=== PATIENT | female | born 1950 | race Native Hawaiian/Other Pacific Islander ===

== ENCOUNTER 2017-08-12 09:35 | Inpatient (IN) | payer OTHER, SELFPAY ==
[2017-08-12] VITALS (27 sets, daily range): BP systolic 80–195; BP diastolic 40–117; PULSE 61–67; RESP 11–24; TEMP 36.1–37.1; O2SAT 95–100; BMI 42.0
--- NOTE | 2017-08-12 | DI.CT.S_ITS ---
PROCEDURE: CT HEAD/BRAIN WO CON INDICATIONS: FOUND DOWN TECHNIQUE: Noncontrast 4.5 mm thick angled axial sections acquired from the foramen magnum to the vertex, with coronal and sagittal reformats. For radiation dose reduction, the following was used: automated exposure control, adjustment of mA and/or kV according to patient size. Plain films: None. FINDINGS: Image quality: Excellent. CSF spaces: Basal cisterns are patent. No extra-axial fluid collections. The ventricles are symmetric in size and shape. Brain: No intracranial bleeds or brain parenchymal masses. There is a partially calcified 8 x 9 mm radiodensity located just to the left of the posterior midline falx, likely a small meningioma without adjacent edema or mass effect There is cerebral volume loss for age, with resultant ventricular and sulcal prominence. There also is a region of what appears to be chronic encephalomalacia at the posterior right temporal parietal region, with an overall estimated dimension of up to 5.2 cm. The absence of adjacent mass effect given this low attenuation argues towards chronicity rather than subacute stroke. There are periventricular and deep white matter chronic small vessel ischemic changes. There is intracranial internal carotid artery atherosclerosis. Skull and face: Calvarium and visualized facial bones appear intact, without suspicious lesions. Sinuses: Visualized sinuses and mastoids are clear. IMPRESSION: 1. 5.2 cm area of right posterior temporal parietal low attenuation in the cortex and subcortical white matter without mass effect consistent with chronic encephalomalacia from prior stroke rather than subacute stroke. MR scanning may be warranted for more accurate assessment. 2. 8 x 9 mm presumed meningioma without adjacent mass effect or edema at the left paramedian posterior left cerebrum, occipital parietal junction, as an incidental finding. This area could be assessed with MR scanning with contrast to establish a definitive diagnosis. 3. If possible it would be valuable to obtain old head CT or MR scanning if available for comparison. Dictated by: Asa Garcia M.D. on 08/12/2017 at 9:54 Approved by: Asa Garcia M.D. on 08/12/2017 at 9:59
[2017-08-12] MEDS: KETAMINE 500 MG/5 ML INJ 300 MG IV (09:50)
[2017-08-12] MEDS: SUCCINYLCHOLINE 200 MG/10 ML VIAL 150 MG IV (09:50)
--- NOTE | 2017-08-12 09:50 | DI.RAD.S_ITS ---
PROCEDURE: XR CHEST 1V INDICATIONS: intubation TECHNIQUE: One view of the chest was acquired. COMPARISON: [facility], CT, CT ANGIO CHEST ABDOMEN PELVIS, 08/12/2017, 10:28. [facility], CR, ABDOMEN ACUTE SERIES, 07/30/2016, 14:06. FINDINGS: Surgical changes and devices: The tip of the endotracheal tube is within the right mainstem bronchus. There is a cardiac pacemaker. Lungs and pleura: Left lower lobe infiltrates suspicious for pneumonia or atelectasis. No pleural effusions or pneumothorax. Mediastinum: Mediastinal contours appear normal. Heart size is normal. Bones and chest wall: No suspicious bony lesions. Overlying soft tissues appear unremarkable. IMPRESSION: 1. The tip of the endotracheal tube is within the right mainstem bronchus. 2. Left lower lobe pneumonia or atelectasis. Dr. Johnson was informed of the result on 08/12/2017 at 1101 hours. The ET tube was pulled back. On the follow up CT, it is 1.2 cm above cezar. Dictated by: Francesco Rodriguez M.D. on 08/12/2017 at 10:58 Approved by: Francesco Rodriguez M.D. on 08/12/2017 at 11:02
--- NOTE | 2017-08-12 09:59 | DI.CT.S_ITS ---
PROCEDURE: CT ANGIO CHEST ABDOMEN PELVIS INDICATIONS: Unresponsive TECHNIQUE: Precontrast 5 mm thick sections acquired from the lung apices to the iliac crests. After the administration of intravenous contrast, 2.5 mm thick sections again acquired from the lung apices to the iliac crests. Maximum intensity projection (MIP) oblique sagittal and coronal reformats were then acquired. For radiation dose reduction, the following was used: automated exposure control. COMPARISON: [facility], CR, XR CHEST 1V, 08/12/2017, 9:49. FINDINGS: Image quality: Excellent. AORTA: The aorta is normal in caliber and position. No aneurysm or dissection. The aortic root measures 3.3 cm in diameter. The ascending aorta measures 3.2 cm in diameter. The proximal aortic arch measures 3.1 cm, tapering to 2.6 cm and is large. Descending thoracic aorta measures from 2.2 cm to 2.4 cm. Abdominal aorta is normal in size. CHEST: Lungs and pleura: Left lower lobe infiltrate and consolidation consistent with pneumonia. There is right basilar atelectasis. Mild bilateral groundglass infiltrates may be secondary to mild pulmonary edema. No pleural effusions or pneumothorax. Central and peripheral airways are patent and normal in caliber. Mediastinum: There is an endotracheal tube with the tip 1.2 cm above cezar. Heart size is normal. No pericardial effusion. No mediastinal or hilar adenopathy by size criteria. Central pulmonary arteries are normal in size. Esophagus is normal in caliber. Distal esophagus is distended likely secondary to gastroesophageal reflux. Bones and chest wall: No axillary adenopathy by size criteria. Thyroid gland is normal. No suspicious bony lesions. No vertebral body compression fractures. Multiple old left rib fractures are noted. ABDOMEN: Vasculature: Celiac trunk is patent and normal in color. 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 Inferior mesenteric artery is patent. There is a single renal artery on each side with renal artery ostium calcifications. Renal arteries are patent. Solid organs: Liver is normal in size and enhancement. Gallbladder contains ossified gallstones. Biliary system is non-dilated. Pancreas is atrophic with fatty infiltration. Spleen is normal in size and enhancement. No adrenal nodules. Both kidneys are normal in size and enhancement, without hydronephrosis. Peritoneum and bowel: No free fluid or air. Bowel loops are normal in caliber and wall thickness. Nodes and vessels: No retroperitoneal or mesenteric adenopathy by size criteria. Inferior vena cava is normal in morphology. Miscellaneous: No ventral hernias. PELVIS: Genitourinary: Bladder is contracted with a Gonzalez catheter. Miscellaneous: No inguinal hernias or adenopathy. No ventral hernias. Bones: No suspicious bony lesions. No vertebral body compression fractures. There is grade 1 anterolisthesis of L5 over S1. Degenerative disc and facet disease in thoracic and lumbar spine. IMPRESSION: 1. No evidence for aortic dissection or aneurysm. 2. High-grade stenosis of SMA. 3. Left lower lobe pneumonia. 4. Mild bilateral groundglass infiltrates may be secondary to superimposed pulmonary edema. Recommend clinical correlation. 4. Distended distal esophagus may be secondary gastroesophageal reflux. 5. Cholelithiasis. Dictated by: Francesco Rodriguez M.D. on 08/12/2017 at 11:02 Approved by: Francesco Rodriguez M.D. on 08/12/2017 at 11:18
[2017-08-12 10:27] LABS: Add Manual Diff / Slide Review NO; Basophils Percent Auto 0.5 % (0-2); Hematocrit 46.2 % (36-46); Hemoglobin 14.9 g/dL (12.0-16.0); Lymphocytes Percent Auto 3.8 % (25-40); Mean Corpuscular HGB Conc 32.2 % (30-36); Mean Corpuscular Hemoglobin 28.9 PG (26-34); Mean Corpuscular Volume 89.7 fL (80-100); Monocytes Percent Auto 3.2 % (3-14); Neutrophils Absolute Auto 11900 /uL (3000-5900); Neutrophils Percent Auto 92.5 % (50-75); Platelet Count 214 X10^3/uL (150-400); Red Blood Cell Count 5.15 X10^6/uL (4.0-5.2); Red Cell Distribution Width 14.2 % (11.6-14.8); White Blood Cell Count 12.9 X10^3/uL (4.5-11.0)
--- NOTE | 2017-08-12 10:27 | ED.GENADULT ---
HPI - General Adult General Chief complaint: Neuro Symptoms/Deficit Stated complaint: Weakness Time Seen by Provider: 08/12/17 09:50 Source: EMS Mode of arrival: EMS Limitations: altered mental status History of Present Illness HPI narrative: Patient is a 67-year-old female who was found down by her family this morning. According the EMS she was found prone and not responsive but breathing. She does have a history of stroke, and is on Eliquis for her heart. She has a known AICD. She was last known normal last night. He was doing well. She however has not been taking all of her medications due to insurance issues. Related Data Home Medications Medication Instructions Recorded Confirmed apixaban [Eliquis] 5 mg PO BID #0 07/30/16 08/12/17 atorvastatin 40 mg PO QDAY #0 07/30/16 08/12/17 carvedilol [Coreg] 25 mg PO BIDCC #0 07/30/16 08/12/17 chlorthalidone 25 mg PO DAILY #0 07/30/16 08/12/17 diltiazem HCl [Cartia XT] 120 mg PO QDAY #0 07/30/16 08/12/17 insulin glargine [Lantus Solostar 60 units SQ DAILY #0 07/30/16 08/12/17 U-100 Insulin] insulin glulisine U-100 [Apidra 1 dose SQ TIDCC #0 07/30/16 08/12/17 SoloStar U-100 Insulin] losartan 50 mg PO BID #0 07/30/16 08/12/17 trazodone 50 mg PO DAILY 08/12/17 08/12/17 Allergies Allergy/AdvReac Type Severity Reaction Status Date / Time lisinopril [LISINOPRIL] Allergy Unknown RASG Verified 08/12/17 14:48 metformin [From GLUCOPHAGE] Allergy Unknown RASH Unverified 08/12/17 14:48 naproxen [From NAPROSYN] Allergy Unknown RASH Unverified 08/12/17 14:49 Review of Systems Review of Systems Unable to obtain [facility] Medical History Diabetes (Chronic) Atrial fibrillation (Acute) Pacemaker (Chronic) Hypertension (Acute) Social History household members: family Smoking Status: Former smoker alcohol intake: never Exam Initial Vital Signs Initial Vital Signs: Vital Signs Pulse Rate 65 08/12/17 10:54 Respiratory Rate 11 L 07/06/18 10:54 Blood Pressure 163/97 H 08/12/17 10:54 Pulse Oximetry 97 08/12/17 10:54 Const General: ill appearing Other: Obtunded HENMT Head: normal to inspection, normocephalic, atraumatic and No abrasion Eyes Pupils: PERRL EOM: EOM intact bilaterally Neck Neck: normal visual inspection Chest Chest: normal inspection of the chest Resp Effort & Inspection: not able to speak in complete sentences, decreased respiratory effort, grunting and labored Cardio Rate: regular rate Rhythm: regular rhythm Heart Sounds: S1 normal and S2 normal GI Palpation: soft (obese), No firm, No guarding and No rigid Skin General: no rashes or lesions noted, No jaundice and No petechiae Neuro General: not alert, awake (Not appropriate), not oriented x3 and moves all extremities Cranial Nerves: CN's II-XI intact bilaterally and facial strength normal Procedures Intubation Time out performed: Yes sedative: Ketamine Mg Given: 300 paralytic: Succinylcholine Mg Given: 150 Laryngoscope: fiber optic video scope ([place] scope) ET Tube Size: 7.5 ET Tube Uncuffed: No Tube Secured Depth (cm): 23 Tube Secured Location: lips Tube Placement Confirmation: Visualized tube passing through cords, Equal breath sounds bilaterally, No breath sounds over epigastrium, Confirmation by capnometry and Chest Xray Patient Tolerated Procedure: Well Intubation Complications: none Course Orders Ordered: ED Orders 08/12/17 09:52 EKG-12 Lead Stat 08/12/17 09:59 CT angio chest abdomen pelvis Stat 08/12/17 10:10 Acetaminophen Stat B Type Natriuretic Peptide Stat Complete Blood Count AUTO DIFF Stat Comprehensive Metabolic Panel Stat Ethanol (ETOH) Stat Ketones (Beta-Hydroxybutyrate) Stat Lactate (Lactic Acid) Stat Partial Thromboplastin Time Stat Procalcitonin Stat Prothrombin Time INR Stat Salicylate Stat Troponin & CK Cardiac Panel Stat 08/12/17 10:30 Urinalysis and Microscopic Stat Urine Culture Stat 08/12/17 11:00 ABG [Arterial Blood Gas] Stat 08/12/17 11:35 Blood Culture Stat 08/12/17 12:08 Education, smoking cessation ONGOING 08/12/17 12:40 MRSA PCR Stat 08/12/17 13:30 Magnesium Urgent Potassium Urgent 08/12/17 13:31 Glucose Stat 08/12/17 16:10 Lactate 4HR (Lactic Acid Rflx) Stat 08/13/17 05:00 Basic Metabolic Panel Routine Complete Blood Count AUTO DIFF Routine Enoxaparin Sodium (Lovenox) 40 mg SUBCUT DAILY AMBER Levofloxacin (Levaquin) 750 mg in 150 mls @ 100 mls/hr IV Q24H AMBER Last Infusion: 08/12/17 16:28 Dose: 0 mls/hr Admin: 08/12/17 12:51 Dose: 100 mls/hr Propofol (Propofol) 1,000 mg in 100 mls @ 9 mls/hr IV TITRATE AMBER; Protocol Last Admin: 08/12/17 12:51 Dose: 9 mls/hr Sodium Chloride (Normal Saline 0.9%) 1,000 mls @ 1,000 mls/hr IV BOLUS AMBER Stop: 08/13/17 13:14 Last Infusion: 08/12/17 13:27 Dose: 0 mls/hr Admin: 08/12/17 12:49 Dose: 1,000 mls/hr Insulin Human Regular 100 unit (/ Sodium Chloride) 100 mls @ 6 mls/hr IV TITRATE AMBER; Protocol Last Titration: 08/12/17 18:05 Dose: 12 units/hr, 12 mls/hr Admin: 08/12/17 15:56 Dose: 6 units/hr, 6 mls/hr Sodium Chloride (Normal Saline 0.9%) 1,000 mls @ 150 mls/hr IV CONT AMBER Last Admin: 08/12/17 13:47 Dose: 150 mls/hr Insulin Glargine (Lantus Solostar (Pen)) 60 unit SUBCUT DAILY AMBER Last Admin: 08/12/17 16:31 Dose: 60 unit Discontinued Medications Furosemide (Lasix) 40 mg IV NOW ONE Stop: 08/12/17 10:59 Last Admin: 08/12/17 11:10 Dose: Not Given Sodium Chloride (Normal Saline 0.9%) 1,000 mls @ 150 mls/hr IV CONT AMBER Last Admin: 08/12/17 11:10 Dose: 150 mls/hr Calcium Gluconate 4.65 meq/ (Sodium Chloride) 60 mls @ 120 mls/hr IV NOW ONE Stop: 08/12/17 10:59 Last Infusion: 08/12/17 12:48 Dose: 0 mls/hr Admin: 08/12/17 11:43 Dose: 120 mls/hr Propofol (Propofol) 1,000 mg in 100 mls @ 20 mls/hr IV TITRATE AMBER; Protocol Last Admin: 08/12/17 11:53 Dose: 20 mls/hr Sodium Chloride (Normal Saline 0.9%) 1,000 mls @ 1,000 mls/hr IV BOLUS ONE Stop: 08/12/17 12:50 Last Infusion: 08/12/17 12:48 Dose: 0 mls/hr Admin: 08/12/17 11:52 Dose: 1,000 mls/hr Insulin Human Regular (Humulin R) 10 unit IV NOW ONE Stop: 08/12/17 10:59 Last Admin: 08/12/17 11:10 Dose: 10 unit Ketamine HCl (Ketalar) 300 mg IV NOW ONE Stop: 08/12/17 09:51 Last Admin: 08/12/17 09:50 Dose: 300 mg Lorazepam (Ativan) 2 mg IV NOW ONE Stop: 08/12/17 11:04 Last Admin: 08/12/17 11:10 Dose: 2 mg Propofol (Diprivan) 250 mg IV NOW ONE Stop: 08/12/17 11:58 Last Admin: 08/12/17 12:00 Dose: 250 mg Succinylcholine Chloride (Quelicin) 150 mg IV NOW ONE Stop: 08/12/17 09:51 Last Admin: 08/12/17 09:50 Dose: 150 mg Vital Signs - 8 hr 08/12/17 10:54 08/12/17 11:02 08/12/17 11:30 Temperature 97.1 F L Pulse Rate 65 61 64 Respiratory Rate 11 L 16 16 Blood Pressure 163/97 H Blood Pressure [Right Arm] 116/90 H 136/117 H Pulse Oximetry 97 100 97 08/12/17 11:39 08/12/17 12:01 08/12/17 12:03 Temperature 97.0 F L Pulse Rate 65 65 65 Respiratory Rate 16 16 16 Blood Pressure 133/85 H Blood Pressure [Right Arm] 80/55 L 104/82 H Pulse Oximetry 95 98 99 08/12/17 12:42 08/12/17 12:59 08/12/17 13:03 Temperature Pulse Rate 65 67 65 Respiratory Rate 16 16 24 Blood Pressure 119/81 H 195/116 H Blood Pressure [Right Arm] Pulse Oximetry 98 98 08/12/17 14:03 08/12/17 14:40 08/12/17 15:03 Temperature Pulse Rate 65 65 65 Respiratory Rate 15 16 16 Blood Pressure 152/51 H 89/40 L 157/86 H Blood Pressure [Right Arm] Pulse Oximetry 99 100 100 08/12/17 16:16 08/12/17 16:32 08/12/17 17:07 Temperature 98.7 F 98.4 F Pulse Rate 65 65 Respiratory Rate 16 16 Blood Pressure 122/70 H 109/79 Blood Pressure [Right Arm] Pulse Oximetry 99 99 99 08/12/17 18:08 Temperature Pulse Rate 65 Respiratory Rate 16 Blood Pressure 117/73 Blood Pressure [Right Arm] Pulse Oximetry 99 Medical Decision Making MDM Narrative Medical decision making narrative: Patient intubated for airway protection. She was quite up tendon not able to follow commands and no gag reflex she was making some purposeful movements. It sounds as though she stopped taking some of her medications due to insurance reasons. She is found to be hyperglycemic and hyperkalemic. He is given insulin and IV fluids. Other testing and workup fairly unremarkable. Family is at bedside. Dr. Storey has been called and updated on test results and current treatments. He is in the ED now to evaluate patient. Lab Data Lab results reviewed: Yes I reviewed the patient's lab results. Result diagrams: 08/12/17 10:10 08/12/17 13:31 Lab Results 08/12/17 08/12/17 08/12/17 Range/Units 10:10 10:10 10:10 WBC 12.9 H (4.5-11.0) X10^3/uL RBC 5.15 (4.0-5.2) X10^6/uL Hgb 14.9 (12.0-16.0) g/dL Hct 46.2 H (36-46) % MCV 89.7 (80-100) fL MCH 28.9 (26-34) PG MCHC 32.2 (30-36) % RDW 14.2 (11.6-14.8) % Plt Count 214 (150-400) X10^3/uL Neut % (Auto) 92.5 H (50-75) % Lymph % (Auto) 3.8 L (25-40) % [place] % (Auto) 3.2 (3-14) % Eos % (Auto) 0.0 L (2-4) % Baso % (Auto) 0.5 (0-2) % Neut # (Auto) 99584 H (9704-4768) /uL PT (10.1-12.7) SECONDS INR (0.9-1.3) APTT (26.4-36.2) SECONDS ABG pH (7.35-7.45) ABG pCO2 (35-45) mmHg ABG pO2 (80-105) mmHg ABG HCO3 (23-27) mmol/L ABG Total CO2 (23-27) mmol/L ABG O2 Saturation (95-100) % ABG Base Excess (-2-3) mmol/L FiO2 Sodium 131 L (137-145) mmol/L Potassium 6.0 H (3.4-5.1) mmol/L Chloride 95 L (98-107) mmol/L Carbon Dioxide 21 L (22-32) mmol/L BUN 42 H (7-17) mg/dL Creatinine 1.60 H (0.52-1.04) mg/dL Estimated GFR 32.2 L (>60) mL/min BUN/Creatinine Ratio 26.3 H (6-22) Glucose 643 H* (80-110) mg/dL Lactate 4.1 H (0.7-2.1) mmol/L Calcium 8.6 (8.4-10.2) mg/dL Magnesium (1.6-2.3) mg/dL Total Bilirubin 0.6 (0.2-1.3) mg/dL AST 34 (14-36) IU/L ALT 25 (9-52) IU/L Alkaline Phosphatase 201 H (38-126) U/L Total Creatine Kinase 133 (30-135) U/L CK-MB (CK-2) 4.16 H (<2.37) ng/mL CK-MB (CK-2) Rel Index 3.1 (1.5-5.0) % Troponin I 0.068 H (0.01-0.034) ng/mL B-Natriuretic Peptide (<100) Total Protein 7.5 (6.3-8.2) g/dL Albumin 3.5 (3.5-5.0) g/dL Globulin 4.0 (1.7-4.1) g/dL Albumin/Globulin Ratio 0.9 L (1.0-2.8) Procalcitonin (<0.5) ng/mL Urine Color Urine Appearance Urine pH (4.5-8.0) Ur Specific [place] (1.000-1.035) Urine Protein (Negative) Urine Glucose (UA) (Normal) g/dL Urine Ketones (NEGATIVE) Urine Occult Blood (Negative) Urine Nitrate (Negative) Urine Bilirubin (NEGATIVE) Urine Urobilinogen (0.2) E.U./dL Ur Leukocyte Esterase (NEGATIVE) Urine RBC (0-5/HPF) Urine WBC (0-5/HPF) Amorphous Sediment Urine Bacteria (None) Urine Mucus (Negative) Urine Yeast (None) Ur Culture Indicated? Micro UA Comment Nasal Screen MRSA (PCR) (Negative) Salicylates < 1.0 (<20) mg/dL Acetaminophen < 10 L (10-30) ug/mL Ethyl Alcohol < 10 mg/dL Ketones (<0.27) mmol/L 08/12/17 08/12/17 08/12/17 Range/Units 10:10 10:10 10:10 WBC (4.5-11.0) X10^3/uL RBC (4.0-5.2) X10^6/uL Hgb (12.0-16.0) g/dL Hct (36-46) % MCV (80-100) fL MCH (26-34) PG MCHC (30-36) % RDW (11.6-14.8) % Plt Count (150-400) X10^3/uL Neut % (Auto) (50-75) % Lymph % (Auto) (25-40) % [place] % (Auto) (3-14) % Eos % (Auto) (2-4) % Baso % (Auto) (0-2) % Neut # (Auto) (3283-7774) /uL PT 11.4 (10.1-12.7) SECONDS INR 1.1 (0.9-1.3) APTT 25 L (26.4-36.2) SECONDS ABG pH (7.35-7.45) ABG pCO2 (35-45) mmHg ABG pO2 (80-105) mmHg ABG HCO3 (23-27) mmol/L ABG Total CO2 (23-27) mmol/L ABG O2 Saturation (95-100) % ABG Base Excess (-2-3) mmol/L FiO2 Sodium (137-145) mmol/L Potassium (3.4-5.1) mmol/L Chloride (98-107) mmol/L Carbon Dioxide (22-32) mmol/L BUN (7-17) mg/dL Creatinine (0.52-1.04) mg/dL Estimated GFR (>60) mL/min BUN/Creatinine Ratio (6-22) Glucose (80-110) mg/dL Lactate (0.7-2.1) mmol/L Calcium (8.4-10.2) mg/dL Magnesium (1.6-2.3) mg/dL Total Bilirubin (0.2-1.3) mg/dL AST (14-36) IU/L ALT (9-52) IU/L Alkaline Phosphatase (38-126) U/L Total Creatine Kinase (30-135) U/L CK-MB (CK-2) (<2.37) ng/mL CK-MB (CK-2) Rel Index (1.5-5.0) % Troponin I (0.01-0.034) ng/mL B-Natriuretic Peptide 1120.0 H (<100) Total Protein (6.3-8.2) g/dL Albumin (3.5-5.0) g/dL Globulin (1.7-4.1) g/dL Albumin/Globulin Ratio (1.0-2.8) Procalcitonin (<0.5) ng/mL Urine Color Urine Appearance Urine pH (4.5-8.0) Ur Specific [place] (1.000-1.035) Urine Protein (Negative) Urine Glucose (UA) (Normal) g/dL Urine Ketones (NEGATIVE) Urine Occult Blood (Negative) Urine Nitrate (Negative) Urine Bilirubin (NEGATIVE) Urine Urobilinogen (0.2) E.U./dL Ur Leukocyte Esterase (NEGATIVE) Urine RBC (0-5/HPF) Urine WBC (0-5/HPF) Amorphous Sediment Urine Bacteria (None) Urine Mucus (Negative) Urine Yeast (None) Ur Culture Indicated? Micro UA Comment Nasal Screen MRSA (PCR) (Negative) Salicylates (<20) mg/dL Acetaminophen (10-30) ug/mL Ethyl Alcohol mg/dL Ketones 1.88 H (<0.27) mmol/L 08/12/17 08/12/17 08/12/17 Range/Units 10:10 10:30 11:00 WBC (4.5-11.0) X10^3/uL RBC (4.0-5.2) X10^6/uL Hgb (12.0-16.0) g/dL Hct (36-46) % MCV (80-100) fL MCH (26-34) PG MCHC (30-36) % RDW (11.6-14.8) % Plt Count (150-400) X10^3/uL Neut % (Auto) (50-75) % Lymph % (Auto) (25-40) % [place] % (Auto) (3-14) % Eos % (Auto) (2-4) % Baso % (Auto) (0-2) % Neut # (Auto) (3766-9083) /uL PT (10.1-12.7) SECONDS INR (0.9-1.3) APTT (26.4-36.2) SECONDS ABG pH 7.32 L (7.35-7.45) ABG pCO2 46.6 H (35-45) mmHg ABG pO2 370 H* (80-105) mmHg ABG HCO3 22 L (23-27) mmol/L ABG Total CO2 24 (23-27) mmol/L ABG O2 Saturation 100 (95-100) % ABG Base Excess -4.0 L (-2-3) mmol/L FiO2 100 Sodium (137-145) mmol/L Potassium (3.4-5.1) mmol/L Chloride (98-107) mmol/L Carbon Dioxide (22-32) mmol/L BUN (7-17) mg/dL Creatinine (0.52-1.04) mg/dL Estimated GFR (>60) mL/min BUN/Creatinine Ratio (6-22) Glucose (80-110) mg/dL Lactate (0.7-2.1) mmol/L Calcium (8.4-10.2) mg/dL Magnesium (1.6-2.3) mg/dL Total Bilirubin (0.2-1.3) mg/dL AST (14-36) IU/L ALT (9-52) IU/L Alkaline Phosphatase (38-126) U/L Total Creatine Kinase (30-135) U/L CK-MB (CK-2) (<2.37) ng/mL CK-MB (CK-2) Rel Index (1.5-5.0) % Troponin I (0.01-0.034) ng/mL B-Natriuretic Peptide (<100) Total Protein (6.3-8.2) g/dL Albumin (3.5-5.0) g/dL Globulin (1.7-4.1) g/dL Albumin/Globulin Ratio (1.0-2.8) Procalcitonin 0.05 (<0.5) ng/mL Urine Color Yellow Urine Appearance Clear Urine pH 5.5 (4.5-8.0) Ur Specific [place] 1.010 (1.000-1.035) Urine Protein 3+ H (Negative) Urine Glucose (UA) 3+ (Normal) g/dL Urine Ketones Trace H (NEGATIVE) Urine Occult Blood 3+ H (Negative) Urine Nitrate Negative (Negative) Urine Bilirubin Negative (NEGATIVE) Urine Urobilinogen 0.2 (0.2) E.U./dL Ur Leukocyte Esterase Negative (NEGATIVE) Urine RBC 5-10/hpf H (0-5/HPF) Urine WBC 0-1/hpf (0-5/HPF) Amorphous Sediment 2+ Urine Bacteria Few (2-10) H (None) Urine Mucus 1+ H (Negative) Urine Yeast 1-5/hpf H (None) Ur Culture Indicated? Specimen cultured Micro UA Comment Not Reportable Nasal Screen MRSA (PCR) (Negative) Salicylates (<20) mg/dL Acetaminophen (10-30) ug/mL Ethyl Alcohol mg/dL Ketones (<0.27) mmol/L 08/12/17 08/12/17 08/12/17 Range/Units 12:40 13:30 13:31 WBC (4.5-11.0) X10^3/uL RBC (4.0-5.2) X10^6/uL Hgb (12.0-16.0) g/dL Hct (36-46) % MCV (80-100) fL MCH (26-34) PG MCHC (30-36) % RDW (11.6-14.8) % Plt Count (150-400) X10^3/uL Neut % (Auto) (50-75) % Lymph % (Auto) (25-40) % [place] % (Auto) (3-14) % Eos % (Auto) (2-4) % Baso % (Auto) (0-2) % Neut # (Auto) (4618-1795) /uL PT (10.1-12.7) SECONDS INR (0.9-1.3) APTT (26.4-36.2) SECONDS ABG pH (7.35-7.45) ABG pCO2 (35-45) mmHg ABG pO2 (80-105) mmHg ABG HCO3 (23-27) mmol/L ABG Total CO2 (23-27) mmol/L ABG O2 Saturation (95-100) % ABG Base Excess (-2-3) mmol/L FiO2 Sodium (137-145) mmol/L Potassium 4.3 D (3.4-5.1) mmol/L Chloride (98-107) mmol/L Carbon Dioxide (22-32) mmol/L BUN (7-17) mg/dL Creatinine (0.52-1.04) mg/dL Estimated GFR (>60) mL/min BUN/Creatinine Ratio (6-22) Glucose 540 H* (80-110) mg/dL Lactate (0.7-2.1) mmol/L Calcium (8.4-10.2) mg/dL Magnesium 1.6 (1.6-2.3) mg/dL Total Bilirubin (0.2-1.3) mg/dL AST (14-36) IU/L ALT (9-52) IU/L Alkaline Phosphatase (38-126) U/L Total Creatine Kinase (30-135) U/L CK-MB (CK-2) (<2.37) ng/mL CK-MB (CK-2) Rel Index (1.5-5.0) % Troponin I (0.01-0.034) ng/mL B-Natriuretic Peptide (<100) Total Protein (6.3-8.2) g/dL Albumin (3.5-5.0) g/dL Globulin (1.7-4.1) g/dL Albumin/Globulin Ratio (1.0-2.8) Procalcitonin (<0.5) ng/mL Urine Color Urine Appearance Urine pH (4.5-8.0) Ur Specific [place] (1.000-1.035) Urine Protein (Negative) Urine Glucose (UA) (Normal) g/dL Urine Ketones (NEGATIVE) Urine Occult Blood (Negative) Urine Nitrate (Negative) Urine Bilirubin (NEGATIVE) Urine Urobilinogen (0.2) E.U./dL Ur Leukocyte Esterase (NEGATIVE) Urine RBC (0-5/HPF) Urine WBC (0-5/HPF) Amorphous Sediment Urine Bacteria (None) Urine Mucus (Negative) Urine Yeast (None) Ur Culture Indicated? Micro UA Comment Nasal Screen MRSA (PCR) Negative for mrsa (Negative) Salicylates (<20) mg/dL Acetaminophen (10-30) ug/mL Ethyl Alcohol mg/dL Ketones (<0.27) mmol/L 08/12/17 Range/Units 16:10 WBC (4.5-11.0) X10^3/uL RBC (4.0-5.2) X10^6/uL Hgb (12.0-16.0) g/dL Hct (36-46) % MCV (80-100) fL MCH (26-34) PG MCHC (30-36) % RDW (11.6-14.8) % Plt Count (150-400) X10^3/uL Neut % (Auto) (50-75) % Lymph % (Auto) (25-40) % [place] % (Auto) (3-14) % Eos % (Auto) (2-4) % Baso % (Auto) (0-2) % Neut # (Auto) (4164-6973) /uL PT (10.1-12.7) SECONDS INR (0.9-1.3) APTT (26.4-36.2) SECONDS ABG pH (7.35-7.45) ABG pCO2 (35-45) mmHg ABG pO2 (80-105) mmHg ABG HCO3 (23-27) mmol/L ABG Total CO2 (23-27) mmol/L ABG O2 Saturation (95-100) % ABG Base Excess (-2-3) mmol/L FiO2 Sodium (137-145) mmol/L Potassium (3.4-5.1) mmol/L Chloride (98-107) mmol/L Carbon Dioxide (22-32) mmol/L BUN (7-17) mg/dL Creatinine (0.52-1.04) mg/dL Estimated GFR (>60) mL/min BUN/Creatinine Ratio (6-22) Glucose (80-110) mg/dL Lactate 3.3 H (0.7-2.1) mmol/L Calcium (8.4-10.2) mg/dL Magnesium (1.6-2.3) mg/dL Total Bilirubin (0.2-1.3) mg/dL AST (14-36) IU/L ALT (9-52) IU/L Alkaline Phosphatase (38-126) U/L Total Creatine Kinase (30-135) U/L CK-MB (CK-2) (<2.37) ng/mL CK-MB (CK-2) Rel Index (1.5-5.0) % Troponin I (0.01-0.034) ng/mL B-Natriuretic Peptide (<100) Total Protein (6.3-8.2) g/dL Albumin (3.5-5.0) g/dL Globulin (1.7-4.1) g/dL Albumin/Globulin Ratio (1.0-2.8) Procalcitonin (<0.5) ng/mL Urine Color Urine Appearance Urine pH (4.5-8.0) Ur Specific [place] (1.000-1.035) Urine Protein (Negative) Urine Glucose (UA) (Normal) g/dL Urine Ketones (NEGATIVE) Urine Occult Blood (Negative) Urine Nitrate (Negative) Urine Bilirubin (NEGATIVE) Urine Urobilinogen (0.2) E.U./dL Ur Leukocyte Esterase (NEGATIVE) Urine RBC (0-5/HPF) Urine WBC (0-5/HPF) Amorphous Sediment Urine Bacteria (None) Urine Mucus (Negative) Urine Yeast (None) Ur Culture Indicated? Micro UA Comment Nasal Screen MRSA (PCR) (Negative) Salicylates (<20) mg/dL Acetaminophen (10-30) ug/mL Ethyl Alcohol mg/dL Ketones (<0.27) mmol/L Imaging Data CT scan - head: Radiologist's impression: PROCEDURE: CT HEAD/BRAIN WO CON INDICATIONS: FOUND DOWN TECHNIQUE: Noncontrast 4.5 mm thick angled axial sections acquired from the foramen magnum to the vertex, with coronal and sagittal reformats. For radiation dose reduction, the following was used: automated exposure control, adjustment of mA and/or kV according to patient size. Plain films: None. FINDINGS: Image quality: Excellent. CSF spaces: Basal cisterns are patent. No extra-axial fluid collections. The ventricles are symmetric in size and shape. Brain: No intracranial bleeds or brain parenchymal masses. There is a partially calcified 8 x 9 mm radiodensity located just to the left of the posterior midline falx, likely a small meningioma without adjacent edema or mass effect There is cerebral volume loss for age, with resultant ventricular and sulcal prominence. There also is a region of what appears to be chronic encephalomalacia at the posterior right temporal parietal region, with an overall estimated dimension of up to 5.2 cm. The absence of adjacent mass effect given this low attenuation argues towards chronicity rather than subacute stroke. There are periventricular and deep white matter chronic small vessel ischemic changes. There is intracranial internal carotid artery atherosclerosis. Skull and face: Calvarium and visualized facial bones appear intact, without suspicious lesions. Sinuses: Visualized sinuses and mastoids are clear. IMPRESSION: 1. 5.2 cm area of right posterior temporal parietal low attenuation in the cortex and subcortical white matter without mass effect consistent with chronic encephalomalacia from prior stroke rather than subacute stroke. MR scanning may be warranted for more accurate assessment. 2. 8 x 9 mm presumed meningioma without adjacent mass effect or edema at the left paramedian posterior left cerebrum, occipital parietal junction, as an incidental finding. This area could be assessed with MR scanning with contrast to establish a definitive diagnosis. 3. If possible it would be valuable to obtain old head CT or MR scanning if available for comparison. Dictated by: Asa Garcia M.D. on 08/12/2017 at 9:54 Approved by: Asa Garcia M.D. on 08/12/2017 at 9:59 Chest x-ray: Radiologist's impression: PROCEDURE: XR CHEST 1V INDICATIONS: intubation TECHNIQUE: One view of the chest was acquired. COMPARISON: Located Within [facility], CT, CT ANGIO CHEST ABDOMEN PELVIS, 08/12/2017, 10:28. Located Within [facility], CR, ABDOMEN ACUTE SERIES, 07/30/2016, 14:06. FINDINGS: Surgical changes and devices: The tip of the endotracheal tube is within the right mainstem bronchus. There is a cardiac pacemaker. Lungs and pleura: Left lower lobe infiltrates suspicious for pneumonia or atelectasis. No pleural effusions or pneumothorax. Mediastinum: Mediastinal contours appear normal. Heart size is normal. Bones and chest wall: No suspicious bony lesions. Overlying soft tissues appear unremarkable. IMPRESSION: 1. The tip of the endotracheal tube is within the right mainstem bronchus. 2. Left lower lobe pneumonia or atelectasis. Dr. Johnson was informed of the result on 08/12/2017 at 1101 hours. The ET tube was pulled back. On the follow up CT, it is 1.2 cm above cezar. Dictated by: Francesco Rodriguez M.D. on 08/12/2017 at 10:58 Approved by: Francesco Rodriguez M.D. on 08/12/2017 at 11:02 angio chest ab pelvis: Radiologist's impression: PROCEDURE: CT ANGIO CHEST ABDOMEN PELVIS INDICATIONS: Unresponsive TECHNIQUE: Precontrast 5 mm thick sections acquired from the lung apices to the iliac crests. After the administration of intravenous contrast, 2.5 mm thick sections again acquired from the lung apices to the iliac crests. Maximum intensity projection (MIP) oblique sagittal and coronal reformats were then acquired. For radiation dose reduction, the following was used: automated exposure control. COMPARISON: Located Within [facility], CR, XR CHEST 1V, 08/12/2017, 9:49. FINDINGS: Image quality: Excellent. AORTA: The aorta is normal in caliber and position. No aneurysm or dissection. The aortic root measures 3.3 cm in diameter. The ascending aorta measures 3.2 cm in diameter. The proximal aortic arch measures 3.1 cm, tapering to 2.6 cm and is large. Descending thoracic aorta measures from 2.2 cm to 2.4 cm. Abdominal aorta is normal in size. CHEST: Lungs and pleura: Left lower lobe infiltrate and consolidation consistent with pneumonia. There is right basilar atelectasis. Mild bilateral groundglass infiltrates may be secondary to mild pulmonary edema. No pleural effusions or pneumothorax. Central and peripheral airways are patent and normal in caliber. Mediastinum: There is an endotracheal tube with the tip 1.2 cm above cezar. Heart size is normal. No pericardial effusion. No mediastinal or hilar adenopathy by size criteria. Central pulmonary arteries are normal in size. Esophagus is normal in caliber. Distal esophagus is distended likely secondary to gastroesophageal reflux. Bones and chest wall: No axillary adenopathy by size criteria. Thyroid gland is normal. No suspicious bony lesions. No vertebral body compression fractures. Multiple old left rib fractures are noted. ABDOMEN: Vasculature: Celiac trunk is patent and normal in color. 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 Inferior mesenteric artery is patent. There is a single renal artery on each side with renal artery ostium calcifications. Renal arteries are patent. Solid organs: Liver is normal in size and enhancement. Gallbladder contains ossified gallstones. Biliary system is non-dilated. Pancreas is atrophic with fatty infiltration. Spleen is normal in size and enhancement. No adrenal nodules. Both kidneys are normal in size and enhancement, without hydronephrosis. Peritoneum and bowel: No free fluid or air. Bowel loops are normal in caliber and wall thickness. Nodes and vessels: No retroperitoneal or mesenteric adenopathy by size criteria. Inferior vena cava is normal in morphology. Miscellaneous: No ventral hernias. PELVIS: Genitourinary: Bladder is contracted with a Gonzalez catheter. Miscellaneous: No inguinal hernias or adenopathy. No ventral hernias. Bones: No suspicious bony lesions. No vertebral body compression fractures. There is grade 1 anterolisthesis of L5 over S1. Degenerative disc and facet disease in thoracic and lumbar spine. IMPRESSION: 1. No evidence for aortic dissection or aneurysm. 2. High-grade stenosis of SMA. 3. Left lower lobe pneumonia. 4. Mild bilateral groundglass infiltrates may be secondary to superimposed pulmonary edema. Recommend clinical correlation. 4. Distended distal esophagus may be secondary gastroesophageal reflux. 5. Cholelithiasis. Dictated by: Francesco Rodriguez M.D. on 08/12/2017 at 11:02 Approved by: Francesco Rodriguez M.D. on 08/12/2017 at 11:18 ECG Data Attestation: I personally reviewed and interpreted this ECG as follows: Prior ECG tracings: available for review Interpretation: Paced rhythm rate [address] changes similar to previous EKG Discharge Plan Departure Patient Disposition: Admitted As Inpatient Clinical Impression: Acute metabolic encephalopathy, Respiratory failure, Acute hyperglycemia, Acute hyperkalemia Discharge Date/Time: 08/12/17 13:05 Interventions: ED Discharge Assessment Last Done: 08/12/17 12:42 Admit Date/Time: 08/12/17 11:50 Admit Provider: Amado Storey
[2017-08-12 10:38] LABS: Acetaminophen < 10 ug/mL (10-30); Alanine Aminotransferase 25 IU/L (9-52); Albumin 3.5 g/dL (3.5-5.0); Albumin Globulin Ratio 0.9 (1.0-2.8); Alkaline Phosphatase 201 U/L (38-126); Aspartate Aminotransferase 34 IU/L (14-36); BUN Creatinine Ratio 26.3 (6-22); Bilirubin Total 0.6 mg/dL (0.2-1.3); Blood Urea Nitrogen 42 mg/dL (7-17); Calcium 8.6 mg/dL (8.4-10.2); Carbon Dioxide 21 mmol/L (22-32); Chloride 95 mmol/L (98-107); Creatine Kinase 133 U/L (30-135); Estimated Glomerular Filt Rate 32.2 mL/min (>60); Ethanol (ETOH) < 10 mg/dL; INR 1.1 (0.9-1.3); Lactate (Lactic Acid) 4.1 mmol/L (0.7-2.1); Prothrombin Time 11.4 SECONDS (10.1-12.7); Sodium 131 mmol/L (137-145); Total Protein 7.5 g/dL (6.3-8.2)
[2017-08-12 10:40] LABS: PTT Partial Thromboplastin Tim 25 SECONDS (26.4-36.2)
[2017-08-12 10:45] LABS: Salicylate < 1.0 mg/dL (<20)
[2017-08-12 10:49] LABS: Troponin I 0.068 ng/mL (0.01-0.034)
[2017-08-12 10:51] LABS: Glucose 643 mg/dL (80-110)
[2017-08-12 10:52] LABS: CKMB % Relative Index 3.1 % (1.5-5.0); Creatine Kinase MB 4.16 ng/mL (<2.37); HEMOLYSIS 33 (0-50)
[2017-08-12] MEDS: SODIUM CHLORIDE 0.9% 1,000 ML 150 ML IV ×3 (11:10→20:29)
[2017-08-12] MEDS: LORazepam 2 MG/ML SYRINGE IV (11:10)
[2017-08-12] MEDS: INSULIN REGULAR 100 UNIT/ML 3 ML VIAL 10 UNIT IV (11:10)
[2017-08-12 11:22] LABS: Appearance Urine UA CLEAR; Bilirubin Urine UA NEGATIVE (NEGATIVE); Color Urine UA YELLOW; Glucose Urine UA 3+ g/dL (Normal); Ketones Urine UA TRACE (NEGATIVE); Leukocyte Esterase Urine UA NEGATIVE (NEGATIVE); Nitrite Urine UA Negative (Negative); Occult Blood Urine UA 3+ (Negative); Protein Urine UA 3+ (Negative); Urobilinogen Urine UA 0.2 E.U./dL (0.2); pH Urine UA 5.5 (4.5-8.0)
[2017-08-12 11:23] LABS: Ketones (Beta-Hydroxybutyrate) 1.88 mmol/L (<0.27)
[2017-08-12 11:31] LABS: Amorphous Sediment Urine 2+; Bacteria Urine Few (2-10); Mucus Urine 1+ (Negative); RBC Urine 5-10/HPF (0-5/HPF); WBC Urine 0-1/HPF (0-5/HPF)
[2017-08-12 11:32] LABS: Culture Indicated Urine Specimen Cultured
[2017-08-12] MEDS: CALCIUM GLUCONATE 4.65 MEQ in SODIUM CHLORIDE 0.9% 50 ML 120 ML IV (11:43)
[2017-08-12 11:45] LABS: Procalcitonin 0.05 ng/mL (<0.5)
[2017-08-12] MEDS: SODIUM CHLORIDE 0.9% 1,000 ML 1000 ML IV ×2 (11:52→12:49)
[2017-08-12] MEDS: PROPOFOL 1,000 MG/10 ML VIAL 20 MG IV (11:53)
[2017-08-12] MEDS: PROPOFOL 200 MG/20 ML VIAL 250 MG IV (12:00)
[2017-08-12] MEDS: PROPOFOL 1,000 MG/100 ML VIAL 9 MG IV ×2 (12:51→22:31)
[2017-08-12] MEDS: levoFLOXacin 750 MG/150 ML PIGGYBACK 100 MG IV (12:51)
[2017-08-12 12:53] LABS: pH ABG 7.32 (7.35-7.45)
[2017-08-12 12:54] LABS: Fractionated Inspired Oxygen 100; HCO3 ABG 22 mmol/L (23-27); Oxygen Saturation ABG 100 % (95-100); PO2 ABG 370 mmHg (80-105); TCO2 ABG 24 mmol/L (23-27)
--- NOTE | 2017-08-12 13:12 | P.HP_ITS ---
History of Present Illness Date Patient Seen: 08/12/17 Chief complaint: Weakness Narrative: Patient is a 67-year-old female found unresponsive by a family member earlier this morning. Patient lives with her son. He states that she seemed in usual state of health last night. This morning her granddaughter found her face down in the bathroom covered in vomitus. Also noted incontinent of stool in urine. Medics were called and patient was intubated in the ER for airway protection. Patient apparently has history of atrial fibrillation and had pacemaker placement due to bradycardia. She does not have known coronary artery disease. Family states that she ran out of her prescription pills sometime ago and did not have pills refilled due to lost her insurance. It is unclear if she has been taking her insulin. Her blood sugar was over 600 in the ER with anion gap of 16 and negative acetones. Lactic acid elevated at 4.1. Potassium 6.0. Tox screen negative. She did have some hypotension after started on propofol drip post intubation. ABG post intubation on 100% FiO2 pH 7.32, pCO2 46, PO2 307, base excess -4.0. Patient History Medical History Diabetes (Chronic) Atrial fibrillation (Acute) Pacemaker (Chronic) Hypertension (Acute) Meds Home Medications Medication Instructions Recorded Confirmed Type apixaban [Eliquis] 5 mg PO BID #0 07/30/16 08/12/17 History atorvastatin 40 mg PO QDAY #0 07/30/16 08/12/17 History carvedilol [Coreg] 25 mg PO BIDCC #0 07/30/16 08/12/17 History chlorthalidone 25 mg PO DAILY #0 07/30/16 08/12/17 History diltiazem HCl [Cartia XT] 120 mg PO QDAY #0 07/30/16 08/12/17 History insulin glargine [Lantus Solostar 60 units SQ DAILY #0 07/30/16 08/12/17 History U-100 Insulin] insulin glulisine U-100 [Apidra 1 dose SQ TIDCC #0 07/30/16 08/12/17 History SoloStar U-100 Insulin] losartan 50 mg PO BID #0 07/30/16 08/12/17 History trazodone 50 mg PO DAILY 08/12/17 08/12/17 History Allergies Allergy/AdvReac Type Severity Reaction Status Date / Time lisinopril [LISINOPRIL] Allergy Unknown RASG Unverified 05/18/17 12:27 metformin [From GLUCOPHAGE] Allergy Unknown RASH Unverified 05/18/17 12:27 naproxen [From NAPROSYN] Allergy Unknown RASH Unverified 05/18/17 12:27 Review of Systems Review of Systems unobtainable due to mental status Exam Vital Signs (past 8 hours): - 08/12/17 10:54 08/12/17 11:02 08/12/17 11:30 Temperature 97.1 F L Pulse Rate 65 61 64 Respiratory Rate 11 L 16 16 Blood Pressure 163/97 H Blood Pressure [Right Arm] 116/90 H 136/117 H Pulse Oximetry 97 100 97 08/12/17 11:39 08/12/17 12:01 08/12/17 12:42 Temperature Pulse Rate 65 65 65 Respiratory Rate 16 16 16 Blood Pressure 119/81 H Blood Pressure [Right Arm] 80/55 L 104/82 H Pulse Oximetry 95 98 98 08/12/17 12:59 Temperature Pulse Rate 67 Respiratory Rate 16 Blood Pressure Blood Pressure [Right Arm] Pulse Oximetry Oxygen Delivery Method Mechanical Ventilation Oxygen Flow Rate 15 Narrative Exam Narrative: GENERAL: This is an alert well-nourished, well-developed patient , in no apparent distress. HEAD: Atraumatic. Normocephalic. EYES: Pupils equal, round and reactive. Extraocular motions intact. No scleral icterus. No injection or drainage. OROPHARYNX: moist mucosa NECK: Trachea midline. No JVD or lymphadenopathy. CARDIOVASCULAR: Regular rate and rhythm without murmurs, gallops, or rubs. RESPIRATORY: Clear to auscultation bilaterally. GASTROINTESTINAL: Abdomen nondistended, soft, non-tender. No hepato- splenomegaly, or palpable masses. EXTREMITIES: No edema. NEUROLOGICAL: Alert, well oriented, speech is intact, normal bilateral upper and lower extremity strength SKIN: warm, dry, no rash Objective Labs Result Diagrams: 08/12/17 10:10 08/12/17 10:10 Labs: EKG: Ventricular paced rhythm Head CT: 1. 5.2 cm area of right posterior temporal parietal low attenuation in the cortex and subcortical white matter without mass effect consistent with chronic encephalomalacia from prior stroke rather than subacute stroke. MR scanning may be warranted for more accurate assessment. 2. 8 x 9 mm presumed meningioma without adjacent mass effect or edema at the left paramedian posterior left cerebrum, occipital parietal junction, as an incidental finding. This area could be assessed with MR scanning with contrast to establish a definitive diagnosis. 3. If possible it would be valuable to obtain old head CT or MR scanning if available for comparison. CT angio chest abdomen pelvis: 1. No evidence for aortic dissection or aneurysm. 2. High-grade stenosis of SMA. 3. Left lower lobe pneumonia. 4. Mild bilateral groundglass infiltrates may be secondary to superimposed pulmonary edema. Recommend clinical correlation. 4. Distended distal esophagus may be secondary gastroesophageal reflux. 5. Cholelithiasis. Laboratory Results - last 24 hr 08/12/17 08/12/17 08/12/17 10:10 10:10 10:10 WBC 12.9 H RBC 5.15 Hgb 14.9 Hct 46.2 H MCV 89.7 MCH 28.9 MCHC 32.2 RDW 14.2 Plt Count 214 Neut % (Auto) 92.5 H Lymph % (Auto) 3.8 L Tift % (Auto) 3.2 Eos % (Auto) 0.0 L Baso % (Auto) 0.5 Neut # (Auto) 79530 H PT INR APTT ABG pH ABG pCO2 ABG pO2 ABG HCO3 ABG Total CO2 ABG O2 Saturation ABG Base Excess FiO2 Sodium 131 L Potassium 6.0 H Chloride 95 L Carbon Dioxide 21 L BUN 42 H Creatinine 1.60 H Estimated GFR 32.2 L BUN/Creatinine Ratio 26.3 H Glucose 643 H* Lactate 4.1 H Calcium 8.6 Total Bilirubin 0.6 AST 34 ALT 25 Alkaline Phosphatase 201 H Total Creatine Kinase 133 CK-MB (CK-2) 4.16 H CK-MB (CK-2) Rel Index 3.1 Troponin I 0.068 H B-Natriuretic Peptide Total Protein 7.5 Albumin 3.5 Globulin 4.0 Albumin/Globulin Ratio 0.9 L Procalcitonin Urine Color Urine Appearance Urine pH Ur Specific [place] Urine Protein Urine Glucose (UA) Urine Ketones Urine Occult Blood Urine Nitrate Urine Bilirubin Urine Urobilinogen Ur Leukocyte Esterase Urine RBC Urine WBC Amorphous Sediment Urine Bacteria Urine Mucus Urine Yeast Ur Culture Indicated? Micro UA Comment Salicylates < 1.0 Acetaminophen < 10 L Ethyl Alcohol < 10 Ketones 08/12/17 08/12/1708/12/18 10:10 10:10 10:10 WBC RBC Hgb Hct MCV MCH MCHC RDW Plt Count Neut % (Auto) Lymph % (Auto) Tift % (Auto) Eos % (Auto) Baso % (Auto) Neut # (Auto) PT 11.4 INR 1.1 APTT 25 L ABG pH ABG pCO2 ABG pO2 ABG HCO3 ABG Total CO2 ABG O2 Saturation ABG Base Excess FiO2 Sodium Potassium Chloride Carbon Dioxide BUN Creatinine Estimated GFR BUN/Creatinine Ratio Glucose Lactate Calcium Total Bilirubin AST ALT Alkaline Phosphatase Total Creatine Kinase CK-MB (CK-2) CK-MB (CK-2) Rel Index Troponin I B-Natriuretic Peptide 1120.0 H Total Protein Albumin Globulin Albumin/Globulin Ratio Procalcitonin Urine Color Urine Appearance Urine pH Ur Specific [place] Urine Protein Urine Glucose (UA) Urine Ketones Urine Occult Blood Urine Nitrate Urine Bilirubin Urine Urobilinogen Ur Leukocyte Esterase Urine RBC Urine WBC Amorphous Sediment Urine Bacteria Urine Mucus Urine Yeast Ur Culture Indicated? Micro UA Comment Salicylates Acetaminophen Ethyl Alcohol Ketones 1.88 H 08/12/17 08/12/17 08/12/17 10:10 10:30 11:00 WBC RBC Hgb Hct MCV MCH MCHC RDW Plt Count Neut % (Auto) Lymph % (Auto) Tift % (Auto) Eos % (Auto) Baso % (Auto) Neut # (Auto) PT INR APTT ABG pH 7.32 L ABG pCO2 46.6 H ABG pO2 370 H* ABG HCO3 22 L ABG Total CO2 24 ABG O2 Saturation 100 ABG Base Excess -4.0 L FiO2 100 Sodium Potassium Chloride Carbon Dioxide BUN Creatinine Estimated GFR BUN/Creatinine Ratio Glucose Lactate Calcium Total Bilirubin AST ALT Alkaline Phosphatase Total Creatine Kinase CK-MB (CK-2) CK-MB (CK-2) Rel Index Troponin I B-Natriuretic Peptide Total Protein Albumin Globulin Albumin/Globulin Ratio Procalcitonin 0.05 Urine Color Yellow Urine Appearance Clear Urine pH 5.5 Ur Specific [place] 1.010 Urine Protein 3+ H Urine Glucose (UA) 3+ Urine Ketones Trace H Urine Occult Blood 3+ H Urine Nitrate Negative Urine Bilirubin Negative Urine Urobilinogen 0.2 Ur Leukocyte Esterase Negative Urine RBC 5-10/hpf H Urine WBC 0-1/hpf Amorphous Sediment 2+ Urine Bacteria Few (2-10) H Urine Mucus 1+ H Urine Yeast 1-5/hpf H Ur Culture Indicated? Specimen cultured Micro UA Comment Not Reportable Salicylates Acetaminophen Ethyl Alcohol Ketones Assessment & Plan Plan: Assessment/Plan Narrative: 1. Diabetic nonketotic hyperosmolar coma: Patient presented with obtundation, glucose above 600, lactic acidosis with history of possible insulin noncompliance. This seems likely cause of obtundation. Differential diagnosis includes sepsis, acute CVA, seizure, or other toxic encephalopathy. However, her WBC is only mildly elevated with normal procalcitonin and absence of fever making sepsis less likely. Head CT without acute findings but does show previous stroke as well as incidental meningioma without mass effect. She was observed to be moving all 4 extremities equally when more alert which suggests she does not have acute stroke. She does not have seizure history. Plan: Hydrate with normal saline, IV insulin drip, ICU monitoring. 2. Intubation for airway protection: Her ABG does not suggest acute respiratory failure. Titrate down on O2. Hopefully she can be extubated in the next 12-24 hours once more stable. Diet see a nurse has noted severe swollen tongue from where she might have bit her tongue and this may complicate extubation if blocking her airway. 3. Volume depletion, acute kidney injury: She has lactic acidosis, hemoconcentrated, elevated BUN to creatinine ratio and significant drops in blood pressure after intubation all suggestive of severe volume depletion likely secondary to hyperglycemia. Current creatinine 1.6 versus baseline creatinine 1.3. BNP greater than 1000 but clinically she appears dry and not in acute heart failure. Plan: Normal saline x3 L bolus then 150 cc/hour. 4. Hyperkalemia: Likely acute due to hyperglycemia and renal failure. She received IV fluids, insulin, calcium gluconate. Recheck serum potassium ordered. 5. Possible aspiration or other bacterial pneumonia: There is suggestion of left lower lobe consolidation on CT. However procalcitonin is less than 0.05 and WBC only mildly elevated. She is afebrile. She was found with vomitus in mouth and may have aspirated although she has not had any significant secretions from the ET tube. However, she should be treated for bacterial pneumonia until she can be more definitively ruled out. Blood cultures done in ED and urine microscopic not suggestive of UTI. Plan: Levaquin 750 mg IV daily. 6. Atrial fibrillation, ventricular pacemaker: She is in ventricular paced rhythm. She does not have known coronary artery disease. She is supposed to be on Eliquis anticoagulation, rate control and other blood pressure lowering drugs but ran out and has not been taking for probable the past couple of months. 7. DVT prophylaxis: Low-dose Lovenox 8. Meningioma noted on head CT: This appears incidental and not causing any mass effect. A can be followed up on as outpatient. 9. Disposition: Admitted to ICU. Total time of critical care management 1.5 hr during course of admitting patient and subsequent encounters during course of day.
[2017-08-12 14:03] LABS: HEMOLYSIS 49 (0-50); Magnesium 1.6 mg/dL (1.6-2.3); Potassium 4.3 mmol/L (3.4-5.1)
[2017-08-12 14:21] LABS: Reflexed Lactate in 2 Hours Y
[2017-08-12 14:54] LABS: Glucose 540 mg/dL (80-110)
--- NOTE | 2017-08-12 15:48 | PC.NURSE ---
Admission Note: Pt admitted to ICU from ER intubated, sedated on propofol gtts at 15 mcg/kg/min. Pt unresponsive except to noxious stimulus. Both arms moving with what appears to be decerebrate posturing, less noticeable as shift goes on. PERRlA, 3-4 mm. Moving feet spontaneously, not following commands or opening eyes. Periorbital edema with some petichiae noted. Tongue swollen and reddened, possibly traumatic. MD notified. Pt received with 100% v-pacing, HR 65. BP mainly 120-150s/50s-60s. Pt's son at bedside, unable to take full history d/t pt being sedated and unresponsive. Will continue to monitor, notify MD with changes.
[2017-08-12] MEDS: INSULIN REGULAR, HUMAN 100 UNIT in SODIUM CHLORIDE 0.9% 100 ML 6 ML IV (15:56)
[2017-08-12 16:30] LABS: Lactate 2HR (Lactic Acid Rflx) 3.3 mmol/L (0.7-2.1)
[2017-08-12] MEDS: INSULIN GLARGINE 100 UNIT/ML 3ML PEN 60 UNIT SUBCUT (16:31)
--- NOTE | 2017-08-12 17:51 | PC.NURSE ---
1530 - Insulin gtt intiated at 6 units/hr, per md order. 1545 - Titrating propofol to off. Assessment of readiness to extubate. Propofol at 7mcg/kg/min. 1600 - Propofol at 5 mcg/kg/min. 1610 - Propofol to off. MD and RT at bedside. Initated C-pap trial. intermittent periods of apnea when not stimulated. 1640 - Pt wakefulness not at a level for safe extubation. Per Dr. Storey, resume propofol for sedation pt to remain intubated overnight. Pt son at bedside. Educated to treatment plan. Asking approriate question. Propofol at 10mcg/kg/min. Insulin gtt at 6 units/hr. NS at 150cc/hr. Vent settings per RT. Sats 99%.
[2017-08-13] VITALS (33 sets, daily range): BP systolic 90–203; BP diastolic 58–103; PULSE 28–84; RESP 13–24; TEMP 36.4–37.4; O2SAT 97–100
--- NOTE | 2017-08-13 01:57 | PC.NURSE ---
Addendum entered by Maria Esther Shahid R.N. 08/13/17 05:15: Patient had been calmly sedated with propofol gtt 5-10mcg/min until am lab draw, became very agitated, reaching for ETT, eyes open but not making eye contact, tracking, or following commands, propofol increased to 20mcg/min temporarily until patient relaxed, then titrated back to 10mcg/min, current BP 108/63(83) Thick white secretions sx from ETT. CBGs have been 81-102 since 0200, insulin gtt has been off. Original Note: Received patient sedated on ventilator. SpO2 99% on FIO2 30% TV 450 PEEP 5, riding RR setting of 16. Propofol gtt at 10mcg/min, no movement to extremeties, grimaces or bites down during turning and oral care only. Pupils 4mm and sluggish. Titrating insulin infusion to keep BG to goal of 100-150-see titration flow sheet. V-paced, generalized edema, hands are puffy, elevated on pillows, monitoring hypotension closely, titrating propofol for RASS and hypotension.
[2017-08-13] MEDS: SODIUM CHLORIDE 0.9% 1,000 ML 150 ML IV (03:15)
[2017-08-13 05:36] LABS: Add Manual Diff / Slide Review NO; Basophils Percent Auto 0.4 % (0-2); Hematocrit 41.4 % (36-46); Hemoglobin 13.5 g/dL (12.0-16.0); Lymphocytes Percent Auto 19.2 % (25-40); Mean Corpuscular HGB Conc 32.6 % (30-36); Mean Corpuscular Hemoglobin 28.7 PG (26-34); Monocytes Percent Auto 7.2 % (3-14); Neutrophils Absolute Auto 14000 /uL (3000-5900); Neutrophils Percent Auto 73.2 % (50-75); Platelet Count 187 X10^3/uL (150-400); Red Cell Distribution Width 14.2 % (11.6-14.8); White Blood Cell Count 19.2 X10^3/uL (4.5-11.0)
[2017-08-13 05:38] LABS: BUN Creatinine Ratio 22.2 (6-22); Blood Urea Nitrogen 40 mg/dL (7-17); Calcium 8.3 mg/dL (8.4-10.2); Carbon Dioxide 22 mmol/L (22-32); Chloride 110 mmol/L (98-107); Estimated Glomerular Filt Rate 28.1 mL/min (>60); Glucose 80 mg/dL (80-110); HEMOLYSIS 17 (0-50); Potassium 4.2 mmol/L (3.4-5.1); Sodium 140 mmol/L (137-145)
[2017-08-13] MEDS: DEXTROSE 5%-0.45% NS 1,000 ML 150 ML IV ×3 (06:36→22:08)
[2017-08-13] MEDS: ENOXAPARIN 40 MG/0.4 ML SYRINGE SUBCUT (08:40)
[2017-08-13] MEDS: INSULIN GLARGINE 100 UNIT/ML 3ML PEN 60 UNIT SUBCUT (08:40)
--- NOTE | 2017-08-13 10:50 | PC.NURSE ---
pt able to be extubated this am to 2l nc o2 with spo2 98-100% will decrease o2 as indicated, lungs remain coarse and pt remains weak but clearing mentation. Insuling gtt off.
--- NOTE | 2017-08-13 11:08 | CM.DANOTE ---
Discharge Planning/Care Management CM Discharge Assessment Start: 08/13/17 11:05 Freq: Status: Active Protocol: Document 08/13/17 11:05 ITV (Rec: 08/13/17 11:08 [email or web address] [email or web address]) Discharge Planning Assessment History Provided By Medical Record Prior Living Arrangements House Household Members family Comment Per chief of service notes: pt lives with family. Family was present when pt admitted. Currently not available and pt now medically stable for discussion with this DCPlanner . Review Status In Process Next Review Type Continued Stay Review
--- NOTE | 2017-08-13 11:09 | CM.DANOTE ---
Discharge Planning/Care Management DCP: case received, EMR reviewed and looked in on pt (in bed in ICU). Pt with eyes closed and not appropriate for a discussion re d/c process at this time. White board in room in updated re DCP contact information. Pt is a 67 year old female who admitted yesterday from the ER to ICU on ventilator support. Hospitalist team following. Payer: [facility] Medicare B (but review of [facility] notes indicates Medicare is inactive.) Will try to get some clarity re this. PCP: listed as Christiano Orr Full dx and POC are in process but Dr. Storey does state pt admitted in a diabetic non-ketotic coma and this may have been in part from losing some insurance coverage. P: pt has just been extubated today. DCP team will be meeting with pt as able and reaching out to family for further information. Anticipate PT/OT will be involved when appropriate. CM Discharge Assessment Start: 08/13/17 11:05 Freq: Status: Active Protocol: Document 08/13/17 11:05 ITV (Rec: 08/13/17 11:08 [email or web address] [email or web address]) Discharge Planning Assessment History Provided By Medical Record Prior Living Arrangements House Household Members family Comment Per management sme notes: pt lives with family. Family was present when pt admitted. Currently not available and pt now medically stable for discussion with this DCPlanner . Review Status In Process Next Review Type Continued Stay Review Document 08/13/17 11:09 ITV (Rec: 08/13/17 11:09 ITV [email or web address]) Discharge Planning Assessment History Provided By Medical Record Prior Living Arrangements House Household Members family Comment Per management sme notes: pt lives with family. Family was present when pt admitted. Currently not available and pt now medically stable for discussion with this DCPlanner . Review Status In Process Next Review Type Continued Stay Review Document 08/13/17 11:09 ITV (Rec: 08/13/17 11:09 ITV [email or web address]) Discharge Planning Assessment History Provided By Medical Record Prior Living Arrangements House Household Members family Comment Per management sme notes: pt lives with family. Family was present when pt admitted. Currently not available and pt now medically stable for discussion with this DCPlanner . Review Status In Process Next Review Type Continued Stay Review
[2017-08-13 12:17] LABS: Procalcitonin 0.23 ng/mL (<0.5)
--- NOTE | 2017-08-13 12:24 | P.PN_ITS ---
Subjective Date Patient Seen: 08/13/17 Interval history: Patient is seen in ICU. She did well off sedation with 30 min of CPAP trial and successfully extubated around 10:00 a.m. this morning. Blood sugar this morning in low 100 range and insulin drip discontinued. Exam Vital Signs (past 8 hours): - 08/13/17 05:00 08/13/17 06:05 08/13/17 07:00 Temperature 98.3 F Pulse Rate 65 65 65 Respiratory Rate 16 16 16 Blood Pressure 108/68 102/71 171/69 H Pulse Oximetry 99 100 100 08/13/17 07:49 08/13/17 08:00 08/13/17 08:58 Temperature 98.3 F 98.3 F Pulse Rate 65 65 65 Respiratory Rate 16 16 16 Blood Pressure 93/58 L 93/58 L 90/59 L Pulse Oximetry 97 98 97 08/13/17 09:36 08/13/17 09:58 08/13/17 10:44 Temperature Pulse Rate 65 65 Respiratory Rate 13 18 Blood Pressure 113/84 H Pulse Oximetry 100 100 100 08/13/17 11:19 Temperature 99.2 F Pulse Rate 65 Respiratory Rate 24 Blood Pressure 123/76 H Pulse Oximetry 100 Fraction of Inspired Oxygen 0.30 Oxygen Delivery Method Mechanical Ventilation Oxygen Flow Rate 2 Narrative Exam Narrative: GENERAL: Patient just extubated HEENT: There is bilateral periorbital mild swelling and bruising. Patient has swollen tongue with bite wounds. CHEST: Clear to auscultation bilaterally. CARDIAC: Regular rate and rhythm. ABDOMEN: Nondistended, soft, nontender EXTREMITIES: no pretibial edema. NEUROLOGICAL: Lethargic, non agitated, following simple commands, no focal weakness SKIN: Warm, dry, no petechiae, no rash Objective Labs Result Diagrams: 08/13/17 04:45 08/13/17 04:45 Labs: Laboratory Results - last 24 hr 08/12/17 08/12/17 08/12/17 11:00 12:40 13:30 WBC RBC Hgb Hct MCV MCH MCHC RDW Plt Count Neut % (Auto) Lymph % (Auto) [place] % (Auto) Eos % (Auto) Baso % (Auto) Neut # (Auto) ABG pH 7.32 L ABG pCO2 46.6 H ABG pO2 370 H* ABG HCO3 22 L ABG Total CO2 24 ABG O2 Saturation 100 ABG Base Excess -4.0 L FiO2 100 Sodium Potassium 4.3 D Chloride Carbon Dioxide BUN Creatinine Estimated GFR BUN/Creatinine Ratio Glucose Lactate Calcium Magnesium 1.6 Procalcitonin Nasal Screen MRSA (PCR) Negative for mrsa 08/12/17 08/12/17 08/13/17 13:31 16:10 04:45 WBC 19.2 H RBC 4.70 Hgb 13.5 Hct 41.4 MCV 88.0 MCH 28.7 MCHC 32.6 RDW 14.2 Plt Count 187 Neut % (Auto) 73.2 Lymph % (Auto) 19.2 L [place] % (Auto) 7.2 Eos % (Auto) 0.0 L Baso % (Auto) 0.4 Neut # (Auto) 15742 H ABG pH ABG pCO2 ABG pO2 ABG HCO3 ABG Total CO2 ABG O2 Saturation ABG Base Excess FiO2 Sodium Potassium Chloride Carbon Dioxide BUN Creatinine Estimated GFR BUN/Creatinine Ratio Glucose 540 H* Lactate 3.3 H Calcium Magnesium Procalcitonin Nasal Screen MRSA (PCR) 08/13/17 08/13/17 04:45 04:45 WBC RBC Hgb Hct MCV MCH MCHC RDW Plt Count Neut % (Auto) Lymph % (Auto) [place] % (Auto) Eos % (Auto) Baso % (Auto) Neut # (Auto) ABG pH ABG pCO2 ABG pO2 ABG HCO3 ABG Total CO2 ABG O2 Saturation ABG Base Excess FiO2 Sodium 140 Potassium 4.2 Chloride 110 H Carbon Dioxide 22 BUN 40 H Creatinine 1.80 H Estimated GFR 28.1 L BUN/Creatinine Ratio 22.2 H Glucose 80 D Lactate Calcium 8.3 L Magnesium Procalcitonin 0.23 Nasal Screen MRSA (PCR) Assessment & Plan Plan: Assessment/Plan Narrative: 1. Diabetic nonketotic hyperosmolar coma: Patient was affect treated with IV fluids, insulin drip and given her usual dose of Lantus with blood sugars this morning close to normal. She presented obtunded, glucose above 600, lactic acidosis with history of possible insulin noncompliance. This seems likely cause of obtundation. Differential diagnosis includes sepsis, acute CVA, seizure, or other toxic encephalopathy. Head CT without acute findings but does show previous stroke as well as incidental meningioma without mass effect. There is no findings on exam to suggest acute stroke. She does not have seizure history. Plan: Continue IV hydration, Lantus 60 units each morning, NovoLog sliding scale. Obtain further history from patient post extubation regarding insulin compliance. 2. Intubation for airway protection: Extubated a.m. of 08/13/2017. Oxygen saturations have been good post extubation. 3. Volume depletion, acute kidney injury: Initial labs highly suggestive of severe volume depletion with lactic acidosis, hemoconcentrated, elevated BUN to creatinine ratio in setting of severe hyperglycemia. Urine output a little sluggish this a.m.. Creatinine 1.8, admission 1.6 versus baseline creatinine 1.3. BNP greater than 1000 but clinically she appears dry and not in acute heart failure. Plan: Continue IV hydration, currently on D5 half normal saline at 150 cc/hour. 4. Hyperkalemia: Corrected with potassium back to normal. 5. Possible aspiration or other bacterial pneumonia: Diagnosis uncertain. Patient found at home with vomitus on self and may have aspirated. There is suggestion of left lower lobe consolidation on CT. WBC increased to 19,000 this morning although no left shift. Initial procalcitonin less than 0.05 and repeat procalcitonin 0.2 still low. Blood cultures remain negative and urine microscopic not suggestive of UTI. Plan: Continue Levaquin 750 mg IV daily but recommend early discontinuation of antibiotic if white blood cell count is going back to normal and patient remains afebrile. 6. Atrial fibrillation, ventricular pacemaker: She is in ventricular paced rhythm. She does not have known coronary artery disease. She is supposed to be on Eliquis anticoagulation, rate control and other blood pressure lowering drugs but apparently ran out and has not been taking for probable the past couple of months. Currently BP and heart rate normal range but I will start her back on Eliquis. 7. DVT prophylaxis: Stopped Lovenox and put patient back on her Eliquis. 8. Meningioma noted on head CT: This appears incidental and not causing any mass effect. It can be followed up on as outpatient with repeat imaging in 6- 12 months or specialist referral. 9. Disposition: Continue ICU management. Total time of critical care management 1 hr during course of admitting patient and subsequent encounters during course of day.
--- NOTE | 2017-08-13 16:14 | DI.CT.S_ITS ---
PROCEDURE: CT HEAD/BRAIN WO CON INDICATIONS: hypertensive, hx of cva TECHNIQUE: Noncontrast 4.5 mm thick angled axial sections acquired from the foramen magnum to the vertex, with coronal and sagittal reformats. For radiation dose reduction, the following was used: automated exposure control, adjustment of mA and/or kV according to patient size. COMPARISON: [facility], CT, CT HEAD/BRAIN WO CON, 08/12/2017, 9:33. FINDINGS: Image quality: Excellent. CSF spaces: Basal cisterns are patent. No extra-axial fluid collections. There is mild cerebral volume loss, with resultant ventricular and sulcal prominence. Brain: No intracranial hemorrhage or midline shift. Bilateral areas of encephalomalacia are redemonstrated within the right parietal lobe extending to the posterior temporal lobe and within the left frontal lobe. Findings are consistent with sequela of prior infarcts. There are subcortical, periventricular and deep white matter hypodensities consistent with pino-nj-sgrvyucs chronic small vessel ischemic changes. Focal hypodensity is also demonstrated within the right caudate nucleus compatible with a lacunar infarct of indeterminate acuity. There is a calcified extra-axial mass redemonstrated along the posterior left parietal lobe consistent with a meningioma. This measures up to approximately 1.0 x 1.0 cm in transverse dimension. There is intracranial internal carotid artery atherosclerosis. Skull and face: Calvarium and visualized facial bones are intact, without suspicious lesions. Sinuses: Visualized sinuses demonstrate moderate mucosal thickening bilaterally in the maxillary sinuses with sinus retention cysts or mucosal polyps inferiorly. There is also mild mucosal thickening within the ethmoid sinuses. Mastoid air cells are clear. IMPRESSION: 1. No acute intracranial hemorrhage. 2. Bilateral areas of encephalomalacia redemonstrated consistent with prior infarcts. 3. Small lacunar infarct in the right caudate of indeterminate acuity. 4. Small calcified extra-axial mass redemonstrated along the posterior left parietal lobe compatible with a meningioma. 5. Xxec-mh-[id number] chronic white matter some of his ischemic changes and mild cerebral volume loss. Dictated by: Lex Dodson M.D. on 08/13/2017 at 17:45 Approved by: Lex Dodson M.D. on 08/13/2017 at 17:50
--- NOTE | 2017-08-13 16:17 | PC.NURSE ---
Patient awake, head turned awake to the left/ saying slurred words/ shaking head yes to all questions. SHook head yes to question are you cold because hands are cool. Warm blankets applied. Bp elevated to 203/103 after repositioned. Had been in the 180/90s since 1400- Dr. Storey notified about BP, and patient now awake, but not following specific commands. Orders for Labetolol and head CT scan.
[2017-08-13] MEDS: LABETALOL 20 MG/4 ML SYRINGE IV ×2 (16:26→22:06)
--- NOTE | 2017-08-13 20:08 | PC.NURSE ---
Son in to visit- family says she had an episode last year in April similar- did not know family- not speaking- thought it was due to her taking medication incorrectly. Patient unable to say son's name or her own at this time. Keeps repeating very cold- family says she is from [facility] and [place]
--- NOTE | 2017-08-13 21:45 | PC.NURSE ---
Patient to head ct scan @ 1650 per monitored bed with RN- results unchanged and called to dr. santos.
[2017-08-13 22:19] LABS: PCO2 ABG 43.6 mmHg (35-45)
[2017-08-14] VITALS (10 sets, daily range): BP systolic 105–181; BP diastolic 49–97; PULSE 65–72; RESP 18–24; TEMP 35.9–36.9; O2SAT 95–99
[2017-08-14] MEDS: DEXTROSE 5%-0.45% NS 1,000 ML 150 ML IV ×3 (05:03→19:52)
[2017-08-14 05:18] LABS: BUN Creatinine Ratio 18.7 (6-22); Blood Urea Nitrogen 28 mg/dL (7-17); Calcium 7.8 mg/dL (8.4-10.2); Carbon Dioxide 20 mmol/L (22-32); Chloride 109 mmol/L (98-107); Estimated Glomerular Filt Rate 34.6 mL/min (>60); Glucose 82 mg/dL (80-110); HEMOLYSIS < 15 (0-50); Potassium 3.3 mmol/L (3.4-5.1); Sodium 140 mmol/L (137-145)
[2017-08-14 05:29] LABS: Add Manual Diff / Slide Review NO; Basophils Percent Auto 0.7 % (0-2); Eosinophils Percent Auto 1.3 % (2-4); Hematocrit 38.1 % (36-46); Hemoglobin 12.7 g/dL (12.0-16.0); Mean Corpuscular HGB Conc 33.5 % (30-36); Mean Corpuscular Hemoglobin 29.3 PG (26-34); Mean Corpuscular Volume 87.6 fL (80-100); Monocytes Percent Auto 7.1 % (3-14); Neutrophils Absolute Auto 8000 /uL (3000-5900); Neutrophils Percent Auto 64.9 % (50-75); Platelet Count 161 X10^3/uL (150-400); Red Blood Cell Count 4.35 X10^6/uL (4.0-5.2); Red Cell Distribution Width 14.3 % (11.6-14.8); White Blood Cell Count 12.3 X10^3/uL (4.5-11.0)
[2017-08-14] MEDS: APIXABAN 5 MG TABLET PO ×2 (10:09→21:19)
[2017-08-14] MEDS: INSULIN GLARGINE 100 UNIT/ML 3ML PEN 60 UNIT SUBCUT (10:09)
[2017-08-14] MEDS: levoFLOXacin 750 MG/150 ML PIGGYBACK 100 MG IV (11:38)
[2017-08-14] MEDS: POTASSIUM CHLORIDE 20 MEQ TAB 40 MEQ PO (11:40)
--- NOTE | 2017-08-14 11:54 | PM.PN.1 ---
Subjective Date Patient Seen: 08/14/17 Interval history: Patient with some improvement in mentation. Yesterday she was not responding to questions. This morning she is talking but perseverating a lot with repeating the same thing over in and over with limited attention span to answer more than 1 question. She states she was using her Apidra insulin with meals but cannot tell me if she was using her once daily Lantus as well. Exam Vital Signs (past 8 hours): - 08/14/17 04:00 08/14/17 04:27 08/14/17 06:20 Temperature 98.3 F Pulse Rate 65 Respiratory Rate 18 Blood Pressure 140/70 H Pulse Oximetry 96 97 95 08/14/17 07:30 08/14/17 09:09 Temperature 98 F Pulse Rate 65 Respiratory Rate 24 Blood Pressure 160/97 H Pulse Oximetry 96 98 Fraction of Inspired Oxygen 0.30 Oxygen Delivery Method Room Air Oxygen Flow Rate 2 Narrative Exam Narrative: GENERAL: Patient is alert, not agitated, HEENT: There is mild bilateral periorbital bruising, the tongue swelling is much better CHEST: Clear to auscultation bilaterally. CARDIAC: Regular paced rhythm ABDOMEN: Nondistended, soft, nontender EXTREMITIES: no pretibial edema. NEUROLOGICAL: Alert, oriented to person and place, still confused, with tendency to perseverate, and unable to have full conversation SKIN: Warm, dry, no petechiae, no rash Objective Labs Result Diagrams: 08/14/17 04:52 08/14/17 04:52 Labs: Laboratory Results - last 24 hr 08/12/17 08/13/17 08/14/17 11:00 04:45 04:52 WBC 12.3 H RBC 4.35 Hgb 12.7 Hct 38.1 MCV 87.6 MCH 29.3 MCHC 33.5 RDW 14.3 Plt Count 161 Neut % (Auto) 64.9 Lymph % (Auto) 26.0 [place] % (Auto) 7.1 Eos % (Auto) 1.3 L Baso % (Auto) 0.7 Neut # (Auto) 8000 H ABG pCO2 43.6 Sodium Potassium Chloride Carbon Dioxide BUN Creatinine Estimated GFR BUN/Creatinine Ratio Glucose Calcium Procalcitonin 0.23 08/14/17 04:52 WBC RBC Hgb Hct MCV MCH MCHC RDW Plt Count Neut % (Auto) Lymph % (Auto) [place] % (Auto) Eos % (Auto) Baso % (Auto) Neut # (Auto) ABG pCO2 Sodium 140 Potassium 3.3 L Chloride 109 H Carbon Dioxide 20 L BUN 28 H Creatinine 1.50 H Estimated GFR 34.6 L BUN/Creatinine Ratio 18.7 Glucose 82 Calcium 7.8 L Procalcitonin Assessment & Plan Plan: Assessment/Plan Narrative: 1. Diabetic nonketotic hyperosmolar coma: Patient was treated with IV fluids, insulin drip and given her usual dose of Lantus with blood sugars normalized since a.m. August 13. She presented obtunded, glucose above 600, lactic acidosis > 4 with history of possible insulin noncompliance. This seems likely cause of obtundation. Differential diagnosis includes acute CVA, seizure, seizure, or other toxic encephalopathy. Head CT x 2 without obvious acute findings but does show sequelae of previous strokes, chronic small vessel disease, as well as incidental meningioma without mass effect. She does not have seizure history. Plan: Continue IV hydration. Glucose running a little low, decrease Lantus to 50 units each morning. Continue NovoLog medium dose sliding scale. She is supposed to be on Lantus and Apidra as outpatient. 2. Intubation for airway protection: Extubated a.m. of 08/13/2017. Oxygen saturations have been good post extubation and patient without cough. 3. Volume depletion, acute kidney injury: Initial labs highly suggestive of severe volume depletion with lactic acidosis, hemoconcentrated, elevated BUN to creatinine ratio in setting of severe hyperglycemia. Urine output improving with continue hydration. Creatinine 1.5, peak creatinine 1.8, admission 1.6 versus baseline creatinine 1.3. BNP greater than 1000 but clinically she appears dry and not in acute heart failure. Plan: Continue IV hydration until patient able to take adequate fluids by mouth, currently on D5 half normal saline at 150 cc/hour. 4. Hyperkalemia: Correcting with oral potassium. 5. Possible aspiration or other bacterial pneumonia: Diagnosis uncertain. Patient has been afebrile. She was found at home with vomitus on self and may have aspirated. There is suggestion of left lower lobe consolidation on CT. WBC was up to 19,000 but without left shift and now improved. Initial procalcitonin less than 0.05 and repeat procalcitonin 0.2 still low. Blood cultures remain negative and urine microscopic not suggestive of UTI. Plan: Continue Levaquin 750 mg IV daily through 08/16/2017 to complete 5 day course. Antibiotic stop order was entered. 6. Atrial fibrillation, ventricular pacemaker: She is in ventricular paced rhythm. She does not have known coronary artery disease. She is supposed to be on Eliquis anticoagulation, rate control and other blood pressure lowering drugs but apparently ran out and has not been taking for probable the past couple of months. Resumed Eliquis. 7. Hypertension: BP running moderately to severely elevated since improved hydration. Using labetalol IV as needed. Restarted patient's routine medications now that she is able to take pills by mouth. 8. DVT prophylaxis: Stopped Lovenox and put patient back on her Eliquis. 9. Meningioma noted on head CT: This appears incidental and not causing any mass effect. It can be followed up on as outpatient with repeat imaging in 6-12 months or specialist referral. 10. Fluids/nutrition/mobility: Continue IV fluids, clear liquid diet. Speech therapy to assess swallowing. Physical therapy consult to mobilize out of bed. 11. Disposition: Inpatient floor care.
--- NOTE | 2017-08-14 12:45 | PC.NURSE ---
PT IMPROVING WITH SPEECH- REPEATS HERSELF FREQUENTLY AND DOES NOT FOLLOW COMMANDS BY STAFF- TAKING FEW BITES OF APPLESAUCE WITH CRUSHED MEDS OTHERWISE AWAITING FORMAL SPPECH EVAL ( 08-15-17) -CHANGED TO FLOOR CARE STATUS AND WILL INITIATE PT WELL
[2017-08-14] MEDS: CARVEDILOL 25 MG TABLET PO ×2 (13:32→21:20)
[2017-08-14] MEDS: LOSARTAN 50 MG TABLET PO (13:32)
--- NOTE | 2017-08-14 14:00 | PT.IIE ---
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 Mobility and Gait indep. ambulator without device. Able to do stairs indoors with rails. Activities of Daily Living and IADL's Indep. ADLs including showering Social History Household Members family Living Arrangements House Number of Floors (Floors) Two Floors Number of Stairs To Enter/Railing? 0 to enter Home Environment Standard Height Toilet Tub/Shower Home Equipment Four Wheel Walker Additional Social History Comment Son, Xavier, recently bought grab-bars to install in . Pt lives downstairs with no step entry, all needs on main level. There are 5 steps to get to the rest of the living areas, but she does not need to manage that to d/c home. M2 PT-IP Current Condition Start: 08/14/17 14:48 Freq: Status: Active Protocol: Document 08/14/17 14:00 [facility] (Rec: 08/14/17 15:14 [facility] [id number]) Physical Therapy Current Condition Current Condition Evaluation Date 08/14/17 Treatment Diagnosis weakness, diabetic nonketotic hyperosmolar coma, dec. activity tolerance Onset Date 08/12/17 M3 PT-IP Subjective Start: 08/14/17 14:48 Freq: Status: Active Protocol: Document 08/14/17 14:00 [facility] (Rec: 08/14/17 15:14 [facility] [id number]) Subjective Physical Therapy Visit Type Type Initial Evaluation Visit Start Time 13:35 Visit Stop Time 14:00 Total Visit Minutes 25 Notes Pt mostly non-verbal at time of evaluation. She is perseverating with motion when attempting to test coordination, MMT, etc. Number of DRIER AND PULVERIZER TENDER Visits 0 Physical Therapy Visit Comments Patient Comments Pt stated yes to some answers but inconsistent return with conversation. M4 PT-IP Mobility and Gait Start: 08/14/17 14:48 Freq: Status: Active Protocol: Document 08/14/17 14:00 [facility] (Rec: 08/14/17 15:14 [facility] [id number]) PT-Bed Mobility Assessment Supine to Sit Supine to Sit Total Assistance 1 Person Assistance Sit to Supine Sit to Supine Maximum Assistance 2 Person Assistance Scooting Scooting to Edge of Bed Maximum Assistance PT-Transfer Assessment Sit to and From Stand Sit to and from Stand Moderate Assistance 2 Person Assistance Use of Upper Extremities Comments Mobility Comments Not safe to transfer (not following commands). Pt stood for 1 min at EOB, standing marching x2 each LE. Gait Assessment Comments Gait Comments not able to ambulate at this time. PT-Balance Assessment Sitting Balance and Reactions Static Sitting Balance Ability Good Dynamic Sitting Balance Ability Fair Standing Balance and Reactions Static Standing Balance Ability Poor Dynamic Standing Balance Ability Poor Device Used FWW M5 PT-IP Objective Assessments Start: 08/14/17 14:48 Freq: Status: Active Protocol: Document 08/14/17 14:00 [facility] (Rec: 08/14/17 15:14 [facility] [id number]) Orientation Orientation/Cognition Level of Alertness Confusional State Safety Awareness Decreased Safety Awareness Comments unable to verbally communicate besides a few yes answers to simple questions Gross Range of Motion Upper Extremity ROM Assessment Within Functional Limits Strength Comments Strength Comments not able to be formally tested due to confusion. Able to perform SLR bilaterally and pump ankles up/down and perform LAQ sitting on EOB. Coordination Assessment Gross Coordination Gross Coordination Impaired Assessment Coordination Comments Pt able to perform R index to nose with eyes open, cannot close eyes on command. Not willing/able to do finger to nose without assistance. Pt continued to perform R index to nose continuously while standing. Sensation Assessment Comments Sensation Comments unable to test or answer. M6 PT-IP Treatment Start: 08/14/17 14:48 Freq: Status: Active Protocol: Document 08/14/17 14:00 [facility] (Rec: 08/14/17 15:14 [facility] [id number]) Physical Therapy Treatment Exercises Exercises Ankle Pumps Shoulder Flexion M7 PT-IP Assessment and Plan Start: 08/14/17 14:48 Freq: Status: Active Protocol: Document 08/14/17 14:00 [facility] (Rec: 08/14/17 15:14 [facility] [id number]) PT Summary Assessment and Plan Potential Rehabilitation Potential Fair Status of Condition at Evaluation Unstable Summary Impairments Strength Balance Coordination Cognition Bed Mobility Transfers Gait Activity Tolerance Assessment Summary Pt able to participate with physical therapy and stand at bedside with 2 assist. Pt's most limiting factor appears to be her confusion. She perseverates motion which increases her risk for falls, impairs safety, and makes it difficult to mobilize beyond standing and 2 standing marches with 2 assistance. Pt' s son was helpful via phone to provide living situation and PLOF, and states he would like her to come home and they can have 24/7 assistance. He also stated that she had an episode like this in the past and was taken to [facility], cleared up in 2-3 days and discharged home. If pt continues to improve medically and becomes more cognitively aware, 24/7 assistance at home is possible with supportive family. At this time, the recommendation would be for SNF rehabilitation due to high skilled need for mobility and care. We will continue to follow. Goals Bed Mobility Goal Contact Guard Assistance Transfer Goal Contact Guard Assistance Front Wheeled Walker Gait Goal Contact Guard Assistance Front Wheel Walker Gait Distance 50 Days to Meet Goals 6 Frequency of Treatment Frequency Of Treatment Twice a Day Treatment Plan Physical Therapy Treatment Plan Bed Mobility Training Transfer Training Gait Training Therapeutic Exercise Balance Retraining Discharge Planning Neuromuscular Re-ed Coordination Retraining Recommendations To Nursing Amount of Assist Needed PT/OT Assist Only Discharge Recommendations PT Discharge Recommendations Home with 24/7 Assist Home Health SNF Rehab Other Discharge Recommendations SNF vs. home with 24/7 and HH- depends on medical and cognitive condition Equipment Needed for Home Before tub transfer bench, FWW Discharge
--- NOTE | 2017-08-14 14:01 | CM.DPC ---
DCP: continued: Met briefly with pt as planned after discussion with FLORENCIO Vazquez Introduced self and role. Pt now showing s/s neurological deficits per care team members. Full dx and POC remain in process. PT [facility] will see pt this afternoon. OT order is obtained. FLORENCIO Hernandez notes that pt's son Xavier, with whom she lives, is a helpful advocate. P: CM/DCP team to reach out to Xavier and follow closely for d/c issues and options as these become clearer. Pt remains in ICU setting at this time but as floor care status. Insurance issues need to be clarified, see notes of 08/13.
[2017-08-14] MEDS: INSULIN ASPART 100 UNIT/ML INSULN PEN SUBCUT (22:10)
--- NOTE | 2017-08-14 22:49 | PC.NURSE ---
Patient more alert and talkative than yesterday. Asking to go to bathroom several times- explained too weak to get up out of bed today- assisted onto bedpan 4 times- passing flatus but no stool. tolerated soft pudding and water without any problems. Denied pain- unable to state where/why in the hospital- reoriented to events and plan with each check. Face coloring becomes very florid and red when head of bed lowered and turned to side. Kept head of bed elevated.
[2017-08-15] VITALS (8 sets, daily range): BP systolic 129–144; BP diastolic 82–97; PULSE 65–66; RESP 16–21; TEMP 35.8–36.9; O2SAT 94–100; BMI 44.9
[2017-08-15] MEDS: DEXTROSE 5%-0.45% NS 1,000 ML 150 ML IV (02:33)
[2017-08-15 05:36] LABS: Add Manual Diff / Slide Review NO; Basophils Percent Auto 0.8 % (0-2); Hematocrit 42.9 % (36-46); Hemoglobin 14.1 g/dL (12.0-16.0); Lymphocytes Percent Auto 23.3 % (25-40); Mean Corpuscular HGB Conc 32.8 % (30-36); Mean Corpuscular Hemoglobin 28.9 PG (26-34); Mean Corpuscular Volume 88.1 fL (80-100); Monocytes Percent Auto 7.2 % (3-14); Neutrophils Absolute Auto 6700 /uL (3000-5900); Neutrophils Percent Auto 66.7 % (50-75); Platelet Count 189 X10^3/uL (150-400); Red Blood Cell Count 4.87 X10^6/uL (4.0-5.2); Red Cell Distribution Width 14.6 % (11.6-14.8)
[2017-08-15 05:50] LABS: Blood Urea Nitrogen 18 mg/dL (7-17); Carbon Dioxide 24 mmol/L (22-32); Chloride 108 mmol/L (98-107); Estimated Glomerular Filt Rate 44.8 mL/min (>60); Glucose 68 mg/dL (80-110); HEMOLYSIS < 15 (0-50); Potassium 3.6 mmol/L (3.4-5.1); Sodium 139 mmol/L (137-145)
--- NOTE | 2017-08-15 09:00 | PT.IPTN ---
Current Diagnoses Type 2 diabetes mellitus with hyperosmolarity with coma (08/12/17) Physical Therapy Treatment Note M2 PT-IP Current Condition Start: 08/14/17 14:48 Freq: Status: Active Protocol: Document 08/14/17 14:00 RCC (Rec: 08/14/17 15:14 RCC [id number]) Physical Therapy Current Condition Current Condition Evaluation Date 08/14/17 Treatment Diagnosis weakness, diabetic nonketotic hyperosmolar coma, dec. 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 Patient/Caregiver Goals unable to state M4 PT-IP Mobility and Gait Start: 08/14/17 14:48 Freq: Status: Active Protocol: Document 08/15/17 08:44 RS (Rec: 08/15/17 09:00 RS [id number]) PT-Bed Mobility Assessment Supine to Sit Supine to Sit Moderate Assistance Head of Bed Elevated Bedrails Scooting Scooting to Edge of Bed Moderate Assistance PT-Transfer Assessment Sit to and From Stand Sit to and from Stand Minimal Assistance 2 Person Assistance Use of Upper Extremities Equipment Transfer Assistive Device Gait Belt Transfers Transfer Destination Chair Transfer Technique sidestepping from EOB to chair Comments Mobility Comments Pt used PT as a hand-hold to get to EOB but did not need further assistance for bed mobility. Pt needing cues for hand position for initially standing up with FWW but had great difficulty moving the RLE for stepping forward and maneuvering the FWW. Pt ended up side-stepping the entire way to the chair without the FWW with hand held assist. Gait Assessment Gait Gait Assistance Required: Moderate Assistance 1 Person Assist Distance (Feet) (feet) 5 Assistive Devices Assistive Device Gait Belt Gait Deviations General Gait Pattern Decreased Stride Length Decreased Feet Clearance Wide Based Gait Factors Limiting Gait Function Factors Limiting Gait Function Decreased Activity Tolerance Difficulty Following Directions Poor Balance Poor Safety Awareness Comments Gait Comments walked about 5 feet without AD , with gait belt, PT in front holding onto gait belt, pt's hands on PT's forearms, close chair follow behind the patient. PT-Balance Assessment Sitting Balance and Reactions Static Sitting Balance Ability Good Dynamic Sitting Balance Ability Fair Standing Balance and Reactions Static Standing Balance Ability Poor Dynamic Standing Balance Ability Poor Device Used none M5 PT-IP Objective Assessments Start: 08/14/17 14:48 Freq: Status: Active Protocol: Document 08/14/17 14:00 RCC (Rec: 08/14/17 15:14 [facility] [id number]) Orientation Orientation/Cognition Level of Alertness Confusional State Safety Awareness Decreased Safety Awareness Comments unable to verbally communicate besides a few yes answers to simple questions Gross Range of Motion Upper Extremity ROM Assessment Within Functional Limits Strength Comments Strength Comments not able to be formally tested due to confusion. Able to perform SLR bilaterally and pump ankles up/down and perform LAQ sitting on EOB. Coordination Assessment Gross Coordination Gross Coordination Impaired Assessment Coordination Comments Pt able to perform R index to nose with eyes open, cannot close eyes on command. Not willing/able to do finger to nose without assistance. Pt continued to perform R index to nose continuously while standing. Sensation Assessment Comments Sensation Comments unable to test or answer. M6 PT-IP Treatment Start: 08/14/17 14:48 Freq: Status: Active Protocol: Document 08/14/17 14:00 RCC (Rec: 08/14/17 15:14 [facility] [id number]) Physical Therapy Treatment Exercises Exercises Ankle Pumps Shoulder Flexion M7 PT-IP Assessment and Plan Start: 08/14/17 14:48 Freq: Status: Active Protocol: Document 08/15/17 08:44 RS (Rec: 08/15/17 09:00 RS [id number]) PT Summary Assessment and Plan Potential Rehabilitation Potential Fair Status of Condition at Evaluation Evolving Summary Impairments Strength Balance Coordination Cognition Bed Mobility Transfers Gait Activity Tolerance Progress Towards Goals Progressing Toward Goals Assessment Summary Pt better able to follow instructions today and does much better with functional cues let's get out of bed or let's get in the chair. Pt still impulsive but safe enough to participate in more mobility today. Despite slow improvement pt is still significantly below reported functional baseline and will greatly benefit from daily skilled therapy at SNF once medically ready. RN reports pt 's family would prefer to take her directly home 30/08 assist. Pt and family would need to participate in extensive caregiver training prior to this happening. Frequency of Treatment Frequency Of Treatment Twice a Day Treatment Plan Physical Therapy Treatment Plan Bed Mobility Training Transfer Training Gait Training Therapeutic Exercise Balance Retraining Discharge Planning Neuromuscular Re-ed Coordination Retraining Recommendations To Nursing Amount of Assist Needed 2 Person Assist Discharge Recommendations PT Discharge Recommendations Home with 24/7 Assist Home Health SNF Rehab Other Discharge Recommendations SNF vs. home with 24/7 and HH- depends on medical and cognitive condition
--- NOTE | 2017-08-15 09:11 | P.PN_ITS ---
Subjective Date Patient Seen: 08/15/17 Time Patient Seen: 09:03 Interval history: Patient continues to have improvement in mentation. She is not perseverating this morning and she is asking appropriate questions related to her hospitalization. Exam Vital Signs (past 8 hours): - 08/15/17 05:12 08/15/17 07:42 Temperature 96.4 F L 98.5 F Pulse Rate 66 65 Respiratory Rate 20 16 Blood Pressure 129/88 H 138/97 H Pulse Oximetry 97 99 Fraction of Inspired Oxygen 0.30 Oxygen Delivery Method Room Air Oxygen Flow Rate 2 Const General: cooperative and comfortable Nutritional Appearance: obese Orientation: alert, awake, oriented x3, oriented to person and oriented to place [facility] Head: normal to inspection, normocephalic and atraumatic Eyes General: appearance normal, both eyes and all related structures Pupils: PERRL and pupil size (3.0) bilaterally Chest Chest: normal inspection of the chest Resp Effort & Inspection: normal respiratory effort, able to speak in complete sentences and cough (Nonproductive, dry) Cardio Heart Sounds: S1 normal and S2 normal Other: No rubs clicks or murmurs appreciated. GI Inspection: normal to inspection Palpation: soft Auscultation: normal bowel sounds Other: Nontender Other: Urinary catheter on drain in place. Draining large amounts penny urine. Skin Other: Bilateral lower leg venous stasis rash present. Neuro General: alert, awake and oriented (Person and place) Speech: speech normal Motor: muscle tone normal throughout Extrem General: normal to inspection, capillary refill normal and no calf tenderness Other: No pretibial or ankle edema. Psych Appearance: grossly normal Mental Status: mental status grossly normal Mood: congruent mood Affect: normal affect Attitude: cooperative Objective Labs Result Diagrams: 08/15/17 05:10 08/15/17 05:10 Labs: Laboratory Results - last 24 hr 08/15/17 08/15/17 05:10 05:10 WBC 10.0 RBC 4.87 Hgb 14.1 Hct 42.9 MCV 88.1 MCH 28.9 MCHC 32.8 RDW 14.6 Plt Count 189 Neut % (Auto) 66.7 Lymph % (Auto) 23.3 L Delta % (Auto) 7.2 Eos % (Auto) 2.0 Baso % (Auto) 0.8 Neut # (Auto) 6700 H Sodium 139 Potassium 3.6 Chloride 108 H Carbon Dioxide 24 BUN 18 H Creatinine 1.20 H Estimated GFR 44.8 L BUN/Creatinine Ratio 15.0 Glucose 68 L Calcium 8.0 L Assessment & Plan Plan: Assessment/Plan Narrative: 1. Diabetic nonketotic hyperosmolar coma: Patient was treated with IV fluids, insulin drip and given her usual dose of Lantus with blood sugars normalized since a.m. August 13. She presented obtunded, glucose above 600, lactic acidosis > 4 with history of possible insulin noncompliance. This seems likely cause of obtundation. Differential diagnosis includes acute CVA, seizure, seizure, or other toxic encephalopathy. Head CT x 2 without obvious acute findings but does show sequelae of previous strokes, chronic small vessel disease, as well as incidental meningioma without mass effect. She does not have seizure history. This morning her glucose was 68. Plan: Discontinue IV hydration as she is taking po fluids well. Glucose running a little low, she received Lantus 60 units yesterday and we will decreased to 40 units Q morning. Continue NovoLog medium dose sliding scale. She is supposed to be on Lantus and Apidra as outpatient. 2. Intubation for airway protection: Extubated a.m. of 08/13/2017. Oxygen saturations have been good post extubation and patient with minimal cough. She is on room air this morning with saturations running in the high 90s. 3. Volume depletion, acute kidney injury: Initial labs highly suggestive of severe volume depletion with lactic acidosis, hemoconcentrated, elevated BUN to creatinine ratio in setting of severe hyperglycemia. Urine output improved with hydration. Creatinine peak creatinine 1.8, versus baseline creatinine 1.3. Her creatinine this morning is back to her baseline at 1.2. BUN of 18. BNP greater than 1000 on admission but clinically she appeared dry and was not in acute heart failure. She is more euvolemic at this point in time Plan: Saline lock IV as she is taking adequate fluids by mouth. DC urinary catheter. 4. Hyperkalemia: Correcting with oral potassium. Resolved. 5. Possible aspiration or other bacterial pneumonia: Diagnosis uncertain. Patient has been afebrile. She was found at home with vomitus on self and may have aspirated. There is suggestion of left lower lobe consolidation on CT. WBC was up to 19,000 but without left shift and now improved. Her white count this morning is 10.0. Initial procalcitonin less than 0.05 and repeat procalcitonin 0.2 still low. Blood cultures remain negative and urine microscopic not suggestive of UTI. Plan: Continue Levaquin 750 mg IV daily through 08/16/2017 to complete 5 day course. Antibiotic stop order was entered. 6. Atrial fibrillation, ventricular pacemaker: She is in ventricular paced rhythm. She does not have known coronary artery disease. She is supposed to be on Eliquis anticoagulation, rate control and other blood pressure lowering drugs but apparently ran out and has not been taking for probable the past couple of months. Resumed Eliquis. 7. Hypertension: BP running moderately to severely elevated since improved hydration. Using labetalol IV as needed. Restarted patient's routine medications now that she is able to take pills by mouth. 8. DVT prophylaxis: Stopped Lovenox and put patient back on her Eliquis. 9. Meningioma noted on head CT: This appears incidental and not causing any mass effect. It can be followed up on as outpatient with repeat imaging in 6- 12 months or specialist referral. 10. Fluids/nutrition/mobility: Stop IV fluids, clear liquid diet. Speech therapy to assess swallowing. Physical therapy consult to mobilize out of bed. 11. Acute metabolic encephalopathy due to 1. Resolving. 12. Disposition: Inpatient floor care.
--- NOTE | 2017-08-15 09:41 | OT.IP.EVAL ---
Current Diagnoses Type 2 diabetes mellitus with hyperosmolarity with coma (08/12/17) Past Medical History (Last Updated 08/12/17 @ 13:28 by Amado Storey MD) Diabetes (Chronic) Atrial fibrillation (Acute) Pacemaker (Chronic) Hypertension (Acute) Occupational Therapy Inpatient Evaluation/Re-Eval M1 PT/OT-IP Prior Functional Status Start: 08/14/17 14:48 Freq: Status: Active Protocol: Document 08/14/17 14:00 RCC (Rec: 08/14/17 15:14 RCC [id number]) Medical Review Prior Functional Status Medical History Reviewed Yes Communication indep. Mobility and Gait indep. ambulator without device. Able to do stairs indoors with rails. Activities of Daily Living and IADL's Indep. ADLs including showering Social History Household Members family Living Arrangements House Number of Floors (Floors) Two Floors Number of Stairs To Enter/Railing? 0 to enter Home Environment Standard Height Toilet Tub/Shower Home Equipment Four Wheel Walker Additional Social History Comment Xavier Carter, recently bought grab-bars to install in [place]. Pt lives downstairs with no step entry, all needs on main level. There are 5 steps to get to the rest of the living areas, but she does not need to manage that to d/c home. M1 PT/OT-IP Prior Functional Status Start: 08/15/17 09:29 Freq: NEEDED Status: Active Protocol: Document 08/15/17 08:45 ADH (Rec: 08/15/17 09:40 ADH [id number]) Medical Review Prior Functional Status Medical History Reviewed Yes Communication indep. Mobility and Gait indep. ambulator without device. Able to do stairs indoors with rails. Activities of Daily Living and IADL's Indep. ADLs including showering Social History Household Members family Living Arrangements House Number of Floors (Floors) Two Floors Number of Stairs To Enter/Railing? 0 to enter Home Environment Standard Height Toilet Tub/Shower Home Equipment Four Wheel Walker Additional Social History Comment Xavier Carter, recently bought grab-bars to install in BR. Pt lives downstairs with no step entry, all needs on main level. There are 5 steps to get to the rest of the living areas, but she does not need to manage that to d/c home. M3 OT- IP Subjective and Pain Start: 08/15/17 09:29 Freq: Status: Active Protocol: Document 08/15/17 08:45 ADH (Rec: 08/15/17 09:40 [facility] [id number]) OT- Subjective Occupational Therapy Visit Type Type Initial Evaluation Visit Start Time 08:23 Visit Stop Time 08:45 Total Visit Minutes 22 Occupational Therapy Visit Comments Patient Comments Pt agreeable to therapy services, pleasant throughout OT Pain Assessment Pain When Pain Assessed During Mobility Pain Present Pain Present Denied Pain M4 OT- IP ADL's Start: 08/15/17 09:29 Freq: Status: Active Protocol: Document 08/15/17 08:45 ADH (Rec: 08/15/17 09:40 ADH [id number]) OT ADL-Grooming General Evaluation Grooming Ability Standby Assistance Areas Needing Assistance Retrieving/Set-up of Grooming Items Comments OT Grooming Comments Pt presented with warm washcloth and hairbrush, able to complete familiar grooming tasks without additional cues, but needed cues to cease tasks d/t perseveration. OT ADL-Toileting Comments OT Toileting Comments dependent; catheter M7 OT- IP Mobility and Balance Start: 08/15/17 09:29 Freq: Status: Active Protocol: Document 08/15/17 08:45 ADH (Rec: 08/15/17 09:40 [facility] [id number]) OT- Bed Mobility Assessment Supine to Sit Supine to Sit Assist Contact Guard Assistance Scooting Scooting to Edge of Bed Contact Guard Assistance OT-Transfer Assessment Sit to and From Stand Sit to and from Stand Minimal Assistance Transfers Transfer Ability Moderate Assistance 2 Person Assistance Technique Transfer Destination Bed Chair Transfer Technique Stand Step Pivot Devices Transfer Assistive Devices Gait Belt Front Wheeled Walker Comments Mobility Comments Pt c difficulty using FWW safely, able to transfer with mod A of 2 with 0 device, holding on to therapist. Pt with decreased foot clearance and difficulty raising R knee. Nursing notified and demonstrated technique. OT- Gait Assessment Gait Gait Assistance Required: Moderate Assistance 2 Person Assist Able to Maintain Weight Bearing Status Yes During Gait Assistive Devices Assistive Device Gait Belt OT- Balance Assessment Sitting Balance and Reactions Static Sitting Balance Ability Good Standing Balance and Reactions Static Standing Balance Ability Good M8 OT- IP Objective Assessments Start: 08/15/17 09:29 Freq: Status: Active Protocol: Document 08/15/17 08:45 ADH (Rec: 08/15/17 09:40 ADH [id number]) OT Gross Range of Motion Upper Extremity Range of Motion Assessment Within Functional Limits OT Strength Upper Extremity Strength Assessment Within Functional Limits Comments Strength Comments Pt with difficulty following visual and verbal directions for MMT, perseveration throughout. Pt able to complete tasks with familiar vs abstract cues. M9 OT- IP Assessment and Plan Start: 08/15/17 09:29 Freq: Status: Active Protocol: Document 08/15/17 08:45 ADH (Rec: 08/15/17 09:40 [facility] [id number]) OT Summary Assessment and Plan Potential Rehabilitation Potential Good Analytic Complexity at Evaluation Low Summary OT Impairments Functional Cognition Functional Mobility Progress Towards Goals Progressing Toward Goals Assessment Summary Pt with progress in functional mobility and functional task performance over admit status r/t improved medical status. Pt currently below reported baseline, and needs 24/7 care at this time. Pt likely to improve, but will continue to need increased assistance over baseline. Recommend SNF d/t pt's difficulty performing familiar tasks with A of 1-2 at this time. Recognize pt's family may wish to take pt home and provide A, if that's the case recommend pt's family participate in caregiver education and DME assessment. Goals Toileting Goal Contact Guard Assistance Toilet Transfer Goal Contact Guard Assistance Frequency of Treatment Frequency Of Treatment Once a Day Treatment Plan OT Treatment Plan ADL Training Functional Cognition Training Functional Mobility Patient/Family Education Discharge Planning Discharge Recommendations OT Discharge Recommendations SNF Rehab
--- NOTE | 2017-08-15 10:59 | ST.IPIE ---
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 Per OT, patient has made improvements in mobility and cognition, but continues to be perseverative in tasks requiring cueing. Evaluation Liquids Trialed Ice Chips Solids Trialed Puree Dysphagia Mechanical Administration Type Tea Spoon Straw Oral Impairment Mildly Impaired Oral Strategies Upright at 90 degrees Oral Phase Comments Missing upper dentition, patient reports her dentures are at home. Observed perseveration with mastication of dysphagia mechanical trials eventually requiring verbal prompt to swallow. No oral residue present following trials of puree or dysphagia mechanical. No advanced textures trialed due to perseverative mastication. Pharyngeal Impairment Mildly Impaired Pharyngeal Phase Strategies Small Bites and Sips Pharyngeal Phase Comments Patient coughed with initial sip of thin liquids, but no overt s/sx of aspiration were observed with the remaining trials of liquids or solids. Findings Dysphagia Type Oropharyngeal Rehabilitation Potential Good Impressions Patient presents with mild oral dysphagia characterized by reduced efficiency of mastication secondary to impaired cognition. She also presents with suspected mild pharyngeal dysphagia likely due to impaired cognition and slow response time. She would benefit from 1:1 assistance as well as aspiration precautions including slow rate, small bites/sips, alternate liquids and solids. Diet Recommendations Liquids Order Thin Diet Order Dysphagia Blenderized Medication Recommendations As Tolerated Additional Dietary Needs 1:1 Assistance Reminders to Use Strategies Aspiration Precautions Recommended Precautions Upright at 90 Degrees Alternate Liquids/Solids Small Bites/Sips Treatment Plan Placement Recommendations after Snf Facility Discharge Therapy Recommendations Follow patient for dysphagia management to include potential for diet texture upgrade when appropriate. Dysphagia Goals Krystle will demonstrate the ability to adequately self- monitor swallowing skills and perform appropriate compensatory techniques to improve efficiency and safety during meals. DIRECT CASTING OPERATOR Cognitive/Memory Evaluation Start: 08/15/17 10:34 Freq: Status: Active Protocol: Document 08/15/17 10:34 TLC (Rec: 08/15/17 10:59 TLC [id number]) Evaluation of Cognition - - Cognition - Memory - Findings Cognitive/Memory Impressions Patient scored 10/30 on the Rafi Cognitive Assessment (MOCA) indicating impaired cognition. She scored 3/3 possible points on naming and 3/6 possible points on Orientation. She exhibited perseveration of previous tasks and required repetition of all directions. In conversation, she answered questions appropriately, but demonstrated slow processing time and frequent repetition of questions. Recommendations Recommendations Recommend ongoing assessment and treatment of cognitive impairments to include improving attention to more effectively communicate and follow multi-step directions. Recommend SNF stay at time of d/c due to impaired cognition which affects patient's safety awareness.
--- NOTE | 2017-08-15 11:20 | OT.IP.TRT ---
Current Diagnoses Type 2 diabetes mellitus with hyperosmolarity with coma (08/12/17) Occupational Therapy Treatment Note M3 OT- IP Subjective and Pain Start: 08/15/17 09:29 Freq: Status: Active Protocol: Document 08/15/17 08:45 ADH (Rec: 08/15/17 09:40 ADH [id number]) OT- Subjective Occupational Therapy Visit Type Type Initial Evaluation Visit Start Time 08:23 Visit Stop Time 08:45 Total Visit Minutes 22 Occupational Therapy Visit Comments Patient Comments Pt agreeable to therapy services, pleasant throughout OT Pain Assessment Pain When Pain Assessed During Mobility Pain Present Pain Present Denied Pain M4 OT- IP ADL's Start: 08/15/17 09:29 Freq: Status: Active Protocol: Document 08/15/17 11:17 ADH (Rec: 08/15/17 11:19 ADH [id number]) OT ADL-Bathing Bathing Type Bathing Type Sponge Bath General Evaluation Bathing Ability Minimal Assistance Comments OT Bathing Comments RESTAURANT AREA DIRECTOR reports pt able to complete sponge bath with min A, with appropriate timing/ sequencing. M6 OT- IP Functional Cognition Start: 08/15/17 09:29 Freq: Status: Active Protocol: Document 08/15/17 11:17 ADH (Rec: 08/15/17 11:19 ADH [id number]) Cognitive Factors Limiting Selfcare Function Cognitive Ability Level of Alertness Alert Patient Orientation Name Attention Span Ability Capable of Focused Attention Unable to Sustain Attention Ability to Follow Commands Able to Follow One Step Commands Memory Description Immediate Intact Safety Awareness Underestimates Need for Assistance Problem Solving Ability Needs Assist to Identify Solutions Executive Function Ability Unable to Hold Focus Unable to Filter Distractions Cognitive Comments Cognitive Assessment Comments Pt noted to have improved cognition over a.m. OT eval, as evidenced by ability to follow simple cues, minimal perseveration on task, and improved ability to engage in tasks for appropiate amount of time. M7 OT- IP Mobility and Balance Start: 08/15/17 09:29 Freq: Status: Active Protocol: Document 08/15/17 11:17 ADH (Rec: 08/15/17 11:19 ADH [id number]) OT-Transfer Assessment Sit to and From Stand Sit to and from Stand Contact Guard Assistance Transfers Transfer Ability 1 Person Assistance Comments Mobility Comments Pt able to ambulate with 1 person assist, w/c follow. Gait belt and hand hold only, no FWW used. M8 OT- IP Objective Assessments Start: 08/15/17 09:29 Freq: Status: Active Protocol: Document 08/15/17 08:45 ADH (Rec: 08/15/17 09:40 ADH [id number]) OT Gross Range of Motion Upper Extremity Range of Motion Assessment Within Functional Limits OT Strength Upper Extremity Strength Assessment Within Functional Limits Comments Strength Comments Pt with difficulty following visual and verbal directions for MMT, perseveration throughout. Pt able to complete tasks with familiar vs abstract cues. M9 OT- IP Assessment and Plan Start: 08/15/17 09:29 Freq: Status: Active Protocol: Document 08/15/17 08:45 ADH (Rec: 08/15/17 09:40 ADH [id number]) OT Summary Assessment and Plan Potential Rehabilitation Potential Good Analytic Complexity at Evaluation Low Summary OT Impairments Functional Cognition Functional Mobility Progress Towards Goals Progressing Toward Goals Assessment Summary Pt with progress in functional mobility and functional task performance over admit status r/t improved medical status. Pt currently below reported baseline, and needs 24/7 care at this time. Pt likely to improve, but will continue to need increased assistance over baseline. Recommend SNF d/t pt's difficulty performing familiar tasks with A of 1-2 at this time. Recognize pt's family may wish to take pt home and provide A, if that's the case recommend pt's family participate in caregiver education and DME assessment. Goals Toileting Goal Contact Guard Assistance Toilet Transfer Goal Contact Guard Assistance Frequency of Treatment Frequency Of Treatment Once a Day Treatment Plan OT Treatment Plan ADL Training Functional Cognition Training Functional Mobility Patient/Family Education Discharge Planning Discharge Recommendations OT Discharge Recommendations SNF Rehab
[2017-08-15] MEDS: CARVEDILOL 25 MG TABLET PO ×2 (11:24→21:46)
[2017-08-15] MEDS: LOSARTAN 50 MG TABLET PO (11:24)
[2017-08-15] MEDS: INSULIN GLARGINE 100 UNIT/ML 3ML PEN 40 UNIT SUBCUT (11:25)
[2017-08-15] MEDS: APIXABAN 5 MG TABLET PO ×2 (11:25→21:47)
--- NOTE | 2017-08-15 15:15 | PT.IPTN ---
Current Diagnoses Type 2 diabetes mellitus with hyperosmolarity with coma (08/12/17) Physical Therapy Treatment Note M2 PT-IP Current Condition Start: 08/14/17 14:48 Freq: Status: Active Protocol: Document 08/14/17 14:00 RCC (Rec: 08/14/17 15:14 RCC [id number]) Physical Therapy Current Condition Current Condition Evaluation Date 08/14/17 Treatment Diagnosis weakness, diabetic nonketotic hyperosmolar coma, dec. activity tolerance Onset Date 08/12/17 M3 PT-IP Subjective Start: 08/14/17 14:48 Freq: Status: Active Protocol: Document 08/15/17 11:25 RS (Rec: 08/15/17 15:15 RS [id number]) Subjective Physical Therapy Visit Type Type Treatment Note Visit Start Time 10:50 Visit Stop Time 11:25 Total Visit Minutes 35 Notes Pt just finishing with a bath w/ REFINER OPERATOR. Physical Therapy Visit Comments Patient Comments Pt reports feeling better after her bath, agreeable to participate in therapy. When questioned about pain, pt did report again having pain in her breasts but was unable to describe the pain quality or intensity. Therapy Pain Assessment Pain When Pain Assessed At Rest Pain Present Pain Present Pain Reported Location Bilateral Breast Scale Used pt unable to state number or descrive the pain in quality or intensity. M4 PT-IP Mobility and Gait Start: 08/14/17 14:48 Freq: Status: Active Protocol: Document 08/15/17 11:25 RS (Rec: 08/15/17 15:15 RS [id number]) PT-Transfer Assessment Sit to and From Stand Sit to and from Stand Contact Guard Assistance 1 Person Assistance Use of Upper Extremities Equipment Transfer Assistive Device Gait Belt Comments Mobility Comments Pt able to push up to standing with only CGA x 1 but did need a little steadying assist when first standing. Gait Assessment Gait Gait Assistance Required: Contact Guard Assist Moderate Assistance 1 Person Assist Distance (Feet) (feet) 100 Assistive Devices Assistive Device Gait Belt Gait Deviations General Gait Pattern Decreased Stride Length Decreased Feet Clearance Lateral Trunk Lean Wide Based Gait Factors Limiting Gait Function Factors Limiting Gait Function Decreased Activity Tolerance Difficulty Following Directions Poor Balance Poor Safety Awareness Comments Gait Comments Initially began walking with bilat hand-held assist, PT walking backward in front of pt. Pt required grossly min A with this technique. Switched to PT standing on R side with CGA at gait belt and pt without UE support. Pt able to walk with this technique at a CGA most of the time. Pt's stepping pattern improved as the session progressed, intially having trouble moving the RLE but gait was quite symmetrical by the end. Pt did have two major LOBs that required mod<>max A from PT to prevent a fall. They both occurred when pt was distracted and looking away from her pathway. FGA items were trialed while walking with definite degradation of gait quality. Pt was a little winded once back in the room sitting in recliner. Stair Climbing Assessment Comments Stair Climbing Comments not yet tested PT-Balance Assessment Sitting Balance and Reactions Static Sitting Balance Ability Good Dynamic Sitting Balance Ability Good Standing Balance and Reactions Static Standing Balance Ability Fair Dynamic Standing Balance Ability Fair Device Used none M5 PT-IP Objective Assessments Start: 08/14/17 14:48 Freq: Status: Active Protocol: Document 08/14/17 14:00 RCC (Rec: 08/14/17 15:14 RCC [id number]) Orientation Orientation/Cognition Level of Alertness Confusional State Safety Awareness Decreased Safety Awareness Comments unable to verbally communicate besides a few yes answers to simple questions Gross Range of Motion Upper Extremity ROM Assessment Within Functional Limits Strength Comments Strength Comments not able to be formally tested due to confusion. Able to perform SLR bilaterally and pump ankles up/down and perform LAQ sitting on EOB. Coordination Assessment Gross Coordination Gross Coordination Impaired Assessment Coordination Comments Pt able to perform R index to nose with eyes open, cannot close eyes on command. Not willing/able to do finger to nose without assistance. Pt continued to perform R index to nose continuously while standing. Sensation Assessment Comments Sensation Comments unable to test or answer. M6 PT-IP Treatment Start: 08/14/17 14:48 Freq: Status: Active Protocol: Document 08/14/17 14:00 RCC (Rec: 08/14/17 15:14 RCC [id number]) Physical Therapy Treatment Exercises Exercises Ankle Pumps Shoulder Flexion M7 PT-IP Assessment and Plan Start: 08/14/17 14:48 Freq: Status: Active Protocol: Document 08/15/17 11:25 RS (Rec: 08/15/17 15:15 RS [id number]) PT Summary Assessment and Plan Potential Rehabilitation Potential Good Status of Condition at Evaluation Evolving Summary Impairments Strength Balance Coordination Cognition Bed Mobility Transfers Gait Activity Tolerance Progress Towards Goals Progressing Toward Goals Assessment Summary Pt able to participate in more activity with significantly less assist this session. Pt able to follow delayed instructions as well without need for additional cues. Pt is improving each session but is still below reported functional baseline. Continue to recommend pt transition to SNF rehab as pt will greatly benefit from daily skilled therapy. However, if pt/family ultimately wish to discharge directly home then this is becoming an appropriate option as pt is quickly improving. If pt goes home she will definitely need 24/7 assist and HHPT. Recommendations To Nursing Amount of Assist Needed 1 Person Assist 2 Person Assist Discharge Recommendations PT Discharge Recommendations Home with 24/7 Assist Home Health SNF Rehab Other Discharge Recommendations SNF vs. home with 24/7 and HH- depends on medical and cognitive condition and family preference.
--- NOTE | 2017-08-15 15:23 | CM.DPC ---
DCP/continued: Reviewed chart. MANAGER PRINTING met with patient, son/Xavier and Parvez-Elda/Chinyere at bedside explained CM/SW role. Patient seen by therapy today. Current recommendation is SNF vs. home with HH and 24/ supervision. Therapy and RN report patient significantly getting stronger daily. Patient's family unsure about d/c plan at this time. Although son reports that patient would prefer to go home. Patient communicating somewhat and agreed that she wants to return home. Patient resides in [place] and lives with 4 family members. Family reports that they are there most of the time? Michael/Chinyere reports that she is unclear on patient's medical insurance? Chinyere indicates that she has been to the social security office and believes that patient is supposed to have Medicare part A&B. Chinyere adds that patient did not qualify for state assistance because of her monthly income of over $1,000.00 per month. Family very confused on patient's current primary and secondary payor. With patient/family permission offered to ask SNF in [facility] to check on benefits for [facility] and whether or not patient has Medicare part A and or Medicaid. Family reports that this would be a recent change because they recently have been in social security office for clarification. MANAGER PRINTING placed call to Ariadne at [facility] she is happy to have billing office check benefit. Asked VEENA/Nila to fax demographic sheet. Ariadne reports that she will touch base with CM team on 08-16-17. P: Pending. If patient continues to improve, family would like to take her home. Family open to HH if covered by health plan and recommended. [facility] checking on benefit per CM team request and family/patient permission. KATY Domínguez
--- NOTE | 2017-08-15 22:23 | PC.NURSE ---
Evenign Shift Note Alert, oriented to self/birthday/place/situation, increased confusion at end of night, easily redirected, bed alarm on. VSS, 100% RA, SOB w/ exertion. No complaints of pain. Tolerating diet, partials now at pts bedside. Up w/ max 2p assist w/ gait/FWW to bedside commode, continent of urine, brief on. CBG 76 & 148. no SSI given this shift, at full meals. L arm PIV SL.
[2017-08-16] VITALS (12 sets, daily range): BP systolic 125–191; BP diastolic 83–110; PULSE 60–67; RESP 17–22; TEMP 36.4–37.1; O2SAT 90–100
[2017-08-16 05:40] LABS: BUN Creatinine Ratio 18.3 (6-22); Blood Urea Nitrogen 22 mg/dL (7-17); Calcium 7.9 mg/dL (8.4-10.2); Carbon Dioxide 25 mmol/L (22-32); Chloride 107 mmol/L (98-107); Estimated Glomerular Filt Rate 44.8 mL/min (>60); Glucose 113 mg/dL (80-110); HEMOLYSIS 22 (0-50); Potassium 3.7 mmol/L (3.4-5.1); Sodium 137 mmol/L (137-145)
[2017-08-16 05:42] LABS: Add Manual Diff / Slide Review NO; Basophils Percent Auto 0.8 % (0-2); Eosinophils Percent Auto 1.7 % (2-4); Hematocrit 38.8 % (36-46); Hemoglobin 12.9 g/dL (12.0-16.0); Lymphocytes Percent Auto 27.1 % (25-40); Mean Corpuscular HGB Conc 33.2 % (30-36); Mean Corpuscular Volume 87.3 fL (80-100); Monocytes Percent Auto 7.9 % (3-14); Neutrophils Absolute Auto 5300 /uL (3000-5900); Neutrophils Percent Auto 62.5 % (50-75); Platelet Count 162 X10^3/uL (150-400); Red Blood Cell Count 4.45 X10^6/uL (4.0-5.2); Red Cell Distribution Width 14.2 % (11.6-14.8); White Blood Cell Count 8.6 X10^3/uL (4.5-11.0)
[2017-08-16] MEDS: LABETALOL 20 MG/4 ML SYRINGE IV (06:42)
[2017-08-16] MEDS: SODIUM CHLORIDE 0.9% FLUSH 10 ML IV ×3 (06:43→21:48)
[2017-08-16] MEDS: CARVEDILOL 25 MG TABLET PO ×2 (09:21→20:45)
[2017-08-16] MEDS: APIXABAN 5 MG TABLET PO ×2 (09:21→20:44)
[2017-08-16] MEDS: INSULIN GLARGINE 100 UNIT/ML 3ML PEN 40 UNIT SUBCUT (09:22)
[2017-08-16] MEDS: LOSARTAN 50 MG TABLET PO ×2 (09:22→20:46)
--- NOTE | 2017-08-16 09:33 | PM.PN.1 ---
Subjective Date Patient Seen: 08/16/17 Time Patient Seen: 09:33 Interval history: Patient continues slow improvement in her mentation. She responds appropriately to verbal commands, and is no longer perseverating. She appears comfortable sitting in the chair at the bedside of the bed. Exam Vital Signs (past 8 hours): - 08/16/17 06:40 08/16/17 06:42 08/16/17 07:37 Temperature 97.8 F 97.9 F Pulse Rate 65 65 60 Respiratory Rate 17 22 Blood Pressure 178/98 H 178/98 H 172/86 H Pulse Oximetry 97 91 Fraction of Inspired Oxygen 0.30 Oxygen Delivery Method Room Air Oxygen Flow Rate 0 Narrative Exam Narrative: General: cooperative and comfortable Nutritional Appearance: obese Orientation: alert, awake, oriented x3, oriented to person and oriented to place HENMT Head: normal to inspection, normocephalic and atraumatic Eyes General: appearance normal, both eyes and all related structures Pupils: PERRL and pupil size (3.0) bilaterally Chest Chest: normal inspection of the chest Resp Effort & Inspection: normal respiratory effort, able to speak in complete sentences and cough (Nonproductive, dry) Cardio Heart Sounds: S1 normal and S2 normal Other: No rubs clicks or murmurs appreciated. GI Inspection: normal to inspection Palpation: soft Auscultation: normal bowel sounds Other: Nontender Other: Voiding Skin Other: Bilateral lower leg venous stasis rash present. Trace pitting edema bilateral ankles. Neuro General: alert, awake and oriented (Person and place) Speech: speech normal Motor: muscle tone normal throughout Extrem General: normal to inspection, capillary refill normal and no calf tenderness Appearance: grossly normal Mental Status: mental status grossly normal Mood: congruent mood Affect: normal affect Attitude: cooperative Objective Labs Result Diagrams: 08/16/17 05:18 08/16/17 05:18 Labs: Laboratory Results - last 24 hr 08/16/17 08/16/17 08/16/17 05:18 05:18 05:18 WBC 8.6 RBC 4.45 Hgb 12.9 Hct 38.8 MCV 87.3 MCH 29.0 MCHC 33.2 RDW 14.2 Plt Count 162 Neut % (Auto) 62.5 Lymph % (Auto) 27.1 [place] % (Auto) 7.9 Eos % (Auto) 1.7 L Baso % (Auto) 0.8 Neut # (Auto) 5300 Sodium 137 Potassium 3.7 Chloride 107 Carbon Dioxide 25 BUN 22 H Creatinine 1.20 H Estimated GFR 44.8 L BUN/Creatinine Ratio 18.3 Glucose 113 H Calcium 7.9 L B-Natriuretic Peptide 928.0 H Assessment & Plan Plan: Assessment/Plan Narrative: 1. Diabetic nonketotic hyperosmolar coma: Patient was treated with IV fluids, insulin drip and given her usual dose of Lantus with blood sugars normalized since a.m. August 13. She presented obtunded, glucose above 600, lactic acidosis > 4 with history of possible insulin noncompliance. This seems likely cause of obtundation. Differential diagnosis includes acute CVA, seizure, seizure, or other toxic encephalopathy. Head CT x 2 without obvious acute findings but does show sequelae of previous strokes, chronic small vessel disease, as well as incidental meningioma without mass effect. She does not have seizure history. This morning her glucose was 113. Plan: She received Lantus 40 units yesterday. Continue NovoLog medium dose sliding scale. She is supposed to be on Lantus and Apidra as outpatient. 2. Intubation for airway protection: Extubated a.m. of 08/13/2017. Oxygen saturations have been good post extubation and patient with minimal cough. She is on room air this morning with saturations running in the high 90s. No signs of respiratory distress. 3. Volume depletion, acute kidney injury: Initial labs highly suggestive of severe volume depletion with lactic acidosis, hemoconcentrated, elevated BUN to creatinine ratio in setting of severe hyperglycemia. Urine output improved with hydration. Creatinine peak creatinine 1.8, versus baseline creatinine 1.3. Her creatinine this morning is back to her baseline at 1.2. BUN of 22. BNP greater than 1000 on admission but clinically she appeared dry and was not in acute heart failure. She is more euvolemic at this point in time. Saline lock IV as she is taking adequate fluids by mouth. Urinary catheter was removed yesterday. 4. Hyperkalemia: Correcting with oral potassium. Resolved. 5. Possible aspiration or other bacterial pneumonia: Diagnosis uncertain. Patient has been afebrile. She was found at home with vomitus on self and may have aspirated. There is suggestion of left lower lobe consolidation on CT. WBC was up to 19,000 but without left shift and now improved. Her white count this morning is 10.0. Initial procalcitonin less than 0.05 and repeat procalcitonin 0.2 still low. Blood and urine cultures remain negative and urine microscopic not suggestive of UTI. Plan: Continue Levaquin 750 mg IV daily through 08/16/2017 to complete 5 day course. Antibiotic stop order was entered. 6. Atrial fibrillation, ventricular pacemaker: She is in ventricular paced rhythm. She does not have known coronary artery disease. She is supposed to be on Eliquis anticoagulation, rate control and other blood pressure lowering drugs but apparently ran out and has not been taking for probable the past couple of months. Resumed Eliquis. 7. Hypertension: BP running moderately high since improved hydration. She has been on her home medications of carvedilol and half of her typical dose of losartan since August 14. Labetalol IV was administered as needed. Now that she is taking fluids and solid diet we increased her losartan to 50 mg twice a day, and resume her diltiazem of 60 mg SR b.i.d. Will stop the chlorthalidone as this may contribute to her hyperglycemia. 8. DVT prophylaxis: Stopped Lovenox and put patient back on her Eliquis. 9. Meningioma noted on head CT: This appears incidental and not causing any mass effect. It can be followed up on as outpatient with repeat imaging in 6-12 months or specialist referral. 10. Fluids/nutrition/mobility: Stop IV fluids, clear liquid diet. Speech therapy to assess swallowing. Physical therapy consult to mobilize out of bed. 11. Acute metabolic encephalopathy due to 1. Resolving. 12. Disposition: Inpatient floor care. If she continues to improve will plan on discharging her in the morning to either to snf facility or to home with home health.
--- NOTE | 2017-08-16 11:00 | PT.IPTN ---
Current Diagnoses Type 2 diabetes mellitus with hyperosmolarity with coma (08/12/17) Physical Therapy Treatment Note M2 PT-IP Current Condition Start: 08/14/17 14:48 Freq: Status: Active Protocol: Document 08/14/17 14:00 RCC (Rec: 08/14/17 15:14 RCC [id number]) Physical Therapy Current Condition Current Condition Evaluation Date 08/14/17 Treatment Diagnosis weakness, diabetic nonketotic hyperosmolar coma, dec. activity tolerance Onset Date 08/12/17 M3 PT-IP Subjective Start: 08/14/17 14:48 Freq: Status: Active Protocol: Document 08/16/17 11:00 AB (Rec: 08/16/17 11:35 AB [id number]) Subjective Physical Therapy Visit Type Type Treatment Note Visit Start Time 11:00 Visit Stop Time 11:25 Total Visit Minutes 25 Number of PROOFREADER Visits 0 Physical Therapy Visit Comments Patient Comments pt agreeable to get up M4 PT-IP Mobility and Gait Start: 08/14/17 14:48 Freq: Status: Active Protocol: Document 08/16/17 11:00 AB (Rec: 08/16/17 11:35 AB [id number]) PT-Bed Mobility Assessment Supine to Sit Supine to Sit Maximum Assistance 1 Person Assistance Gait Assessment Gait Gait Assistance Required: Contact Guard Assist Distance (Feet) (feet) 125 Able to Maintain Weight Bearing Status Yes During Gait Assistive Devices Assistive Device Gait Belt Front Wheeled Walker Orthotic/Prosthetic Devices or Brace: No Gait Deviations General Gait Pattern Antalgic Decreased Stride Length Decreased Feet Clearance Factors Limiting Gait Function Factors Limiting Gait Function Decreased Activity Tolerance Decreased Strength Poor Balance Poor Safety Awareness Comments Gait Comments noted R LE in external rotation, pt stated that she has R knee problem. also stated that she uses a 4WW inside her house occasionally for mobility. M5 PT-IP Objective Assessments Start: 08/14/17 14:48 Freq: Status: Active Protocol: Document 08/14/17 14:00 RCC (Rec: 08/14/17 15:14 RCC [id number]) Orientation Orientation/Cognition Level of Alertness Confusional State Safety Awareness Decreased Safety Awareness Comments unable to verbally communicate besides a few yes answers to simple questions Gross Range of Motion Upper Extremity ROM Assessment Within Functional Limits Strength Comments Strength Comments not able to be formally tested due to confusion. Able to perform SLR bilaterally and pump ankles up/down and perform LAQ sitting on EOB. Coordination Assessment Gross Coordination Gross Coordination Impaired Assessment Coordination Comments Pt able to perform R index to nose with eyes open, cannot close eyes on command. Not willing/able to do finger to nose without assistance. Pt continued to perform R index to nose continuously while standing. Sensation Assessment Comments Sensation Comments unable to test or answer. M6 PT-IP Treatment Start: 08/14/17 14:48 Freq: Status: Active Protocol: Document 08/14/17 14:00 RCC (Rec: 08/14/17 15:14 RCC [id number]) Physical Therapy Treatment Exercises Exercises Ankle Pumps Shoulder Flexion M7 PT-IP Assessment and Plan Start: 08/14/17 14:48 Freq: Status: Active Protocol: Document 08/16/17 11:00 AB (Rec: 08/16/17 11:35 AB [id number]) PT Summary Assessment and Plan Potential Rehabilitation Potential Good Summary Impairments Pain ROM Strength Balance Sensation Cognition Bed Mobility Transfers Gait Activity Tolerance Progress Towards Goals Slow Progress due to Activity Tolerance Assessment Summary pt progressing slowly with increase in ambulation but continues to have decrease safety awareness. pt stated that her children works and cannot assist her at home. d/ c plan depending on progress and safety but may need SNF to improve strength/activity tolerance and independence. Goals Bed Mobility Goal Standby Assistance Transfer Goal Standby Assistance Four Wheeled Walker Gait Goal Standby Assistance Front Wheel Walker Gait Distance 200 Days to Meet Goals 3 Frequency of Treatment Frequency Of Treatment Twice a Day Treatment Plan Physical Therapy Treatment Plan Bed Mobility Training Transfer Training Gait Training Therapeutic Exercise Balance Retraining Discharge Planning Neuromuscular Re-ed Coordination Retraining Recommendations To Nursing Amount of Assist Needed 1 Person Assist Discharge Recommendations PT Discharge Recommendations Home with 24/7 Assist Home Health SNF Rehab Other Discharge Recommendations SNF vs. home with 24/7 and HH- depends on medical and cognitive condition and family preference.
--- NOTE | 2017-08-16 11:37 | ST.IPTN ---
INDEPENDENT TRADER Treatment Note INDEPENDENT TRADER Treatment Note Start: 08/16/17 10:24 Freq: Status: Active Protocol: Document 08/16/17 10:24 JEFFERY (Rec: 08/16/17 10:32 JEFEFRY [id number]) Speech Pathology Treatment Note Session Time Visit Start Time 09:05 Visit Stop Time 09:25 Total Visit Minutes 15 Setting Treatment Setting Acute Care Visit Type Note Type Treatment Note Subjective Identification Type Name Observations/Patient Presentation Pt was sitting up in chair with breakfast tray. She was alert and when asked how she was, stated that she was confused. She asked who the doctor was who had just seen her and was provided answer. The pt was oriented to place and generally why she was in the hospital, stating, They thought I had a stroke or something. She recalled having had a stroke in past, about 2 years ago, I think. The pt also recalled that her upper dentures/partials had been brought to her, that they didn't fit without adhesive, and stated that she often eats without them. Chief Complaint(s) Swallowing Cognitive Objective Short Term Goals Follow patient for dysphagia management to include potential for diet texture upgrade when appropriate. Economics Lecturer Goals Krystle will demonstrate the ability to adequately self- monitor swallowing skills and perform appropriate compensatory techniques to improve efficiency and safety during meals. Treatment Activities Cognitive Communication: The pt was not highly verbose during the session; however, her limited verbal communication was appropriate, and she was oriented to self, place, and generally recent medical events. Although she stated she was confused, she did not exhibit confusion in conversation and activities involving eating breakfast. Dysphagia: Pt self fed with minimal setup assistance including moving items to within reach. She did drop food from her spoon once and dropped silverware from her hands twice, demonstrating some coordination difficulties . She tolerated thin liquid from straw and cup in single and consecutive sips, pureed and dysphagia mechanical texture. Mastication was mildly prolonged secondary to minimal dentition but not perseverative, and A/P propulsion and swallow trigger were prompt. Mild-moderate oral residue was frequently observed but did clear adequately with additional swallows and/or liquid wash. Assessment Patient Response to Treatment Good Rehab Potential Good Impairments Identified Cognitive-Linguistic Skills Dysphagia Assessment of Overall Progress Improving Assessment of Improvement The pt is improving in awareness and swallow safety. Upgrade to dysphagia mechanical diet texture. Continue thin liquids, straws ok, medication as tolerated, distant supervision with setup assistance as needed. Recommend dc to SNF with ongoing ST interventions targeting dysphagia and cognitive communication. Reviewed with Patient Goals Progress Being Made Patient/Caregiver Understanding Fair Plan Provided Patient/Caregiver Instruction Plan of Care Questions/Concerns Therapy Recommendations Continue with Current Program Visit Care Team Role Provider Type Christiano Orr MD Family Provider Non-Staff Primary Care Provider Address: [address] , [place], [address] Peg Johnson DO Emergency Provider Physician Address: [address] [place] [address], [id number] Amado Storey MD Admit Provider Physician Attending Provider Address: [address] [place] [address], [id number]
[2017-08-16] MEDS: ATORVASTATIN 20 MG TABLET 40 MG PO (12:30)
[2017-08-16] MEDS: INSULIN ASPART 100 UNIT/ML INSULN PEN SUBCUT ×3 (12:30→21:30)
[2017-08-16] MEDS: levoFLOXacin 750 MG/150 ML PIGGYBACK 100 MG IV (12:33)
--- NOTE | 2017-08-16 12:37 | CM.DPC ---
Message received from Ariadne at [facility]. States they cannot accept this patient; they do not accept , and she does not know of any facility in [facility] who accepts this insurance. States we may need to look up in [facility] or down in [place]. Sorry they cannot accept. They are still looking into whether or not this patient has Medicaid coverage and have not received answer yet. She will call us back when she finds out. (Note: patient has active MCR Part B only, no part A.) Visit from DAVID Webster for Hospitalist team, who gave update that patient will be ready to d/c to home tomorrow with Home Health. Order written by undersigned as [facility]VOC for Dr. Storey for HH PT, OT and RN. (Patient declines bath aide.) DCP visited patient who agreed that she will be happy to d/c to home with HH services and stated no bath aide. Reminded Gilson that we will need a signed F2F by Hospitalist tomorrow and he said Dr. Ray would do this. Contacted: Called Xiomara at [facility]. She stated they will look into whether or not they can see patient with coverage. [facility] faxed pertinent clinicals to them today at [phone] (NOTE: Their usual FAX number is not working reliably; she requested we fax to this new #). Plan: D/C to home tomorrow with [facility] if they can accept pt insurance. NEEDS close follow up in AM. Need signed F2F. Maryanne Ashley RN
--- NOTE | 2017-08-16 13:45 | OT.IP.TRT ---
Current Diagnoses Type 2 diabetes mellitus with hyperosmolarity with coma (08/12/17) Type 2 diabetes mellitus without complications (08/12/17) Occupational Therapy Treatment Note M3 OT- IP Subjective and Pain Start: 08/15/17 09:29 Freq: Status: Active Protocol: Document 08/16/17 13:45 PJM (Rec: 08/16/17 15:26 [facility] [id number]) OT- Subjective Occupational Therapy Visit Type Type Treatment Note Visit Start Time 12:55 Visit Stop Time 13:45 Total Visit Minutes 50 Notes Pt awake in chair; would like to shower. OT Pain Assessment Pain When Pain Assessed After Treatment Pain Present Pain Present Denied Pain M4 OT- IP ADL's Start: 08/15/17 09:29 Freq: Status: Active Protocol: Document 08/16/17 13:45 PJM (Rec: 08/16/17 15:26 [facility] [id number]) OT ADL-Grooming General Evaluation Grooming Ability Standby Assistance Areas Needing Assistance Retrieving/Set-up of Grooming Items Comments OT Grooming Comments pt combing hair seated in chair with good thoroughness after set up OT ADL-Oral Care General Eval Oral Care Ability Minimal Assistance Areas of Assistance Brushing Teeth Managing Dentures Retrieving/Set-Up of Items Comments Oral Care Comments Pt needs mod verbal cues to problem solve unfamiliar set up, decreased self monitoring noted e.g. spilling when rinsing mouth, and needed assist to open Efferdent package and cap on toothpaste OT ADL-Dressing General Eval Upper Body Dressing Ability Moderate Assistance Lower Body Dressing Ability Moderate Assistance Maximum Assistance Areas Needing Assistance Retrieving/Set-up of Clothing Underpants/Brief Socks Comments OT Dressing Comments Pt has difficulty reaching feet and needed mod assist with brief and max assist with donning and doffing socks this session. OT ADL-Bathing Bathing Type Bathing Type Shower General Evaluation Bathing Ability Moderate Assistance Areas Needing Assistance Retrieving/Setting Up Items Wash/Dry Upper Body Wash/Dry Back Wash/Dry Lower Extremities Devices Bathing Equipment Hand Held Shower Sprayer Shower Chair without Arms Grab Bars Comments OT Bathing Comments Heavy use of grab bars in standing. Poor thoroughness cleaning/drying under pannus requiring max assist. Decreased organization/ sequencing of task requiring max cues. M6 OT- IP Functional Cognition Start: 08/15/17 09:29 Freq: Status: Active Protocol: Document 08/15/17 11:17 ADH (Rec: 08/15/17 11:19 [facility] [id number]) Cognitive Factors Limiting Selfcare Function Cognitive Ability Level of Alertness Alert Patient Orientation Name Attention Span Ability Capable of Focused Attention Unable to Sustain Attention Ability to Follow Commands Able to Follow One Step Commands Memory Description Immediate Intact Safety Awareness Underestimates Need for Assistance Problem Solving Ability Needs Assist to Identify Solutions Executive Function Ability Unable to Hold Focus Unable to Filter Distractions M7 OT- IP Mobility and Balance Start: 08/15/17 09:29 Freq: Status: Active Protocol: Document 08/16/17 13:45 PJ (Rec: 08/16/17 15:26 [facility] [id number]) OT-Transfer Assessment Sit to and From Stand Sit to and from Stand Contact Guard Assistance Transfers Transfer Ability Contact Guard Assistance 1 Person Assistance Technique Transfer Destination Chair Shower Stall Transfer Technique Stand Step Pivot Devices Transfer Assistive Devices Gait Belt Front Wheeled Walker Comments Mobility Comments close CGA for mobility with FWW and min cues for FWW use OT- Gait Assessment Gait Gait Assistance Required: Contact Guard Assist Assistive Devices Assistive Device Gait Belt Front Wheeled Walker Comments Gait Ability Comments Pt walked total of 50 feet to and from shower room with FWW OT- Balance Assessment Sitting Balance and Reactions Static Sitting Balance Ability Good Dynamic Sitting Balance Ability Fair Standing Balance and Reactions Static Standing Balance Ability Fair Dynamic Standing Balance Ability Fair Comments Other Balance Tests/Deviations/Treatment Pt needs close CGA and use of : grab bar for dynamic standing activities M9 OT- IP Assessment and Plan Start: 08/15/17 09:29 Freq: Status: Active Protocol: Document 08/16/17 13:45 PJ (Rec: 08/16/17 15:26 [facility] [id number]) OT Summary Assessment and Plan Potential Rehabilitation Potential Good Summary OT Impairments Strength Balance Coordination Functional Cognition Functional Mobility Grooming Dressing Toileting Bathing Toilet Transfers Shower Transfers Progress Towards Goals Slow Progress due to Activity Tolerance Slow Progress due to Cognition Assessment Summary Pt needs significant assist with showering and dressing with slow speed of processing. Pt needs verbal cues for sequencing/organization and thoroughness of basic self care tasks. Speech difficult to understand at times. Pt making daily progress but is still far below her baseline level of function. Pt states both her son and daughter in law work and she is normally home alone for long periods of time. No family here to confirm home situation. Pt currently needs 24 hr assist for safety and for all functional mobility, transfers , dressing, bathing, and toileting. Recommend short term SNF prior to return home to increase functional cognition, safety, endurance and indep in all self care and functional mobility. Goals Grooming Goal Standby Assistance Dressing Goal Minimal Assistance Long Handled Shoe Horn Building Architect Sock Aid Toileting Goal Contact Guard Assistance Bathing Goal Minimal Assistance Toilet Transfer Goal Contact Guard Assistance Shower Transfer Goal Standby Assistance Shower Chair Grab Bars Patient/Caregiver Education Goal Caregiver Independent Assisting Patient OT-Other Goals Grooming to be done standing at sink. Pt to complete medication management task with min cues and 90% accuracy. Days to Meet Goals 5 Frequency of Treatment Frequency Of Treatment Once a Day Treatment Plan OT Treatment Plan ADL Training Functional Cognition Training Functional Mobility Patient/Family Education Discharge Planning Discharge Recommendations OT Discharge Recommendations SNF Rehab Home Equipment Needs shower chair, grab bars, sloop captain, sock aid, long shoe horn
--- NOTE | 2017-08-16 14:31 | PT.IPTN ---
Current Diagnoses Type 2 diabetes mellitus with hyperosmolarity with coma (08/12/17) Type 2 diabetes mellitus without complications (08/12/17) Physical Therapy Treatment Note M2 PT-IP Current Condition Start: 08/14/17 14:48 Freq: Status: Active Protocol: Document 08/14/17 14:00 [facility] (Rec: 08/14/17 15:14 [facility] [id number]) Physical Therapy Current Condition Current Condition Evaluation Date 08/14/17 Treatment Diagnosis weakness, diabetic nonketotic hyperosmolar coma, dec. activity tolerance Onset Date 08/12/17 M3 PT-IP Subjective Start: 08/14/17 14:48 Freq: Status: Active Protocol: Document 08/16/17 13:40 CLB (Rec: 08/16/17 14:31 CLB [email or web address]) Subjective Physical Therapy Visit Type Type Treatment Note Visit Start Time 13:40 Visit Stop Time 13:55 Total Visit Minutes 15 Notes Pt just finishing with shower with OT Kim. Number of ELDER COUNSELOR Visits 1 Physical Therapy Visit Comments Patient Comments pt agreeable to get up M4 PT-IP Mobility and Gait Start: 08/14/17 14:48 Freq: Status: Active Protocol: Document 08/16/17 13:40 CLB (Rec: 08/16/17 14:31 CLB [id number]) PT-Transfer Assessment Sit to and From Stand Sit to and from Stand Contact Guard Assistance 1 Person Assistance Use of Upper Extremities Equipment Transfer Assistive Device Gait Belt Front Wheeled Walker Transfers Transfer Destination Chair Transfer Technique after walk Comments Mobility Comments Pt able to stand CGA from chair to FWW. Gait Assessment Gait Gait Assistance Required: Contact Guard Assist Distance (Feet) (feet) 150 Able to Maintain Weight Bearing Status Yes During Gait Assistive Devices Assistive Device Gait Belt Front Wheeled Walker Orthotic/Prosthetic Devices or Brace: No Gait Deviations General Gait Pattern Antalgic Decreased Stride Length Decreased Feet Clearance Factors Limiting Gait Function Factors Limiting Gait Function Decreased Activity Tolerance Decreased Strength Poor Balance Poor Safety Awareness Comments Gait Comments Pt increased ambulation with minor c/o R knee pain. PT-Balance Assessment Sitting Balance and Reactions Static Sitting Balance Ability Good Dynamic Sitting Balance Ability Good Standing Balance and Reactions Static Standing Balance Ability Fair Dynamic Standing Balance Ability Fair Device Used none M5 PT-IP Objective Assessments Start: 08/14/17 14:48 Freq: Status: Active Protocol: Document 08/14/17 14:00 RCC (Rec: 08/14/17 15:14 [facility] [id number]) Orientation Orientation/Cognition Level of Alertness Confusional State Safety Awareness Decreased Safety Awareness Comments unable to verbally communicate besides a few yes answers to simple questions Gross Range of Motion Upper Extremity ROM Assessment Within Functional Limits Strength Comments Strength Comments not able to be formally tested due to confusion. Able to perform SLR bilaterally and pump ankles up/down and perform LAQ sitting on EOB. Coordination Assessment Gross Coordination Gross Coordination Impaired Assessment Coordination Comments Pt able to perform R index to nose with eyes open, cannot close eyes on command. Not willing/able to do finger to nose without assistance. Pt continued to perform R index to nose continuously while standing. Sensation Assessment Comments Sensation Comments unable to test or answer. M6 PT-IP Treatment Start: 08/14/17 14:48 Freq: Status: Active Protocol: Document 08/14/17 14:00 RCC (Rec: 08/14/17 15:14 [facility] [id number]) Physical Therapy Treatment Exercises Exercises Ankle Pumps Shoulder Flexion M7 PT-IP Assessment and Plan Start: 08/14/17 14:48 Freq: Status: Active Protocol: Document 08/16/17 13:40 CLB (Rec: 08/16/17 14:31 CLB [id number]) PT Summary Assessment and Plan Potential Rehabilitation Potential Good Status of Condition at Evaluation Evolving Summary Impairments Pain ROM Strength Balance Sensation Cognition Bed Mobility Transfers Gait Activity Tolerance Progress Towards Goals Slow Progress due to Activity Tolerance Assessment Summary Pt increased gait distance with c/o R knee pain. Pt continues to need cues for safety during ambulation with turn. Depending on pt progress pt may need SNF rehab to increase activity tolerance and safety. Goals Bed Mobility Goal Standby Assistance Transfer Goal Standby Assistance Four Wheeled Walker Gait Goal Standby Assistance Front Wheel Walker Gait Distance 200 Days to Meet Goals 3 Frequency of Treatment Frequency Of Treatment Twice a Day Treatment Plan Physical Therapy Treatment Plan Bed Mobility Training Transfer Training Gait Training Therapeutic Exercise Balance Retraining Discharge Planning Neuromuscular Re-ed Coordination Retraining Recommendations To Nursing Amount of Assist Needed 1 Person Assist Discharge Recommendations PT Discharge Recommendations Home with 24/7 Assist Home Health SNF Rehab Other Discharge Recommendations SNF vs. home with 24/7 and HH- depends on medical and cognitive condition and family preference.
[2017-08-16] MEDS: dilTIAZem SR 60 MG PO (20:46)
--- NOTE | 2017-08-16 21:36 | PC.NURSE ---
Patient awake and conversant, able to answer questions appropriately. Reveiwed events of admission, present plan of care. Family in to visit this evening- aware plan patient to be discharged tomorrow- they were notifying son. Patient up walking to bathroom with walker- standby assist. Stable on feet. also ambulated in hallway around nurses station. states she feels like usual level of strength- ability to walk this evening.
[2017-08-17] VITALS (7 sets, daily range): BP systolic 116–155; BP diastolic 67–104; PULSE 65–66; RESP 18–20; TEMP 35.8–36.8; O2SAT 95–98
[2017-08-17 06:55] LABS: BUN Creatinine Ratio 18.3 (6-22); Blood Urea Nitrogen 22 mg/dL (7-17); Calcium 8.1 mg/dL (8.4-10.2); Carbon Dioxide 26 mmol/L (22-32); Chloride 104 mmol/L (98-107); Estimated Glomerular Filt Rate 44.8 mL/min (>60); Glucose 133 mg/dL (80-110); HEMOLYSIS 33 (0-50); Potassium 3.7 mmol/L (3.4-5.1); Sodium 137 mmol/L (137-145)
--- NOTE | 2017-08-17 10:05 | PT.IPTN ---
Current Diagnoses Type 2 diabetes mellitus with hyperosmolarity with coma (08/12/17) Type 2 diabetes mellitus without complications (08/12/17) Physical Therapy Treatment Note M2 PT-IP Current Condition Start: 08/14/17 14:48 Freq: Status: Active Protocol: Document 08/14/17 14:00 RCC (Rec: 08/14/17 15:14 [facility] [id number]) Physical Therapy Current Condition Current Condition Evaluation Date 08/14/17 Treatment Diagnosis weakness, diabetic nonketotic hyperosmolar coma, dec. activity tolerance Onset Date 08/12/17 M3 PT-IP Subjective Start: 08/14/17 14:48 Freq: Status: Active Protocol: Document 08/17/17 10:05 GGD (Rec: 08/17/17 11:29 [facility] [id number]) Subjective Physical Therapy Visit Type Type Treatment Note Visit Start Time 09:50 Visit Stop Time 10:05 Total Visit Minutes 15 Number of ANIMAL SERVICES OFFICER Visits 2 Physical Therapy Visit Comments Patient Comments Pt willing to work with PT. Therapy Pain Assessment Pain When Pain Assessed At Rest Pain Present Pain Present Denied Pain M4 PT-IP Mobility and Gait Start: 08/14/17 14:48 Freq: Status: Active Protocol: Document 08/17/17 10:05 GGD (Rec: 08/17/17 11:29 [facility] [id number]) PT-Transfer Assessment Sit to and From Stand Sit to and from Stand Contact Guard Assistance Use of Upper Extremities Equipment Transfer Assistive Device Gait Belt Front Wheeled Walker Transfers Transfer Destination Chair Gait Assessment Gait Gait Assistance Required: Contact Guard Assist Distance (Feet) (feet) 150 Able to Maintain Weight Bearing Status Yes During Gait Assistive Devices Assistive Device Gait Belt Front Wheeled Walker Orthotic/Prosthetic Devices or Brace: No Gait Deviations General Gait Pattern Antalgic Decreased Stride Length Decreased Feet Clearance Factors Limiting Gait Function Factors Limiting Gait Function Decreased Activity Tolerance Decreased Strength Poor Balance Poor Safety Awareness Stair Climbing Assessment Evaluation Level of Assist On Stairs Contact Guard Assistance Devices Stair Climbing Assistive Devices Right Railing Technique/Endurance Stair Climbing Direction Ascend and Descend Stair Climbing Technique Step to Step Number of Steps Climbed 1 Query Text: Stair Climbing Set # Repetitions (reps) 3 M5 PT-IP Objective Assessments Start: 08/14/17 14:48 Freq: Status: Active Protocol: Document 08/14/17 14:00 RCC (Rec: 08/14/17 15:14 [facility] [id number]) Orientation Orientation/Cognition Level of Alertness Confusional State Safety Awareness Decreased Safety Awareness Comments unable to verbally communicate besides a few yes answers to simple questions Gross Range of Motion Upper Extremity ROM Assessment Within Functional Limits Strength Comments Strength Comments not able to be formally tested due to confusion. Able to perform SLR bilaterally and pump ankles up/down and perform LAQ sitting on EOB. Coordination Assessment Gross Coordination Gross Coordination Impaired Assessment Coordination Comments Pt able to perform R index to nose with eyes open, cannot close eyes on command. Not willing/able to do finger to nose without assistance. Pt continued to perform R index to nose continuously while standing. Sensation Assessment Comments Sensation Comments unable to test or answer. M6 PT-IP Treatment Start: 08/14/17 14:48 Freq: Status: Active Protocol: Document 08/14/17 14:00 RCC (Rec: 08/14/17 15:14 [facility] [id number]) Physical Therapy Treatment Exercises Exercises Ankle Pumps Shoulder Flexion M7 PT-IP Assessment and Plan Start: 08/14/17 14:48 Freq: Status: Active Protocol: Document 08/17/17 10:05 GGD (Rec: 08/17/17 11:29 [facility] [id number]) PT Summary Assessment and Plan Summary Assessment Summary Pt improving with mobility. She need cues for stair mobility. She had no unsteadiness with gait with FWW. Frequency of Treatment Frequency Of Treatment Twice a Day Treatment Plan Physical Therapy Treatment Plan Bed Mobility Training Transfer Training Gait Training Therapeutic Exercise Balance Retraining Discharge Planning Neuromuscular Re-ed Coordination Retraining Recommendations To Nursing Amount of Assist Needed 1 Person Assist Discharge Recommendations PT Discharge Recommendations Home with 24/7 Assist Home Health SNF Rehab Other Discharge Recommendations SNF vs. home with 24/7 and HH- depends on medical and cognitive condition and family preference.
--- NOTE | 2017-08-17 10:25 | ST.IPTN ---
TAXI PROPRIETOR Treatment Note TAXI PROPRIETOR Treatment Note Start: 08/16/17 10:24 Freq: Status: Active Protocol: Document 08/17/17 10:16 TLC (Rec: 08/17/17 10:25 [facility] [id number]) Speech Pathology Treatment Note Session Time Visit Start Time 08:45 Visit Stop Time 09:05 Total Visit Minutes 20 Setting Treatment Setting Acute Care Visit Type Note Type Treatment Note Subjective Identification Type Name Observations/Patient Presentation Patient was sitting up in chair in room with breakfast tray. She required assistance with opening her utensils and condiments. She denied any confusions and correctly stated her location as well as recalled use of call light when prompted. Chief Complaint(s) Swallowing Cognitive Objective Short Term Goals Follow patient for dysphagia management to include potential for diet texture upgrade when appropriate. - goal met, upgraded to dysphagia mechanical Hydroponics Worker Goals Krystle will demonstrate the ability to adequately self- monitor swallowing skills and perform appropriate compensatory techniques to improve efficiency and safety during meals. Treatment Activities Cognitive communication: patient is oriented, but safety awareness remains decreased as evidenced by inconsistent use of the call light per nursing. Training provided to patient for use of call light. Dysphagia: patient self-fed with minimal set-up assistance . She dropped her utensil on one occasion showing ongoing difficulty with coordination. She consumed thin liquids and dysphagia mechanical textures (scrambled eggs and hash browns ) with out overt signs of aspiration or difficulty. Her partials were on the table, but she requested they not be put in stating they don't stay in well. Assessment Patient Response to Treatment Good Rehab Potential Good Impairments Identified Cognitive-Linguistic Skills Dysphagia Assessment of Overall Progress Improving Assessment of Improvement The patient's dysphagia and cognition continue to improve. Continue dysphagia mechanical , thin liquids, straws ok, medication as tolerated, distant supervision with setup assistance as needed. Recommend [facility] at time of d/c home for ongoing assessment and treatment of cognition to include safety awareness training as needed. Reviewed with Patient Goals Progress Being Made Patient/Caregiver Understanding Fair Plan Provided Patient/Caregiver Instruction Plan of Care Questions/Concerns Therapy Recommendations Continue with Current Program Visit Care Team Role Provider Type Christiano Orr MD Family Provider Non-Staff Primary Care Provider Address: [address], [place], [address] Peg Johnson DO Emergency Provider Physician Address: [address] [place] [address], [id number] Amado Storey MD Admit Provider Physician Attending Provider Address: [address] [place] [address], [address]
[2017-08-17] MEDS: ATORVASTATIN 20 MG TABLET 40 MG PO (10:36)
[2017-08-17] MEDS: INSULIN GLARGINE 100 UNIT/ML 3ML PEN 50 UNIT SUBCUT (10:36)
[2017-08-17] MEDS: dilTIAZem SR 60 MG PO ×2 (10:36→20:47)
[2017-08-17] MEDS: LOSARTAN 50 MG TABLET PO ×2 (10:36→20:48)
[2017-08-17] MEDS: APIXABAN 5 MG TABLET PO ×2 (10:38→20:48)
[2017-08-17] MEDS: CARVEDILOL 25 MG TABLET PO ×2 (10:38→20:47)
--- NOTE | 2017-08-17 11:29 | CM.DPC ---
DCP Cont: Left message for son to call regarding home situation. Left message for Xiomara from [facility] home health to call back this nurse regarding paperwork that was faxed P: Will continue to monitor discharge progress, and home health situation. Shahla Amador RN/Pneumatic Tube Fitter
--- NOTE | 2017-08-17 11:56 | P.PN_ITS ---
Subjective Date Patient Seen: 08/17/17 Time Patient Seen: 09:48 Interval history: Patient sitting at bedside having breakfast. Appears to be in no acute distress. She is pleasant in conversation and is oriented to person and place Exam Vital Signs (past 8 hours): - 08/17/17 04:45 08/17/17 04:49 08/17/17 07:52 Temperature 96.5 F L 97.5 F L Pulse Rate 65 66 Respiratory Rate 20 18 Blood Pressure 118/73 117/67 Pulse Oximetry 97 97 97 Fraction of Inspired Oxygen 0.30 Oxygen Delivery Method Room Air Oxygen Flow Rate 0 Narrative Exam Narrative: cooperative and comfortable Nutritional Appearance: obese Orientation: alert, awake, oriented x2, oriented to person and oriented to place HENNV Head: normal to inspection, normocephalic and atraumatic Eyes General: appearance normal, both eyes and all related structures Pupils: PERRL and pupil size (3.0) bilaterally Chest Chest: normal inspection of the chest Resp Effort & Inspection: normal respiratory effort, able to speak in complete sentences no cough Cardio Heart Sounds: S1 normal and S2 normal Other: No rubs clicks or murmurs appreciated. GI Inspection: normal to inspection Palpation: soft Auscultation: normal bowel sounds Other: Nontender Other: Voiding Skin Other: Bilateral lower leg venous stasis rash present. Trace pitting edema bilateral ankles. Neuro General: alert, awake and oriented (Person and place) Speech: speech normal Motor: muscle tone normal throughout Extrem General: normal to inspection, capillary refill normal and no calf tenderness Appearance: grossly normal Mental Status: mental status grossly normal Mood: congruent mood Affect: normal affect Attitude: cooperative Objective Labs Result Diagrams: 08/16/17 05:18 08/17/17 06:15 Labs: Laboratory Results - last 24 hr 08/17/17 06:15 Sodium 137 Potassium 3.7 Chloride 104 Carbon Dioxide 26 BUN 22 H Creatinine 1.20 H Estimated GFR 44.8 L BUN/Creatinine Ratio 18.3 Glucose 133 H Calcium 8.1 L Assessment & Plan Plan: Assessment/Plan Narrative: 1. Diabetic nonketotic hyperosmolar coma: Patient was treated with IV fluids, insulin drip and given her usual dose of Lantus with blood sugars normalized since a.m. August 13. She presented obtunded, glucose above 600, lactic acidosis > 4 with history of possible insulin noncompliance. This seems likely cause of obtundation. Differential diagnosis includes acute CVA, seizure, seizure, or other toxic encephalopathy. Head CT x 2 without obvious acute findings but does show sequelae of previous strokes, chronic small vessel disease, as well as incidental meningioma without mass effect. She does not have seizure history. This morning her glucose was 133. Plan: She received Lantus 40 units yesterday. We will increase her to 50 units of Lantus today. Continue NovoLog medium dose sliding scale. She is supposed to be on Lantus and Apidra as outpatient. 2. Intubation for airway protection: Extubated a.m. of 08/13/2017. Oxygen saturations have been good post extubation and patient with no cough. She is on room air this morning with saturations running in the high 90s. No signs of respiratory distress. 3. Volume depletion, acute kidney injury: Initial labs highly suggestive of severe volume depletion with lactic acidosis, hemoconcentrated, elevated BUN to creatinine ratio in setting of severe hyperglycemia. Urine output improved with hydration. Creatinine peak creatinine 1.8, versus baseline creatinine 1.3. Her creatinine this morning is back to her baseline at 1.2. BUN of 22. BNP greater than 1000 on admission but clinically she appeared dry and was not in acute heart failure. She is more euvolemic at this point in time. Saline lock IV as she is taking adequate fluids by mouth. Voiding. 4. Hyperkalemia: Correcting with oral potassium. Resolved. 5. Possible aspiration or other bacterial pneumonia: Diagnosis uncertain. Patient has been afebrile. She was found at home with vomitus on self and may have aspirated. There is suggestion of left lower lobe consolidation on CT. WBC was up to 19,000 but without left shift and now improved. Her white count this morning is 8.6. Initial procalcitonin less than 0.05 and repeat procalcitonin 0.2 still low. Blood and urine cultures remain negative and urine microscopic not suggestive of UTI. Plan: Will stop Levaquin IV today. 6. Atrial fibrillation, ventricular pacemaker: She is in ventricular paced rhythm. She does not have known coronary artery disease. She is supposed to be on Eliquis anticoagulation, rate control and other blood pressure lowering drugs but apparently ran out and has not been taking for probable the past couple of months. Resumed Eliquis. 7. Hypertension: BP running moderately high since improved hydration. She has been on her home medications of carvedilol and half of her typical dose of losartan since August 14. Labetalol IV was administered as needed. Now that she is taking fluids and solid diet we increased her losartan to 50 mg twice a day, and resume her diltiazem of 60 mg SR b.i.d. Will stop the chlorthalidone as this may contribute to her hyperglycemia. 8. DVT prophylaxis: Stopped Lovenox and put patient back on her Eliquis. 9. Meningioma noted on head CT: This appears incidental and not causing any mass effect. It can be followed up on as outpatient with repeat imaging in 6- 12 months or specialist referral. 10. Fluids/nutrition/mobility: Stop IV fluids, clear liquid diet. Speech therapy to assess swallowing. Physical therapy consult to mobilize out of bed. 11. Acute metabolic encephalopathy due to 1. Resolving. 12. Disposition: Inpatient floor care. If she continues to improve will plan on discharging her in the morning to either to care home facility or to home with home health. A care home facility in our local areas not authorized on her insurance. [facility] is searching for 1 in the [place] area. If this is not possible and she will probably be discharged tomorrow with home health. She does have children that live with her but not home 24 hr a day.
--- NOTE | 2017-08-17 12:30 | CM.DPC ---
Attempted to reach son, Xavier, to inquire if they would be assisting patient when she returns home. Spoke to DAVID Riggins, will plan on discharge tomorrow, to give time if additional plans need to be changed, and if skilled facility may be needed. Spoke to Xiomara at [facility]. Stated that they accept patient's current insurance, but not [employer] or bath aide. Paperwork was faxed over. Shahla Amador RN/Portfolio Manager
--- NOTE | 2017-08-17 12:36 | OT.IP.TRT ---
Current Diagnoses Type 2 diabetes mellitus with hyperosmolarity with coma (08/12/17) Type 2 diabetes mellitus without complications (08/12/17) Occupational Therapy Treatment Note M3 OT- IP Subjective and Pain Start: 08/15/17 09:29 Freq: Status: Active Protocol: Document 08/17/17 12:36 PJM (Rec: 08/17/17 18:23 PJ [id number]) OT- Subjective Occupational Therapy Visit Type Type Treatment Note Visit Start Time 11:40 Visit Stop Time 12:36 Total Visit Minutes 56 OT Pain Assessment Pain When Pain Assessed After Treatment Pain Present Pain Present Denied Pain M4 OT- IP ADL's Start: 08/15/17 09:29 Freq: Status: Active Protocol: Document 08/17/17 12:36 PJM (Rec: 08/17/17 18:23 PJ [id number]) OT LTS-[id number]-Dtyeaib General Evaluation Self-Feeding Ability Independent OT ADL-Toileting General Evaluation Toileting Ability Standby Assistance Comments OT Toileting Comments adelita care after urination M6 OT- IP Functional Cognition Start: 08/15/17 09:29 Freq: Status: Active Protocol: Document 08/17/17 12:36 PJM (Rec: 08/17/17 18:23 PJ [id number]) Cognitive Factors Limiting Selfcare Function Cognitive Ability Level of Alertness Confusional State Patient Orientation Name Month Date Place Attention Span Ability Capable of Focused Attention Ability to Follow Commands Able to Follow One Step Commands Memory Description Immediate Impaired Short Term Impaired Working Impaired Safety Awareness Decreased Recall of Precautions Decreased Ability to Apply Precautions Underestimates Need for Assistance Problem Solving Ability Unable to Identify Errors Needs Assist to Identify Solutions Executive Function Ability Unable to Switch Focus Unable to Filter Distractions Unable to Make Plans Unable to Organize Plans Unable to Remember Details Abstract Thinking Ability Unable to Make Generalizations Unable to Draw Logical Conclusions Unable to Apply Concepts to New Surroundings Unable to Apply Concepts to New Situations Cognitive Tests MOCA 30 compared to previous score here of /30. Norm is 26/30 Pt still has significant difficulty with basic orientation facts, unable to recall her zip code or phone number. Pt had difficulty with Trails B task and clock drawing task. She recalls 1/5 words immediately, 0/5 after 5 min delay. Pt unable to do mental math and has decreased working memory. ACL 3.4/6.0 Persons at this level need 24 hour supervision for safety due to decreased problem solving and awareness of potential hazards, and inability to problem solve home safety situations. Pt needs assistance with all medication and financial internship and hot meal preparation due to memory deficits. Cognitive Comments Cognitive Assessment Comments Pt demonstrating slow improvement in cognitive function but still requires 24 hr assistance/supervision for safety at home. OT- Vision and Hearing OT- Hearing Assessment OT- Hearing Assessment WFL OT- Vision Assessment Visual Acuity WFL Glasses For Reading M7 OT- IP Mobility and Balance Start: 08/15/17 09:29 Freq: Status: Active Protocol: Document 08/17/17 12:36 PJM (Rec: 08/17/17 18:23 PJ [id number]) OT-Transfer Assessment Sit to and From Stand Sit to and from Stand Contact Guard Assistance Transfers Transfer Ability Contact Guard Assistance Technique Transfer Destination Toilet Devices Transfer Assistive Devices Gait Belt Front Wheeled Walker OT- Gait Assessment Gait Gait Assistance Required: Contact Guard Assist Distance (Feet) (feet) 30 Assistive Devices Assistive Device Gait Belt Front Wheeled Walker Comments Gait Ability Comments 15 ft to bathroom and back; pt steadier on feet today OT- Balance Assessment Sitting Balance and Reactions Static Sitting Balance Ability Good Standing Balance and Reactions Static Standing Balance Ability Good Dynamic Standing Balance Ability Fair Comments Other Balance Tests/Deviations/Treatment standing balance with FWW : M8 OT- IP Objective Assessments Start: 08/15/17 09:29 Freq: Status: Active Protocol: Document 08/15/17 08:45 ADH (Rec: 08/15/17 09:40 ADH [id number]) OT Gross Range of Motion Upper Extremity Range of Motion Assessment Within Functional Limits OT Strength Upper Extremity Strength Assessment Within Functional Limits Comments Strength Comments Pt with difficulty following visual and verbal directions for MMT, perseveration throughout. Pt able to complete tasks with familiar vs abstract cues. M9 OT- IP Assessment and Plan Start: 08/15/17 09:29 Freq: Status: Active Protocol: Document 08/17/17 12:36 PJM (Rec: 08/17/17 18:23 PJM [id number]) OT Summary Assessment and Plan Summary OT Impairments Strength Balance Functional Cognition Functional Mobility Dressing Toileting Bathing Toilet Transfers Shower Transfers Progress Towards Goals Slow Progress due to Cognition Assessment Summary Pt making slow steady daily progress, but has not yet been cleared for independent ambulation and has persistent significant cognitive deficits on standardized screening tests as described above. No family here to confirm how much assist they can provide at home. Pt would benefit from further rehab services at SNF to increase indep, safety, endurance and functional cognition prior to return home . Pt would benefit from the daily therapy there and structured setting. If pt can receive 24 hr assist at home and family prefers home d/c, recommend HH PT/OT/ST/Bath aide. Goals Grooming Goal Standby Assistance Dressing Goal Minimal Assistance Long Handled Shoe Horn Work From Home Sock Aid Toileting Goal Standby Assistance Bathing Goal Minimal Assistance Toilet Transfer Goal Independent Shower Transfer Goal Standby Assistance Shower Chair Grab Bars Patient/Caregiver Education Goal Caregiver Independent Assisting Patient OT-Other Goals Grooming to be done standing at sink. Pt to complete medication management task with min cues and 90% accuracy. Frequency of Treatment Frequency Of Treatment Once a Day Treatment Plan OT Treatment Plan ADL Training Functional Cognition Training Functional Mobility Patient/Family Education Discharge Planning Discharge Recommendations OT Discharge Recommendations SNF Rehab Other Discharge Recommendations vs home with 24 hr assist and HH services Home Equipment Needs shower chair, grab bars, glass cutting machine operator, sock aid, long shoe horn
[2017-08-17] MEDS: INSULIN ASPART 100 UNIT/ML INSULN PEN SUBCUT ×2 (12:51→16:43)
--- NOTE | 2017-08-17 13:39 | PC.NURSE ---
PT REMAINS WEAK BUT EACH DAY GAINING STRENGTH - SHE DOES REQUIRE CUES FOR BATHING AND OTHER SIMPLE ADL'S- FEEDS SELF- DISCHARGE ON HOLD TODAY - CASE ANNABEL STILL ATTEMPTING TO FIND PLACEMENT FOR THIS PT AND IF NOTHING AVAILABLE HOME WITH HOME HEALTH SERVICES AT TIME OF DISCHARGE
[2017-08-18 00:54] VITALS: BP 124/84; PULSE 64; RESP 18; TEMP 35.8; O2SAT 99
[2017-08-18 01:24] VITALS: O2SAT 99
[2017-08-18 05:47] LABS: BUN Creatinine Ratio 22.5 (6-22); Blood Urea Nitrogen 27 mg/dL (7-17); Calcium 7.7 mg/dL (8.4-10.2); Carbon Dioxide 21 mmol/L (22-32); Chloride 107 mmol/L (98-107); Estimated Glomerular Filt Rate 44.8 mL/min (>60); Glucose 95 mg/dL (80-110); HEMOLYSIS 48 (0-50); Potassium 3.9 mmol/L (3.4-5.1); Sodium 135 mmol/L (137-145)
[2017-08-18 07:27] VITALS: BP 109/82; PULSE 65; RESP 18; TEMP 36.9; O2SAT 96
[2017-08-18 07:34] VITALS: O2SAT 99
--- NOTE | 2017-08-18 07:40 | PC.NURSE ---
Addendum entered by Elke Lin R.N. 08/18/17 14:12: DC - pt sam arrived, her father whom Delia spoke to earlier was at work, no clothing brought in, pt then states she has no medicines at home, I need elequis, the only script was for the lantus change and per , no addl scripts will be provided, the pt needs to contact her PCP and have medications for her chronic conditions be managed by PCP. With Delia's assistance, the granddtr contacted her father and relayed this info to him and he told his dtr that he would take care of this and is aware that the pt does not have medications or scripts other than the lantus change. A follow up appt was made for pt with Dr. Orr, she was tsf to with her belongings, including cell phone and imcu nurse, tablet, bracelets x 3, glasses, we sent her home in our gown and socks. At no point did the pt seem to understand this despite several repetitions but the granddtr and son were repeatedly informed of the above and the importance of them calling her PCP immediately to have her medications called into [facility] in [place]. CROWN BLOCKER escorted pt to car via . Original Note: Addendum entered by Elke Lin R.N. 08/18/17 09:54: pain/cbg - recheck cbg 165, spoke Gilson HERNANDEZ regarding earlier cbg 67, will continue with same lantus dose. New order rec'd for tylenol and given for upper chest discomfort when coughing. Original Note: Addendum entered by Elke Lin R.N. 08/18/17 07:42: VITALS -HR 60,cbg 67this am and given apple juice now. Original Note: AM NOTE- alert,oriented,was assisted BR x 1 person fww byCNA,void and bm, no complaints abd discomfort, some upper chest discomfort at times with cough, coarse crackles l lower lobe, ra99%,hr
[2017-08-18] MEDS: CARVEDILOL 25 MG TABLET PO (08:32)
[2017-08-18] MEDS: ATORVASTATIN 20 MG TABLET 40 MG PO (08:32)
[2017-08-18] MEDS: APIXABAN 5 MG TABLET PO (08:32)
[2017-08-18] MEDS: dilTIAZem SR 60 MG PO (08:33)
[2017-08-18] MEDS: LOSARTAN 50 MG TABLET PO (08:33)
--- NOTE | 2017-08-18 10:11 | ST.IPTN ---
PERINATAL NURSE Treatment Note PERINATAL NURSE Treatment Note Start: 08/16/17 10:24 Freq: Status: Active Protocol: Document 08/18/17 10:01 TLC (Rec: 08/18/17 10:11 [facility] [id number]) Speech Pathology Treatment Note Session Time Visit Start Time 08:00 Visit Stop Time 08:20 Total Visit Minutes 20 Setting Treatment Setting Acute Care Visit Type Note Type Treatment Note Subjective Identification Type Name Observations/Patient Presentation Patient was lying in bed, but awake and conversant. She was agreeable to participate in cognitive linguistic therapy. Chief Complaint(s) Swallowing Cognitive Objective Short Term Goals Dysphagia goals met, ongoing therapy to target improved cognition and safety awareness . Treatment Activities Targeted cognitive linguistic skills: problem solving/safety awareness - patient reports she has a life alert button for around her neck at home, states she lives with her son and [id number] who both work and their two children, targeted basic math equations ~50% accuracy, demonstrated distractibility and requested repetition of problems on multiple occasions, was unable to perform simple subtraction (12-7) despite multiple repetitions. Targeted answering complex y/n questions ~75% accuracy, slow processing speed. Targeted following three-step directions ~80% accuracy. Oriented to self, place , month and year. No dysphagia treatment provided. Assessment Patient Response to Treatment Good Rehab Potential Good Impairments Identified Cognitive-Linguistic Skills Dysphagia Assessment of Overall Progress Improving Assessment of Improvement Patient states she is not yet at baseline and reports she has difficulty with her memory. She was unable to recall what she ate for dinner last night. In addition, she continues to display slow processing speed with decreased comprehension of multi-step directions and complex questions. Patient would benefit from SNF stay for ongoing therapy to include safety awareness and compensatory strategy training . If patient d/cs home, recommend 24/ assist w/ HH ST due to cognitive impairments affecting safety awareness. Reviewed with Patient Goals Progress Being Made Patient/Caregiver Understanding Fair Plan Provided Patient/Caregiver Instruction Plan of Care Questions/Concerns Therapy Recommendations Continue with Current Program Visit Care Team Role Provider Type Christiano Orr MD Family Provider Non-Staff Primary Care Provider Address: [address], [place], [address] Peg Johnson DO Emergency Provider Physician Address: [address] [place] [address], [id number] Amado Storey MD Admit Provider Physician Attending Provider Address: [address] [place] [address], [place], [address]
[2017-08-18] MEDS: INSULIN GLARGINE 100 UNIT/ML 3ML PEN 50 UNIT SUBCUT (10:12)
[2017-08-18] MEDS: ACETAMINOPHEN 325 MG TABLET PO (10:31)
--- NOTE | 2017-08-18 10:32 | P.DS_ITS ---
History of Present Illness Date Patient Seen: 08/18/17 Time Patient Seen: 10:19 Chief complaint: Weakness Narrative: Patient is a 67-year-old female found unresponsive by a family member early on the morning of August 12. Patient lives with her son. He states that she seemed in usual state of health last night. This morning her granddaughter found her face down in the bathroom covered in vomitus. Also noted incontinent of stool in urine. Medics were called and patient was intubated in the ER for airway protection. Patient apparently has history of atrial fibrillation and had pacemaker placement due to bradycardia. She does not have known coronary artery disease. Family states that she ran out of her prescription pills sometime ago and did not have pills refilled due to lost her insurance. It is unclear if she has been taking her insulin. Her blood sugar was over 600 in the ER with anion gap of 16 and negative acetones. Lactic acid elevated at 4.1. Potassium 6.0. Tox screen negative. She did have some hypotension after started on propofol drip post intubation. ABG post intubation on 100% FiO2 pH 7.32, pCO2 46, PO2 307, base excess -4.0. Discharge Providers Date of admission: 08/12/17 11:50 Primary care physician: Christiano Orr MD Consults: 08/14/17 10:51 Consult to Physical Therapy Evaluate & Treat Comment: Physician Instructions: Evaluate and Treat Consult to Speech Therapy Evaluate & Treat Comment: abdulaziz fishman Physician Instructions: Evaluate and treat 08/14/17 13:59 Consult to Occupational Therapy Evaluate & Treat Comment: Physician Instructions: Evaluate and treat 08/16/17 12:20 Consult to Home Health Routine Comment: VVOC per Gilson HERNANDEZ for [facility]; HH- PT, OT, RN Reason For Exam: DM Discharge provider: DAVID Finney Summary Discharge Diagnosis: 1. Diabetic nonketotic hyperosmolar coma 2. Acute kidney injury, volume depletion 3. Hyperkalemia 4. Possible aspiration pneumonia 5. Atrial fibrillation 6. Meningioma noted on head CT Hospital Course: This is a summary of a 6 day hospitalization for this 67-year- old obese but pleasant female patient who was admitted with non ketotic hyperosmolar diabetic coma. After initial evaluation she was started on normal saline hydration with IV insulin drip and ICU monitoring. Due to her state of obtundation she was also intubated for airway protection but did not appear in any acute respiratory failure. Her O2 was titrated down she was extubated within the initial 12 hr of hospitalization. On arrival she was in lactic acidosis, she was hemoconcentrated, and had an elevated BUN to creatinine ratio as well as having significant drops her blood pressure after intubation all suggestive of severe volume depletion secondary to hyperglycemia. She was given 3 L of normal saline bolus and continued on maintenance fluid until she became euvolemic. Her hyperkalemia was most likely due to the hyperglycemia and renal failure. In addition to the IV fluids she received insulin and calcium gluconate and her potassium normalized. There is suggestion of left lower lobe consolidation on CT, a mildly elevated white blood cell count despite being afebrile, within normal pro calcitonin level. It is possible as she may have aspirated during her initial obtundation at home and she was treated empirically with Levaquin for 5 days. She has remained in a ventricularly paced rhythm with no other dysrhythmias noted. Clinically she progressed well over the next several days requiring her usual doses of insulin and sliding scale for follow-through. PT and OT have seen and evaluated her and recommend either retirement facility or home with 24 hr assist and home health services due to her recent cognitive deficits. There is an incidental finding on the head CT which showed a meningioma for which she should be followed as an outpatient. Recommend stopping her chlorthalidone as this may be contributing to her hyperglycemia and her blood pressures appeared to remain at baseline without it. Status at Discharge Functional status at discharge: uses cane/walker Overall status at discharge: patient is progressing back to baseline Time Spent with Patient Greater than 30 minutes Exam Vital Signs (past 8 hours): - 08/18/17 07:27 08/18/17 07:34 Temperature 98.5 F Pulse Rate 65 Respiratory Rate 18 Blood Pressure 109/82 H Pulse Oximetry 96 99 Fraction of Inspired Oxygen 0.30 Oxygen Delivery Method Room Air Oxygen Flow Rate 0 Narrative Exam Narrative: General: cooperative and comfortable Nutritional Appearance: obese Orientation: alert, awake, oriented x3, oriented to person, place, time, and situation. [facility] Head: normal to inspection, normocephalic and atraumatic Eyes General: appearance normal, both eyes and all related structures Pupils: PERRL and pupil size (3.0) bilaterally Chest Chest: normal inspection of the chest Resp Effort & Inspection: normal respiratory effort, able to speak in complete sentences and cough (Nonproductive, dry) Cardio Heart Sounds: S1 normal and S2 normal Other: No rubs clicks or murmurs appreciated. GI Inspection: normal to inspection Palpation: soft Auscultation: normal bowel sounds Other: Nontender Other: Voiding Skin Other: Bilateral lower leg venous stasis rash present. Trace pitting edema bilateral ankles. Neuro General: alert, awake and oriented Speech: speech normal Motor: muscle tone normal throughout Extrem General: normal to inspection, capillary refill normal and no calf tenderness Appearance: grossly normal Mental Status: mental status grossly normal Mood: congruent mood Affect: normal affect Attitude: cooperative Objective Labs Result Diagrams: 08/16/17 05:18 08/18/17 05:15 Labs: Laboratory Results - last 24 hr 08/18/17 05:15 Sodium 135 L Potassium 3.9 Chloride 107 Carbon Dioxide 21 L BUN 27 H Creatinine 1.20 H Estimated GFR 44.8 L BUN/Creatinine Ratio 22.5 H Glucose 95 Calcium 7.7 L PROCEDURE: CT HEAD/BRAIN WO CON INDICATIONS: hypertensive, hx of cva TECHNIQUE: Noncontrast 4.5 mm thick angled axial sections acquired from the foramen magnum to the vertex, with coronal and sagittal reformats. For radiation dose reduction, the following was used: automated exposure control, adjustment of mA and/or kV according to patient size. COMPARISON: [facility], CT, CT HEAD/BRAIN WO CON, 08/12/2017, 9:33. FINDINGS: Image quality: Excellent. CSF spaces: Basal cisterns are patent. No extra-axial fluid collections. There is mild cerebral volume loss, with resultant ventricular and sulcal prominence. Brain: No intracranial hemorrhage or midline shift. Bilateral areas of encephalomalacia are redemonstrated within the right parietal lobe extending to the posterior temporal lobe and within the left frontal lobe. Findings are consistent with sequela of prior infarcts. There are subcortical, periventricular and deep white matter hypodensities consistent with [id number] chronic small vessel ischemic changes. Focal hypodensity is also demonstrated within the right caudate nucleus compatible with a lacunar infarct of indeterminate acuity. There is a calcified extra-axial mass redemonstrated along the posterior left parietal lobe consistent with a meningioma. This measures up to approximately 1.0 x 1.0 cm in transverse dimension. There is intracranial internal carotid artery atherosclerosis. Skull and face: Calvarium and visualized facial bones are intact, without suspicious lesions. Sinuses: Visualized sinuses demonstrate moderate mucosal thickening bilaterally in the maxillary sinuses with sinus retention cysts or mucosal polyps inferiorly. There is also mild mucosal thickening within the ethmoid sinuses. Mastoid air cells are clear. IMPRESSION: 1. No acute intracranial hemorrhage. 2. Bilateral areas of encephalomalacia redemonstrated consistent with prior infarcts. 3. Small lacunar infarct in the right caudate of indeterminate acuity. 4. Small calcified extra-axial mass redemonstrated along the posterior left parietal lobe compatible with a meningioma. 5. Bmmd-cu-hwbnogit chronic white matter some of his ischemic changes and mild cerebral volume loss. Dictated by: Lex Dodson M.D. on 08/13/2017 at 17:45 Approved by: Lex Dodson M.D. on 08/13/2017 at 17:50 PROCEDURE: CT ANGIO CHEST ABDOMEN PELVIS INDICATIONS: Unresponsive TECHNIQUE: Precontrast 5 mm thick sections acquired from the lung apices to the iliac crests. After the administration of intravenous contrast, 2.5 mm thick sections again acquired from the lung apices to the iliac crests. Maximum intensity projection (MIP) oblique sagittal and coronal reformats were then acquired. For radiation dose reduction, the following was used: automated exposure control. COMPARISON: [facility], CR, XR CHEST 1V, 08/12/2017, 9:49. FINDINGS: Image quality: Excellent. AORTA: The aorta is normal in caliber and position. No aneurysm or dissection. The aortic root measures 3.3 cm in diameter. The ascending aorta measures 3.2 cm in diameter. The proximal aortic arch measures 3.1 cm, tapering to 2.6 cm and is large. Descending thoracic aorta measures from 2.2 cm to 2.4 cm. Abdominal aorta is normal in size. CHEST: Lungs and pleura: Left lower lobe infiltrate and consolidation consistent with pneumonia. There is right basilar atelectasis. Mild bilateral groundglass infiltrates may be secondary to mild pulmonary edema. No pleural effusions or pneumothorax. Central and peripheral airways are patent and normal in caliber. Mediastinum: There is an endotracheal tube with the tip 1.2 cm above cezar. Heart size is normal. No pericardial effusion. No mediastinal or hilar adenopathy by size criteria. Central pulmonary arteries are normal in size. Esophagus is normal in caliber. Distal esophagus is distended likely secondary to gastroesophageal reflux. Bones and chest wall: No axillary adenopathy by size criteria. Thyroid gland is normal. No suspicious bony lesions. No vertebral body compression fractures. Multiple old left rib fractures are noted. ABDOMEN: Vasculature: Celiac trunk is patent and normal in color. 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 Inferior mesenteric artery is patent. There is a single renal artery on each side with renal artery ostium calcifications. Renal arteries are patent. Solid organs: Liver is normal in size and enhancement. Gallbladder contains ossified gallstones. Biliary system is non-dilated. Pancreas is atrophic with fatty infiltration. Spleen is normal in size and enhancement. No adrenal nodules. Both kidneys are normal in size and enhancement, without hydronephrosis. Peritoneum and bowel: No free fluid or air. Bowel loops are normal in caliber and wall thickness. Nodes and vessels: No retroperitoneal or mesenteric adenopathy by size criteria. Inferior vena cava is normal in morphology. Miscellaneous: No ventral hernias. PELVIS: Genitourinary: Bladder is contracted with a Gonzalez catheter. Miscellaneous: No inguinal hernias or adenopathy. No ventral hernias. Bones: No suspicious bony lesions. No vertebral body compression fractures. There is grade 1 anterolisthesis of L5 over S1. Degenerative disc and facet disease in thoracic and lumbar spine. IMPRESSION: 1. No evidence for aortic dissection or aneurysm. 2. High-grade stenosis of SMA. 3. Left lower lobe pneumonia. 4. Mild bilateral groundglass infiltrates may be secondary to superimposed pulmonary edema. Recommend clinical correlation. 4. Distended distal esophagus may be secondary gastroesophageal reflux. 5. Cholelithiasis. Dictated by: Francesco Rodriguez M.D. on 08/12/2017 at 11:02 Approved by: Francesco Rodriguez M.D. on 08/12/2017 at 11:18 PROCEDURE: XR CHEST 1V INDICATIONS: intubation TECHNIQUE: One view of the chest was acquired. COMPARISON: [facility], CT, CT ANGIO CHEST ABDOMEN PELVIS, 08/12/2017, 10: 28. [facility], CR, ABDOMEN ACUTE SERIES, 07/30/2016, 14:06. FINDINGS: Surgical changes and devices: The tip of the endotracheal tube is within the right mainstem bronchus. There is a cardiac pacemaker. Lungs and pleura: Left lower lobe infiltrates suspicious for pneumonia or atelectasis. No pleural effusions or pneumothorax. Mediastinum: Mediastinal contours appear normal. Heart size is normal. Bones and chest wall: No suspicious bony lesions. Overlying soft tissues appear unremarkable. IMPRESSION: 1. The tip of the endotracheal tube is within the right mainstem bronchus. 2. Left lower lobe pneumonia or atelectasis. Dr. Johnson was informed of the result on 08/12/2017 at 1101 hours. The ET tube was pulled back. On the follow up CT, it is 1.2 cm above cezar. Dictated by: Francesco Rodriguez M.D. on 08/12/2017 at 10:58 Approved by: Francesco Rodriguez M.D. on 08/12/2017 at 11:02 Discharge Plan Discharge Plan Patient Disposition: Home Health Service Discharge comment: Patient will need home health services including speech, PT, OT Provider Discharge Instructions Diet: Carb-consistent/Diabetic Activity: Up with assistance Oxygen: Room air Discharge Data Primary Care Provider: Christiano Orr Attending Provider: Amado Storey Admit Date/Time: 08/12/17 11:50
--- NOTE | 2017-08-18 10:54 | CM.DPC ---
Addendum entered by Delia Mora LPN 08/18/17 14:17: Pt's 21 year old granddaughter is here to slat pickler her grandmother. She noted her dad is still at work but conferred with him several times by phone during the d/c process with both FLORENCIO Bedoya and this d/c raw material planner. One script was provided by the hospitalist team (the updated insulin order) but Dr. Martins confirmed in discussion with FLORENCIO Bedoya that the PCP/ Dr. Reji Orr would have to order the rest. Pt has not been filling any of her medications and thus has none of them at home. Pt confirms her pharmacy as [facility] in [place]. NEHEMIAH Bradley has made a followup appt with Dr. Orr/clinic [place] on August 24 (at request of family). Granddaughter confirms that her dad will call the clinic and get the prior medications called in. Granddaughter also confirms that pt will not be left along and that all medicines will be managed by the family. She says her mother has been working on the insurance issues. Of note: JM Verdin of [place] confirms that the [facility] is generally used as full insurance for someone who is a who is 100 disabled or the of same. She says they manage this differently and out of state. Often manages the Medicare also when pt qualifies for same. P: home today, [facility] to follow, resources given as planned and pt to follow up as noted with her PCP. Original Note: DCP: continued: Case received and EMR for last few days reviewed. Discussed case in Interdisc team meeting and then with BURIAL VAULT SETTERIta Riggins/hospitalist. Gilson reports pt is medically ready for d/c to either a snf setting or home with HH and 24/7 care. Reviewed prior DCP notes and see that [facility] is poised to open pt to service. BUSINESS SERVICES REPRESENTATIVE cognitive eval and recommendations noted and have added this to the HH RN/PT/OT/BUSINESS SERVICES REPRESENTATIVE orders. Looked in on pt but she was in shower with NEHEMIAH. Spoke with FLORENCIO Bedoya and then called pt's son Xavier [phone]. Advised him that the care team is strongly recommending 24/7 care and complete management of pt's medications. Xavier said that will be fine and they plan to do this. Will also give him Health Insurance counseling/SHIBA information/contact numbers and 2018 Senior Resource Guide . Plan to call Yuriy Betancourt [place] social service assistant Delfina Verdin to get her imput and advice for followup. P: home today. Xavier will be here at 1400 to pick pt up and will go over these things with him then.
[2017-08-18] MEDS: INSULIN ASPART 100 UNIT/ML INSULN PEN SUBCUT (12:24)
== END 2017-08-18 14:20 | disposition home health service (06) | DRG 637 ==
LOC: ED 11:39 → ICU 11:52
PROVIDERS: Nurse Practitioner Acute Care; Admitting Provider Internal Medicine; Emergency Provider Emergency Medicine; Family Provider Family Medicine; PCP Family Medicine; Visit Provider Internal Medicine
DX: E11.01 Type 2 diabetes mellitus with hyperosmolarity with coma (principal); J69.0 Pneumonitis due to inhalation of food and vomit; J15.9 Unspecified bacterial pneumonia; E87.2 Acidosis; N17.9 Acute kidney failure, unspecified; Z79.4 Long term (current) use of insulin; E86.9 Volume depletion, unspecified; E87.5 Hyperkalemia; I48.91 Unspecified atrial fibrillation; Z79.01 Long term (current) use of anticoagulants; Z95.810 Presence of automatic (implantable) cardiac defibrillator
CPT/HCPCS: 36415; 36592; 36600; 51701; 51705; 70450; 71045; 71275; 74174; 80048; 80053; 80320; 80329; 81001; 82009; 82550; 82553; 82805; 82947; 83605; 83735; 83880; 84132; 84145; 84484; 85025; 85610; 85730; 87040; 87086; 87797; 92526; 92610; 93005; 93041; 94003; 94010; 94762; 94770; 94799; 96125; 97116; 97163; 97165; 97530; 97535; 99285; 99291; 99292; G0480; J0330; J0610; J1650; J1956; J2060; J2704

== ENCOUNTER → 2018-02-08 14:09 | Outpatient (CLI) | payer MEDICARE, SELFPAY ==
[2017-08-12 11:57] VITALS: BMI 42.0
[2017-08-13 08:51] VITALS: PULSE 65; RESP 16; O2SAT 99
== END ==
PROVIDERS: Family Provider Family Medicine; PCP Family Medicine; Visit Provider Family Medicine
DX: T23.372A Burn of third degree of left wrist, initial encounter (principal); E11.622 Type 2 diabetes mellitus with other skin ulcer
CPT/HCPCS: 16020; 99203; 99213

== ENCOUNTER → 2018-02-14 12:58 | Outpatient (CLI) | payer MEDICARE, SELFPAY ==
[2017-08-12 11:57] VITALS: BMI 42.0
[2017-08-13 08:51] VITALS: PULSE 65; RESP 16; O2SAT 99
== END ==
PROVIDERS: Family Provider Family Medicine; PCP Family Medicine; Visit Provider Family Medicine
DX: T23.372A Burn of third degree of left wrist, initial encounter (principal); E11.622 Type 2 diabetes mellitus with other skin ulcer
CPT/HCPCS: 16020

== ENCOUNTER → 2018-02-22 13:02 | Outpatient (CLI) | payer MEDICARE, SELFPAY ==
[2017-08-12 11:57] VITALS: BMI 42.0
[2017-08-13 08:51] VITALS: PULSE 65; RESP 16; O2SAT 99
== END ==
PROVIDERS: Family Provider Family Medicine; PCP Family Medicine; Visit Provider Family Medicine
DX: T23.372A Burn of third degree of left wrist, initial encounter (principal); E11.622 Type 2 diabetes mellitus with other skin ulcer
CPT/HCPCS: 16020

== ENCOUNTER → 2018-03-01 13:02 | Outpatient (CLI) | payer MEDICARE, SELFPAY ==
[2017-08-12 11:57] VITALS: BMI 42.0
[2017-08-13 08:51] VITALS: PULSE 65; RESP 16; O2SAT 99
== END ==
PROVIDERS: Family Provider Family Medicine; PCP Family Medicine; Visit Provider Family Medicine
DX: T23.372A Burn of third degree of left wrist, initial encounter (principal); E11.622 Type 2 diabetes mellitus with other skin ulcer
CPT/HCPCS: 99213

== ENCOUNTER → 2018-03-08 09:25 | Outpatient (CLI) | payer MEDICARE, SELFPAY ==
[2017-08-12 11:57] VITALS: BMI 42.0
[2017-08-13 08:51] VITALS: PULSE 65; RESP 16; O2SAT 99
== END ==
PROVIDERS: Family Provider Family Medicine; PCP Family Medicine; Visit Provider Family Medicine
DX: T23.372A Burn of third degree of left wrist, initial encounter (principal); E11.622 Type 2 diabetes mellitus with other skin ulcer
CPT/HCPCS: 16020

== ENCOUNTER → 2018-03-15 10:03 | Outpatient (CLI) | payer MEDICARE, SELFPAY ==
[2017-08-12 11:57] VITALS: BMI 42.0
[2017-08-13 08:51] VITALS: PULSE 65; RESP 16; O2SAT 99
== END ==
PROVIDERS: Family Provider Family Medicine; PCP Family Medicine; Visit Provider Family Medicine
DX: T23.372A Burn of third degree of left wrist, initial encounter (principal); E11.622 Type 2 diabetes mellitus with other skin ulcer
CPT/HCPCS: 16020

== ENCOUNTER → 2018-03-24 09:48 | Outpatient (CLI) | payer MEDICARE, SELFPAY ==
[2017-08-12 11:57] VITALS: BMI 42.0
[2017-08-13 08:51] VITALS: PULSE 65; RESP 16; O2SAT 99
== END ==
PROVIDERS: Family Provider Family Medicine; PCP Family Medicine; Visit Provider Family Medicine
DX: T23.372A Burn of third degree of left wrist, initial encounter (principal); E11.622 Type 2 diabetes mellitus with other skin ulcer
CPT/HCPCS: 16020

== ENCOUNTER → 2018-03-31 09:22 | Outpatient (CLI) | payer MEDICARE, SELFPAY ==
[2017-08-12 11:57] VITALS: BMI 42.0
[2017-08-13 08:51] VITALS: PULSE 65; RESP 16; O2SAT 99
== END ==
PROVIDERS: Family Provider Family Medicine; PCP Family Medicine; Visit Provider Family Medicine
DX: T23.372A Burn of third degree of left wrist, initial encounter (principal); E11.622 Type 2 diabetes mellitus with other skin ulcer
CPT/HCPCS: 16020

== ENCOUNTER → 2018-04-11 09:45 | Outpatient (CLI) | payer MEDICARE, SELFPAY ==
[2017-08-12 11:57] VITALS: BMI 42.0
[2017-08-13 08:51] VITALS: PULSE 65; RESP 16; O2SAT 99
== END ==
PROVIDERS: Family Provider Family Medicine; PCP Family Medicine; Visit Provider Family Medicine
DX: T23.37 Burn of third degree of wrist (principal); E11.622 Type 2 diabetes mellitus with other skin ulcer
CPT/HCPCS: 99212